=== PATIENT | male | born 1960 | race Hispanic/Latino ===

== ENCOUNTER 2017-02-22 19:50 | Inpatient (IN) | payer BC ==
[2017-02-22] MEDS ORDERED: TDAP Vaccine 0.5 mL Syr IM ONE (20:02)
[2017-02-22] MEDS ORDERED: Oxycodone/Acetaminophen 5/325 mg Tab PO STA (20:02)
--- NOTE | 2017-02-22 20:10 | ED PDOC ---
Upper Extremity Pain/Injury Time Seen by Provider: 02/22/17 19:58 Chief Complaint (Nursing): Upper Extremity Problem/Injury Chief Complaint (Provider): right hand injury History Per: Patient History/Exam Limitations: no limitations Onset/Duration Of Symptoms: Mins (prior to arrival ) Additional Complaint(s): Cj Dang is a 56 year old male, with no previous medical history, who presents to the ED via EMS after sustaining a right hand injury prior to arrival. Pt reports to carrying an A.C. up the stairs when he tripped causing the A.C. to fall on his right hand. Pt denies any head trauma, loss of consciousness or other injury. Pt denies any numbness or tingling in the hand. Pt. is R hand dominant. PMD: Dr. Chavez Past Medical History Reviewed: Historical Data, Nursing Documentation, Vital Signs Vital Signs: Last Vital Signs Temp 97.6 F 02/22/17 19:54 Pulse 92 H 02/22/17 19:54 Resp 18 02/22/17 19:54 BP 166/88 H 02/22/17 19:54 Pulse Ox 99 02/22/17 19:54 - Medical History PMH: No Chronic Diseases - Family History Family History: States: Unknown Family Hx - Allergies Allergies/Adverse Reactions: Allergies Allergy/AdvReac Type Severity Reaction Status Date / Time No Known Allergies Allergy Verified 02/17/15 09:19 Review of Systems ROS Statement: Except As Marked, All Systems Reviewed And Found Negative Musculoskeletal: Positive for: Hand Pain (right ) Neurological: Negative for: Numbness, Other (tingling ) Physical Exam - Reviewed Nursing Documentation Reviewed: Yes Vital Signs Reviewed: Yes - Physical Exam Appears: Positive for: Well, In Acute Distress (mild painful ) Head Exam: Positive for: ATRAUMATIC, NORMAL INSPECTION, NORMOCEPHALIC Skin: Positive for: Normal Color, Warm. Negative for: Rash Eye Exam: Positive for: EOMI, Normal appearance, PERRL ENT: Positive for: Normal ENT Inspection Neck: Positive for: Normal, Painless ROM Cardiovascular/Chest: Positive for: Regular Rate, Rhythm Respiratory: Positive for: CNT, Normal Breath Sounds Pulses-Radial (R): 2+ Gastrointestinal/Abdominal: Positive for: Normal Exam, Soft. Negative for: Tenderness Back: Positive for: Normal Inspection Extremity: Positive for: Tenderness (right dorsum of the hand ), Capillary Refill (< 2 seconds ), Swelling (right dorsum of the hand ), Other (0.5 cm linear laceration between 4th and 5th MCP ) Neurologic/Psych: Positive for: Alert, Oriented - Laboratory Results Result Diagrams: 02/22/17 21:20 02/22/17 21:20 - ECG ECG: Positive for: Interpreted By Me ECG Rhythm: Positive for: Sinus Rhythm. Negative for: ST/T Changes Rate: 94 O2 Sat by Pulse Oximetry: 99 (RA) Pulse Ox Interpretation: Normal - Radiology X-Ray: Interpreted by Me (CXR) X-Ray Interpretation: No Acute Disease - Progress ED Course And Treament: Hand x-ray: acute displaced fx at mid 4th metacarpal and displaced fx at 5th MCP Case d/w Dr. Plasencia (pt.'s private orthopedist and preferred orthopedist) who requests that pt. be admitted and be given Ancef. Pt. will go to OR tomorrow. NPO at midnight. Case d/w Dr. Hassan, pt.'s PMD, and arrangements made for admission. Wound was copiously irrigated and cleansed with 1L of NS. Hand immobilized in orthoglass ulnar gutter splint applied by TIM. Medical Decision Making Medical Decision Making: Initial Impression: hand injury Initial Plan: * percocet * boostrix vaccine * x-ray right hand * reevaluation Scribe Attestation: Documented by Vy Mendez, acting as a scribe for Isael Jorge PA-C. Provider Scribe Attestation: All medical record entries made by the Scribe were at my direction and personally dictated by me. I have reviewed the chart and agree that the record accurately reflects my personal performance of the history, physical exam, medical decision making, and the department course for this patient. I have also personally directed, reviewed, and agree with the discharge instructions and disposition. Disposition - Clinical Impression Clinical Impression: Open right hand fracture - Patient ED Disposition Is Patient to be Admitted: Yes - Disposition Disposition Time: 21:00 Condition: STABLE - Pt Status Changed To: Hospital Disposition Of: Inpatient - Admit Certification Admit to Inpatient:: After my assessment, the patient will require hospitalization for at least two midnights. This is because of the severity of symptoms shown, intensity of services needed, and/or the medical risk in this patient being treated as an outpatient.
[2017-02-22] MEDS ORDERED: ceFAZolin 1 GM in Sodium Chloride 0.9% 100 ML IVPB STA (20:46)
[2017-02-22] MEDS ORDERED: Sodium Chloride 0.9% 1,000 ML IV STA (20:57)
[2017-02-22] MEDS ORDERED: Povidone Iodine Topical 10% Sol ONE (21:39)
[2017-02-22 21:55] LABS: BASO # 0.1 K/uL (0.0-0.2); BASO % 0.7 % (0.0-2.0); EOS # 0.2 K/uL (0.0-0.7); EOS % 1.7 % (0.0-4.0); HEMATOCRIT 42.2 % (35.0-51.0); LYMPH % 32.6 % (20.0-40.0); MEAN CELL VOLUME 90.6 fl (80.0-94.0); MEAN CORPUSCULAR HEMOGLOBIN 31.6 pg (27.0-31.0); MEAN CORPUSCULAR HGB CONC 34.9 g/dL (33.0-37.0); MEAN PLATELET VOLUME 7.6 fl (7.2-11.7); MONO # 0.7 K/uL (0.0-0.8); NEUT # 5.2 K/uL (1.8-7.0); NRBC % 0.1 % (0.0-0.0); RED CELL DISTRIBUTION WIDTH 13.1 % (11.5-14.5); WHITE BLOOD COUNT 9.2 K/uL (4.8-10.8)
[2017-02-22 22:01] LABS: ALB/GLOB RATIO 1.3 (1.0-2.1); ALKALINE PHOSPHATASE 85 U/L (38-126); ALT/SGPT 40 U/L (21-72); AST/SGOT 36 U/L (17-59); BILIRUBIN,TOTAL 0.7 mg/dl (0.2-1.3); BLOOD UREA NITROGEN 16 mg/dl (9-20); CALCIUM 9.4 mg/dL (8.4-10.2); CARBON DIOXIDE 21 mmol/L (22-30); CHLORIDE 104 mmol/L (98-107); GFR AFRICAN-AMERICAN > 60; GLUCOSE,RANDOM 111 mg/dL (75-110); POTASSIUM 3.7 MMOL/L (3.6-5.0); SODIUM 145 mmol/l (132-148); TOTAL PROTEIN 8.5 G/DL (6.3-8.2)
[2017-02-22 22:23] LABS: PARTIAL THROMBOPLASTIN TIME 25.4 SECONDS (23.3-32.5)
[2017-02-23] MEDS: Dextrose 5%/0.45% NS 1,000 ML IV SCH (06:44)
--- NOTE | 2017-02-23 08:46 | CP.PCM.CON ---
History of Present Illness - History of Present Illness History of Present Illness: ID: 56 yo male CC: open fracture 5th MCP joint/pt with displaced angulated fractued 4th, 5th metacarpals HPI: 56 yo male/ presents after fall last PM. Pt carrying air conmditioner, sustained fall on outstretched R hand, sustaining fx R fifth metacarpal, displaced angulated fx 4th metacarpla, and with open fracture 5th MCP. Pt admitted thru ED, stabilized, splinted and open joint irrigated. Pt admitted for IV abios> Pt to OR for irrigation debridemnt and possible ORIF 4th 5th metacarpal fractures. Hand is massively swollen, so ORIF may nbe obviated today secondary to massive sweling. discussed with pt at length pt to Or TODAY Past Patient History - Past Medical History & Family History Past Medical History?: Yes - Past Social History Smoking Status: Never Smoked - MUSCULOSKELETAL/RHEUMATOLOGICAL Hx Musculoskeletal Disorders: Yes Hx Back Pain: Yes Hx Falls: Yes Hx Fractures: Yes - PSYCHIATRIC Hx Substance Use: No - SURGICAL HISTORY Hx Herniorrhaphy: Yes (40+ years ago) - ANESTHESIA Hx Anesthesia: No Hx Anesthesia Reactions: No Hx Malignant Hyperthermia: No Meds Allergies/Adverse Reactions: Allergies Allergy/AdvReac Type Severity Reaction Status Date / Time No Known Allergies Allergy Verified 02/17/15 09:19 - Medications Medications: Current Medications Dextrose/Sodium Chloride (Dextrose 5%/0.45% Ns 1000 Ml) 1,000 mls @ 40 mls/hr IV .Q24H ALEX Stop: 02/24/17 06:31 Last Admin: 02/23/17 06:44 Dose: 40 mls/hr Cefazolin Sodium 1 gm/ Sodium (Chloride) 100 mls @ 100 mls/hr IVPB Q8 ALEX Morphine Sulfate (Morphine) 2 mg IVP Q4 PRN PRN Reason: Pain, moderate (4-7) Last Admin: 02/23/17 06:40 Dose: 2 mg Physical Exam - Additional Findings Additional findings: oBJECTIVE SYSTEMIC- WNL PLEASE REFER TO dR Marge Acosta h + p Systemic stance/gait- defrred encounter accomplished at bedside N/V intact R forearm/hand splited Results - Vital Signs Recent Vital Signs: Last Vital Signs Temp 98.0 F 02/23/17 07:33 Pulse 87 02/23/17 07:33 Resp 20 02/23/17 07:33 BP 130/80 02/23/17 07:33 Pulse Ox 96 02/23/17 07:33 - Labs Result Diagrams: 02/22/17 21:20 02/22/17 21:20 Labs: Laboratory Results - last 24 hr 02/22/17 21:20 WBC 9.2 RBC 4.66 Hgb 14.7 Hct 42.2 MCV 90.6 MCH 31.6 H MCHC 34.9 RDW 13.1 Plt Count 323 MPV 7.6 Neut % (Auto) 57.0 Lymph % (Auto) 32.6 Mchenry % (Auto) 8.0 Eos % (Auto) 1.7 Baso % (Auto) 0.7 Neut # 5.2 Lymph # 3.0 Mchenry # 0.7 Eos # 0.2 Baso # 0.1 PT 10.1 INR 0.97 APTT 25.4 Sodium 145 Potassium 3.7 Chloride 104 Carbon Dioxide 21 L Anion Gap 24 H BUN 16 Creatinine 0.7 L Est GFR ( Amer) > 60 Est GFR (Non-Af Amer) > 60 Random Glucose 111 H Calcium 9.4 Total Bilirubin 0.7 AST 36 ALT 40 Alkaline Phosphatase 85 Total Protein 8.5 H Albumin 4.8 Globulin 3.7 Albumin/Globulin Ratio 1.3 Blood Type B POSITIVE Antibody Screen Negative BBK History Checked No verified bt - Imaging and Cardiology Abdominal x-ray Status: Image reviewed by me Additional comment: Xrays- displace/angulated 4th/5th metacarpal fractures Assessment & Plan - Assessment and Plan (Free Text) Assessment: A- crush injury to hand pt to OR today for irrigation debriemnt if hand is too swollen the ORIFD will be defrred to next week P- TO OR today for either the definitive procedure or for the first of staged procedure. If hand is too swollen, then the open joint will be debrided and closed. ORIF of 4th, 5th metacarpals will be done either today or deferred to next week. P{ossibility of infedction, mechanical failure thromboembolic disease secondary or tertiary surgery discusased NO Promises guarantees
[2017-02-23] MEDS: ceFAZolin 1 GM in Sodium Chloride 0.9% 100 ML IVPB SCH ×2 (08:47→16:28)
--- NOTE | 2017-02-23 09:00 | HP ---
The patient is a 56-year-old male who was admitted via the Emergency Room following an accident with trauma to the right hand and arm. He was brought to the Emergency Room by EMS. He reports carrying an air conditioner upstairs and it dropped on his right hand causing significant trauma. He did not lose consciousness. He was brought to the Emergency Room where he had x-rays which showed an open wo und, right hand with a fracture. He was therefore admitted for workup and therapy to surgicall y repair displaced fracture of the mid fourth metacarpal and displaced fracture of the fifth metacarp al joint. PAST MEDICAL HISTORY: Unremarkable. FAMILY HISTORY: Nonrevealing. SOCIAL HISTORY: He does not drink or smoke. REVIEW OF SYSTEMS: Essentially unremarkable. PHYSICAL EXAMINATION: GENERAL: The patient is alert, oriented, appears to be in moderate distress because of pain. VITAL SIGNS: Blood pressure 130/80, pulse of 87, respiratory rate 20. He is afebrile. O2 sat 96% o n room air. SKIN: Shows fair turgor. HEENT: Pupils equal, react to light and accommodation. LUNGS: Clear. HEART: Regular. No murmurs or gallops. ABDOMEN: Soft, nontender, no organomegaly. EXTREMITIES: Show edema of the right hand with an open laceration. There are fair pulses bilaterall y. CENTRAL NERVOUS SYSTEM: Grossly intact. LABORATORY DATA: Remarkable for WBC of 9.2, hemoglobin 14.7, platelet count of 323,000. Sodium of 1 45, potassium 3.7, BUN 16, creatinine 0.7. Serum glucose 111. PT 10.1, INR 0.97. Chest x-ray and x-ray of right hand done, official reports pending. EKG: Regular sinus rhythm. IMPRESSION: Trauma to right hand with a fracture of fingers and laceration with significant edema. PLAN: The patient is medically cleared for surgical intervention. No medical contraindications to s urgery. Case discussed with Dr. Plasencia. We will continue therapy as ordered. Analgesics for pain ordered. IV antibiotics also ordered. Jose Guadalupe Hassan MD cc: [id number] TT: 02/23/2017 08:59:35 en
--- NOTE | 2017-02-23 10:39 | RAD ---
HISTORY: clearance COMPARISON: No prior. FINDINGS: LUNGS: The lungs are well inflated and clear. PLEURA: No significant pleural effusion identified, no pneumothorax apparent. CARDIOVASCULAR: Normal. OSSEOUS STRUCTURES: No significant abnormalities. VISUALIZED UPPER ABDOMEN: Normal. OTHER FINDINGS: None. IMPRESSION: No active pulmonary disease.
--- NOTE | 2017-02-23 11:34 | RAD ---
PROCEDURE: Right Hand Radiographs. HISTORY: Trauma COMPARISON: 09/24/2013 FINDINGS: BONES: There is an oblique comminuted fracture in the 5th metatarsal neck with dorsal angulation. There is a transverse mildly displaced fracture in the midshaft of the 4th metatarsal. There is significant dorsal angulation. There is diffuse bone demineralization. 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 OTHER FINDINGS: None. IMPRESSION: 1. Oblique comminuted fracture in the 5th metatarsal neck with dorsal angulation. 2. Transverse mildly displaced fracture in the midshaft of the 4th metatarsal with significant dorsal angulation.
[2017-02-23] MEDS ORDERED: Bupivacaine 0.5% Inj(30mL) ONE (16:25)
[2017-02-23] MEDS ORDERED: MethylPREDNISolone Depo 40 mg/ml Inj ONE (16:25)
[2017-02-23] MEDS ORDERED: Bacitracin Ointment 30 GM TUBE ONE (16:25)
[2017-02-23] MEDS ORDERED: Thrombin Topical 5,000 IU Spray Kit ONE (16:25)
[2017-02-23] MEDS ORDERED: Absorbable Gelatin Sponge Size 12-7 ONE (16:25)
[2017-02-23] MEDS ORDERED: Propofol 10 mg/ml Inj (20 ML) ONE (16:37)
[2017-02-23] MEDS ORDERED: Midazolam 2 MG/2 ML VIAL ONE (16:38)
[2017-02-23] MEDS ORDERED: Rocuronium 10 mg/ml (5 ml) ONE ×2 (16:38→18:15)
[2017-02-23] MEDS ORDERED: Iohexol 300 100 ML IJ ONE (17:06)
[2017-02-23] MEDS ORDERED: Dexamethasone 4 mg/1 ml ONE (17:23)
[2017-02-23] MEDS ORDERED: Lactated Ringer's 1,000 ML IV ONE ×2 (17:43→19:00)
[2017-02-23] MEDS ORDERED: Sevoflurane - Inhalation Anesthetic Liq (250 ml) ONE (18:18)
--- NOTE | 2017-02-23 18:25 | CARD ---
APPROVED REPORT EKG Measurement Heart [id number] MD [id number] <Conclusion> Normal sinus rhythm Nonspecific ST and T wave abnormality Prolonged QT Abnormal ECG
[2017-02-23] MEDS ORDERED: Neostigmine Methylsulfate 3mg/3ml Syringe IV ONE (18:49)
[2017-02-23] MEDS ORDERED: Neostigmine Methylsulfate 2 MG/2 ML ML IV ONE (18:49)
--- NOTE | 2017-02-23 19:00 | PCM.SURG1 ---
Surgeon's Initial Post Op Note - Surgeon's Notes Surgeon: Erinn [employer] Curator: HEATHER Bermeo Type of Anesthesia: General Endo Anesthesia Administered By: Dr Holder Pre-Operative Diagnosis: Displaced/comminuted 5th MCP fx/fxmidshaft 4th metacarpal. \open joint 4th MCP joint Operative Findings: as above. comminuted 5th MCP fx(head split Post-Operative Diagnosis: as above Operation Performed: ORIF doisplaced 4th/5th metacarpal fx. irrigation/ debridement 4th MCP joint. applx volar splint. positioning of fluoro/ interpreattion of video Specimen/Specimens Removed: callous Estimated Blood Loss: EBL {In ML}: 15 Blood Products Given: N/A Drains Used: No Drains Post-Op Condition: Good Date of Surgery/Procedure: 02/23/17 Time of Surgery/Procedure: 17:30 (time in, room/anaesthesia induction time 1645)
--- NOTE | 2017-02-23 19:39 | PCM.ANESB1 ---
Interscalene Block - Brachial Plexus Date of Procedure: 02/23/17 Anesthesiologist: tavon Pre-Procedure Diagnosis: postprocedure acute pain Post-Procedure Diagnosis: s/p metacarpal plating/orif Procedure Performed: Interscalene Block of Brachial Plexus Right - Procedure Interscalene Block of Brachial Plexus: This procedure was explained to the patient that it is for post-operative pain management. Consent was obtained after a thorough discussion with the patient regarding the benefits and possible complications of local anesthetic block of the Brachial Plexus at the low Interscalene/ supraclavicular area. The patient was brought to the Operating Room and standard monitors were applied. Time out was held with the circulating nurse to confirm the correct surgery and appropriate block. prior to extubation, after the completion of the procedure, the patient's head was gently rotated away from the right operative shoulder and the anterior scalene groove was carefully palpated. The ultrasound transducer was then applied to the skin in the transverse plane and the brachial plexus was visualized lateral to the carotid artery and in between the anterior and middle scalene muscles, and followed cephaled until optimal supraclavicular visualization. After identification,the anterior lateral portion of the neck was prepped with Betadine solution three times. At this point, a # 22 gauge Stimuplex 2 inches insulated needle was inserted into the interscalene groove and directed in a caudal and midline direction. The needle was inserted lateral to the ultrasound transducer in-plane towards the brachial plexus in a [id number] direction. Needle advancement was performed carefully under direct ultrasound visualization. After repeated negative aspiration,20 cc of 0.5% bupivicaine was injected. Under ultrasound guidance the local anesthetics were observed spreading and surrounding brachial plexus. The needle was removed intact and sterile dressing was applied. The patient had stable vital signs, was extubated and transfered to recovery/icu with stable vital signs and no apparent distress.
[2017-02-24] MEDS: ceFAZolin 1 GM in Sodium Chloride 0.9% 100 ML IVPB SCH ×2 (00:37→10:15)
[2017-02-24] MEDS: Lactated Ringer's 1,000 ML IV SCH ×2 (00:46→06:50)
[2017-02-24] MEDS: Dextrose 5%/0.45% NS 1,000 ML IV SCH (06:30)
--- NOTE | 2017-02-24 09:45 | OP ---
PROCEDURE DATE: 02/23/2017 PREOPERATIVE DIAGNOSES: 1. Displaced fourth and fifth metacarpal fractures. 2. Injury to the fourth finger extensor tendon. 3. Open fracture fourth metacarpophalangeal joint. POSTOPERATIVE DIAGNOSES: 1. Displaced fourth and fifth metacarpal fractures. 2. Injury to the fourth finger extensor tendon. 3. Open fracture fourth metacarpophalangeal joint. PROCEDURES: 1. Open reduction and internal fixation of displaced fourth and fifth metacarpal fractures (metacarp al fractures x 2 with AO internal fixation). 2. Primary repair of extensor tendon. 3. Irrigation and debridement, open fracture/open fourth MCP joint. 4. Autograft allograft bone grafting. 5. Application of volar splint. SURGEON: Sage Plasencia MD PRE SALES NETWORK ENGINEER: Shameka Venegas, Certified Registered Nursing Golf Sales Manager. ANESTHESIA: General endotracheal anesthesia; Dr. Holder. COMPLICATIONS: None. DRAINS: None. OPERATIVE INDICATION: The patient is a 56-year-old gentleman who had sustained a traumatic injury at home when he fell down stairs with an air conditioner in his hand. The patient sustained direct tra michelle from the air conditioner, sustaining a severely displaced angulated fourth metacarpal fracture an d a fifth metacarpal fracture which is comminuted to the head. The patient presented to [facility] Emergency Room, irrigated, splinted and admitted, IV antibiotics. [facility] Pros, cons, risks and benefits of surgical approach were discussed. The possibility of i nfection, mechanical failure, thromboembolic disease, secondary or tertiary surgery is discussed. Th e patient can no longer stand the discomfort and wishes the surgery to be accomplished. The possibil ity of infection, mechanical failure, thromboembolic disease, stiffness, malrotation, secondary or ev en tertiary surgery is discussed. The patient wished the surgery be accomplished. The patient is we ll known to my practice and informed consent is obtained in the presence of the nurse. OPERATIVE PROCEDURE: After having obtained informed consent in the above fashion, after having ident ified side, site and procedure and a critical pause/timeout, after the satisfactory induction of the anesthetic, patient identified as Cj Dang, in the supine position with all bony prominences we ll padded, the right upper extremity is prepped and free draped in usual fashion for upper extremity surgery. The tourniquet had been applied, but is not yet inflated. After the satisfactory induction of the anesthetic, after having identified side, site and procedure and a critical pause/timeout, af ter the satisfactory induction of the anesthetic, the patient identified as Cj Dang, in the ansari pine position with all bony prominences well padded, under the surgeon's direction, AP and lateral im age intensification views are accomplished. Good position of the fluoroscope, interpretation of the video images is accomplished. At this point in time, the right upper extremity is prepped and free d raped in the usual fashion for upper extremity surgery. The tourniquet had been applied, but is not yet inflated. After exsanguinating the limb using a 6-inch Esmarch bandage, the tourniquet which had been applied is inflated to 250 mmHg. This having been accomplished, the operation is performed und er eyeglass magnification. The open fracture is identified. It does appear to communicate in the ar ea of the joint. Using a #15 blade, the skin, subcutaneous tissue and some muscle is excised. Thoro ugh irrigation and debridement is accomplished. The wound is thoroughly irrigated at this point in t quan with the antibiotic-impregnated solution. At this point in time, cultures are obtained. Aerobic , anaerobic, AFB and fungal cultures are obtained. The wound is thoroughly irrigated and at this poi nt in time, attention is turned to the extensor tendon. There is found to be compromise. There is a n extremely sharply angulated bony spicule of the fourth metacarpal and the communis extensor tendon is partially injured. At this point in time, the wound is thoroughly irrigated. Open reduction inte rnal fixation of the fourth metacarpal fracture is accomplished. A K-wire is placed to reduce the fr acture. Plate is applied. Each sequential drill hole is drilled, sounded with the depth gauge and t he appropriate size screw is placed. The reduction is found to be acceptable. It should be noted th at a bur is used to perform an osteoplasty of the bone and a DBX bone graft is accomplished as well a s autograft bone grafting from the fracture site and from the burrings. This having been accomplishe d, attention is turned to the extensor tendon and using the nonabsorbable FiberWire, a primary suture repair is accomplished with a modified Hancock stitch. The wound is thoroughly irrigated. Again, t he extensor tendon compromise is addressed. Attention is now turned to the fifth metacarpal. This f racture is more distal and involves the head. This having been accomplished, great care is taken to protect the extensor tendons. Fracture site is identified using a #15 blade and the head fracture is repaired with 3 interrupted K-wires offering temporary fixation. At this point in time, a T plate i s contoured and applied to the head. Each sequential screw hole is drilled, sounded and the appropri ate size screws are placed and the head fragment is thus affixed satisfactory to the bone. Allograft and autograft bone grafts are accomplished. An ulnar portion of the articular surface is compromise d and this is repaired using a cerclage with a nonabsorbable suture in that area. FiberWire is accom plished. Two interrupted FiberWires are used to repair the head. Autograft bone grafting and allogr aft bone grafting is accomplished. The extensor tendon having been repaired, closure is with interru pted Vicryl for the deep muscular layer and Vicryl and nylon for the skin. Anthony Gray compression dressing and volar splint is accomplished. X-rays reveal acceptable position of the construct. One of the head screws appears long, but that is in the ulnar to radial direction and not involving the j oint. So, the position is found to be acceptable. The patient is transferred from the operating tab le to the stretcher, having tolerated the procedure well. OPERATIVE PROCEDURE: 1. Open reduction and internal fixation of fourth metacarpal fracture. 2. Open reduction internal fixation of fifth metacarpal fracture. 3. Irrigation and debridement, open joint and wound.. 4. Excision skin, subcutaneous tissues and muscle, irrigation and debridement of the wound. 5. Autograft, allograft bone graft. 6. Application of volar splint. BLOOD LOSS: Approximately 15 mL. Sage Plasencia MD cc: [id number] TT: 02/24/2017 09:45:07 tn
--- NOTE | 2017-02-24 09:48 | CP.PCM.PN ---
Subjective - Date & Time of Evaluation Date of Evaluation: 02/24/17 Time of Evaluation: 09:45 - Subjective Subjective: S with post op incional discomfort Objective - Vital Signs/Intake and Output Vital Signs (last 24 hours): Temp Pulse Resp BP Pulse Ox 97.3 F L 79 20 147/93 H 97 02/24/17 07:37 02/24/17 07:37 02/24/17 07:37 02/24/17 07:37 02/24/17 07:37 Intake and Output: 02/24/17 02/24/17 06:59 18:59 Intake Total 275 Balance 275 - Medications Medications: Current Medications Lactated Ringer's (Lactated Ringer's) 1,000 mls @ 75 mls/hr IV .[id number] ALEX Last Admin: 02/24/17 06:50 Dose: Not Given Cefazolin Sodium 1 gm/ Sodium (Chloride) 100 mls @ 100 mls/hr IVPB Q8 ALEX Stop: 02/24/17 09:59 Last Admin: 02/24/17 00:37 Dose: 100 mls/hr Morphine Sulfate (Morphine) 2 mg IVP Q3 PRN PRN Reason: Pain, moderate (4-7) Last Admin: 02/24/17 07:16 Dose: 2 mg - Labs Labs: 02/22/17 21:20 02/22/17 21:20 PT 10.1 SECONDS (9.6-11.2) 02/22/17 21:20 INR 0.97 (0.92-1.08) 02/22/17 21:20 APTT 25.4 SECONDS (23.3-32.5) 02/22/17 21:20 - Additional Findings Additional findings: Obj systemic- as per Dr Hassan Musculoskekltal stance/gait- defrred R upper ext immobilized in volar splint post op Xrays- acceptable position of construct Assessment and Plan - Assessment and Plan (Free Text) Assessment: A- s/p ORIF R 4th/5th MCP fxs P= as per Dr Hassan orthopedicallyIV abios to continue stable
--- NOTE | 2017-02-24 10:48 | CP.PCM.PN ---
Subjective - Date & Time of Evaluation Date of Evaluation: 02/24/17 Time of Evaluation: 10:49 - Subjective Subjective: S/P SURGICAL REPAIR OF FRACTURED R HAND STILL IN PAIN EDEMA OF R ARM/HAND--R HAND IN A SLING Objective - Vital Signs/Intake and Output Vital Signs (last 24 hours): Temp Pulse Resp BP Pulse Ox 97.3 F L 79 20 147/93 H 97 02/24/17 07:37 02/24/17 07:37 02/24/17 07:37 02/24/17 07:37 02/24/17 07:37 Intake and Output: 02/24/17 02/24/17 06:59 18:59 Intake Total 275 Balance 275 - Medications Medications: Current Medications Lactated Ringer's (Lactated Ringer's) 1,000 mls @ 75 mls/hr IV .[id number] ALEX Last Admin: 02/24/17 06:50 Dose: Not Given Morphine Sulfate (Morphine) 2 mg IVP Q3 PRN PRN Reason: Pain, moderate (4-7) Last Admin: 02/24/17 10:09 Dose: 2 mg - Labs Labs: 02/22/17 21:20 02/22/17 21:20 PT 10.1 SECONDS (9.6-11.2) 02/22/17 21:20 INR 0.97 (0.92-1.08) 02/22/17 21:20 APTT 25.4 SECONDS (23.3-32.5) 02/22/17 21:20 - Constitutional Appears: In Acute Distress - Head Exam Head Exam: ATRAUMATIC, NORMAL INSPECTION, NORMOCEPHALIC - Eye Exam Eye Exam: EOMI, Normal appearance, PERRL Pupil Exam: NORMAL ACCOMODATION, PERRL - ENT Exam ENT Exam: Mucous Membranes Moist, Normal Exam - Neck Exam Neck Exam: Full ROM, Normal Inspection. absent: Lymphadenopathy - Respiratory Exam Respiratory Exam: Clear to Ausculation Bilateral, NORMAL BREATHING PATTERN - Cardiovascular Exam Cardiovascular Exam: REGULAR RHYTHM, +S1, +S2. absent: Murmur - GI/Abdominal Exam GI & Abdominal Exam: Soft, Normal Bowel Sounds. absent: Tenderness - Rectal Exam Rectal Exam: NORMAL INSPECTION - Extremities Exam Extremities Exam: Full ROM, Normal Capillary Refill, Normal Inspection. absent : Joint Swelling, Pedal Edema Additional comments: EDEMA WITH INFECTION OF R HAND - Back Exam Back Exam: NORMAL INSPECTION - Neurological Exam Neurological Exam: Alert, Awake, CN II-XII Intact, Normal Gait, Oriented x3 - Psychiatric Exam Psychiatric exam: Normal Affect, Normal Mood - Skin Skin Exam: Dry, Intact, Normal Color, Warm Assessment and Plan - Assessment and Plan (Free Text) Assessment: FRACTURE R HAND--FINGERS EDEMA/CELLULITIS OF R HAND S/P SURGICAL REPAIR OF R HAND Plan: CONTINUE ANALGESICS AND IV ANTIBIOTICS
--- NOTE | 2017-02-24 11:31 | RAD ---
PROCEDURE: Fluoroscopy up to 1 hr. HISTORY: RT. HAND 4TH -5TH METACARPAL FX COMPARISON: None TECHNIQUE: Standard protocol for this study/examination. FINDINGS: Submitted images from the current procedure: 6.0. Total fluoroscopic time (continuous mode) utilized during the procedure: 7.5 seconds. IMPRESSION: Less than 1 hr fluoroscopic time utilized during performance of the procedure.
[2017-02-24 21:02] VITALS: RESP 20
--- NOTE | 2017-02-25 11:19 | CP.PCM.PN ---
Subjective - Date & Time of Evaluation Date of Evaluation: 02/25/17 Time of Evaluation: 11:19 - Subjective Subjective: PAIN AND SWELLING OF R HAND PERSISTS Objective - Vital Signs/Intake and Output Vital Signs (last 24 hours): Temp Pulse Resp BP Pulse Ox 97.8 F 93 H 20 146/88 94 L 02/25/17 07:33 02/25/17 07:33 02/25/17 07:33 02/25/17 07:33 02/25/17 07:33 - Medications Medications: Current Medications Morphine Sulfate (Morphine) 2 mg IVP Q3 PRN PRN Reason: Pain, moderate (4-7) Last Admin: 02/25/17 07:26 Dose: 2 mg Oxycodone/Acetaminophen (Percocet 5/325 Mg Tab) 2 tab PO Q4 PRN PRN Reason: Pain, moderate (4-7) Stop: 02/28/17 11:16 - Labs Labs: 02/22/17 21:20 02/22/17 21:20 PT 10.1 SECONDS (9.6-11.2) 02/22/17 21:20 INR 0.97 (0.92-1.08) 02/22/17 21:20 APTT 25.4 SECONDS (23.3-32.5) 02/22/17 21:20 - Constitutional Appears: In Acute Distress - Head Exam Head Exam: ATRAUMATIC, NORMAL INSPECTION, NORMOCEPHALIC - Eye Exam Eye Exam: EOMI, Normal appearance, PERRL Pupil Exam: NORMAL ACCOMODATION, PERRL - ENT Exam ENT Exam: Mucous Membranes Moist, Normal Exam - Neck Exam Neck Exam: Full ROM, Normal Inspection. absent: Lymphadenopathy - Respiratory Exam Respiratory Exam: Clear to Ausculation Bilateral, NORMAL BREATHING PATTERN - Cardiovascular Exam Cardiovascular Exam: REGULAR RHYTHM, +S1, +S2. absent: Murmur - GI/Abdominal Exam GI & Abdominal Exam: Soft, Normal Bowel Sounds. absent: Tenderness - Rectal Exam Rectal Exam: NORMAL INSPECTION - Extremities Exam Extremities Exam: Full ROM, Normal Capillary Refill. absent: Joint Swelling, Pedal Edema Additional comments: PAIN AND SWELLING OF R HAND - Back Exam Back Exam: NORMAL INSPECTION - Neurological Exam Neurological Exam: Alert, Awake, CN II-XII Intact, Normal Gait, Oriented x3 - Psychiatric Exam Psychiatric exam: Normal Affect, Normal Mood - Skin Skin Exam: Dry, Intact, Normal Color, Warm Assessment and Plan - Assessment and Plan (Free Text) Assessment: TRAUMA R HAND FRACTURE OF FINGERS EDEMA AND CELLULITIS OF R HAND Plan: ANALGESICA AND ANTIBIOTICS ORTHO FOLLOW UP
[2017-02-25] MEDS: Oxycodone/Acetaminophen 5/325 mg Tab PO PRN ×3 (14:28→22:41)
[2017-02-25] MEDS: ceFAZolin 1 GM in Sodium Chloride 0.9% 100 ML IVPB SCH (20:45)
[2017-02-26] MEDS: Oxycodone/Acetaminophen 5/325 mg Tab PO PRN ×3 (02:40→09:58)
[2017-02-26 07:34] VITALS: BP 127/81; PULSE 72; TEMP 97.8; O2SAT 96
--- NOTE | 2017-02-26 08:24 | CP.PCM.DIS ---
Provider - Provider Date of Admission: 02/22/17 21:07 Attending physician: Jose Guadalupe Hassan MD Time Spent in preparation of Discharge (in minutes): 30 Diagnosis - Discharge Diagnosis (1) Open right hand fracture Status: Acute (2) Cellulitis of right hand excluding fingers and thumb Status: Acute Hospital Course - Lab Results Lab Results: Micro Results 02/22/17 21:20 Blood Blood Culture - Preliminary NO GROWTH AFTER 48 HOURS 02/22/17 21:25 Blood Blood Culture - Preliminary NO GROWTH AFTER 48 HOURS Most Recent Lab Values WBC 9.2 K/uL (4.8-10.8) 02/22/17 21:20 RBC 4.66 Mil/uL (4.40-5.90) 02/22/17 21:20 Hgb 14.7 g/dL (12.0-18.0) 02/22/17 21:20 Hct 42.2 % (35.0-51.0) 02/22/17 21:20 MCV 90.6 fl (80.0-94.0) 02/22/17 21:20 MCH 31.6 pg (27.0-31.0) H 02/22/17 21:20 MCHC 34.9 g/dL (33.0-37.0) 02/22/17 21:20 RDW 13.1 % (11.5-14.5) 02/22/17 21:20 Plt Count 323 K/uL (130-400) 02/22/17 21:20 MPV 7.6 fl (7.2-11.7) 02/22/17 21:20 Neut % (Auto) 57.0 % (50.0-75.0) 02/22/17 21:20 Lymph % (Auto) 32.6 % (20.0-40.0) 02/22/17 21:20 Leon % (Auto) 8.0 % (0.0-10.0) 02/22/17 21:20 Eos % (Auto) 1.7 % (0.0-4.0) 02/22/17 21:20 Baso % (Auto) 0.7 % (0.0-2.0) 02/22/17 21:20 Neut # 5.2 K/uL (1.8-7.0) 02/22/17 21:20 Lymph # 3.0 K/uL (1.0-4.3) 02/22/17 21:20 Leon # 0.7 K/uL (0.0-0.8) 02/22/17 21:20 Eos # 0.2 K/uL (0.0-0.7) 02/22/17 21:20 Baso # 0.1 K/uL (0.0-0.2) 02/22/17 21:20 PT 10.1 SECONDS (9.6-11.2) 02/22/17 21:20 INR 0.97 (0.92-1.08) 02/22/17 21:20 APTT 25.4 SECONDS (23.3-32.5) 02/22/17 21:20 Sodium 145 mmol/l (132-148) 02/22/17 21:20 Potassium 3.7 MMOL/L (3.6-5.0) 02/22/17 21:20 Chloride 104 mmol/L (98-107) 02/22/17 21:20 Carbon Dioxide 21 mmol/L (22-30) L 02/22/17 21:20 Anion Gap 24 (10-20) H 02/22/17 21:20 BUN 16 mg/dl (9-20) 02/22/17 21:20 Creatinine 0.7 mg/dL (0.8-1.5) L 02/22/17 21:20 Est GFR ( Amer) > 60 02/22/17 21:20 Est GFR (Non-Af Amer) > 60 02/22/17 21:20 Random Glucose 111 mg/dL (75-110) H 02/22/17 21:20 Calcium 9.4 mg/dL (8.4-10.2) 02/22/17 21:20 Total Bilirubin 0.7 mg/dl (0.2-1.3) 02/22/17 21:20 AST 36 U/L (17-59) 02/22/17 21:20 ALT 40 U/L (21-72) 02/22/17 21:20 Alkaline Phosphatase 85 U/L (38-126) 02/22/17 21:20 Total Protein 8.5 G/DL (6.3-8.2) H 02/22/17 21:20 Albumin 4.8 g/dL (3.5-5.0) 02/22/17 21:20 Globulin 3.7 gm/dL (2.2-3.9) 02/22/17 21:20 Albumin/Globulin Ratio 1.3 (1.0-2.1) 02/22/17 21:20 Blood Type B POSITIVE 02/22/17 21:20 Antibody Screen Negative 02/22/17 21:20 BBK History Checked No verified bt 02/22/17 21:20 - Hospital Course Hospital Course: EDEMA AND TENDERNESS OF R HAND Discharge Exam - Head Exam Head Exam: ATRAUMATIC, NORMAL INSPECTION, NORMOCEPHALIC - Eye Exam Eye Exam: EOMI, Normal appearance, PERRL Pupil Exam: NORMAL ACCOMODATION, PERRL - GI/Abdominal Exam GI & Abdominal Exam: Normal Bowel Sounds - Rectal Exam Rectal Exam: NORMAL INSPECTION - Extremities Exam Additional comments: EDEMA AND TENDERNESS OF R HAND GOOD RANGE OF MOTION OVER FINGERS - Neurological Exam Neurological exam: Alert, CN II-XII Intact, Normal Gait, Oriented x3, Reflexes Normal - Psychiatric Exam Psychiatric exam: Normal Affect, Normal Mood - Skin Skin Exam: Dry, Intact, Normal Color, Warm Discharge Plan - Follow Up Plan Condition: STABLE Disposition: HOME/ ROUTINE Patient education suggested?: Yes Additional Instructions: DISCHARGE TODAY ON NAPROSYN AND KEFLEX FOLLOWUP WITH DR ANTHONY
[2017-02-26] MEDS: ceFAZolin 1 GM in Sodium Chloride 0.9% 100 ML IVPB SCH (09:17)
--- NOTE | 2017-02-27 15:03 | PQF GENQUE ---
Dr. Hassan cellulitis of right hand was documented in 02/24 progress note. Was pt's cellulitis present or not present on admission? This form is a permanent part of the medical record Clarification of your documentation is requested to better reflect the severity of illness and intensity of treatment of your patient. Indicators present [] Specify: [] [] Specify: [] [] Specify: [] [] Specify: [] Location in the medical record that reflects the above clinical findings: [] progress note Treatment Provided: [] PHYSICIAN'S RESPONSE Based on your medical judgment of the clinical indicators outlined above please clarify the following: [] Practitioner response [] If unable to determine, please check the box, sign and date. Present On Admission (POA) Indicator: [] Present at the time of admission [] Not present at the time of admission [] Clinically Undetermined In responding to this query, please exercise your independent professional judgment. The fact that a question is asked does not imply that any particular answer is desired or expected. Thank you for your clarification on this documentation. If you have any questions please call:[ ] * Thank you, [ ]Tamara Cotton drug clerk MINI
== END 2017-02-26 15:19 | disposition home or self-care (01) | DRG 513 ==
LOC: H.ER 19:50 → H.ERHOLD 21:07 → H.MEDSURG1 02-23 00:18
PROVIDERS: ADMIT Internal Medicine Pulmonary Disease; ATTEND Internal Medicine Pulmonary Disease
PROC: 3E0234Z Introduction of Serum, Toxoid and Vaccine into Muscle, Percutaneous Approach (ICD-10-PCS; principal; 2017-02-22)
PROC: 0KBC0ZZ Excision of Right Hand Muscle, Open Approach (ICD-10-PCS; 2017-02-23)
PROC: 0LQ70ZZ Repair Right Hand Tendon, Open Approach (ICD-10-PCS; 2017-02-23)
PROC: 0PSP04Z Reposition Right Metacarpal with Internal Fixation Device, Open Approach (ICD-10-PCS; 2017-02-23)
PROC: 0PU Upper Bones, Supplement (ICD-10-PCS; 2017-02-23)
PROC: 3E0T3BZ Introduction of Anesthetic Agent into Peripheral Nerves and Plexi, Percutaneous Approach (ICD-10-PCS; 2017-02-23)
PROC: 0PSP04Z Reposition Right Metacarpal with Internal Fixation Device, Open Approach (ICD-10-PCS; 2017-02-23 17:00)
DX: S62.304B Unspecified fracture of fourth metacarpal bone, right hand, initial encounter for open fracture (principal); S66.324A Laceration of extensor muscle, fascia and tendon of right ring finger at wrist and hand level, initial encounter; L03.113 Cellulitis of right upper limb; S62.306A Unspecified fracture of fifth metacarpal bone, right hand, initial encounter for closed fracture; S61.411A Laceration without foreign body of right hand, initial encounter; Z23 Encounter for immunization; W20.8XXA Other cause of strike by thrown, projected or falling object, initial encounter

== ENCOUNTER 2017-11-19 06:50 | Inpatient (IN) | payer BC ==
[2017-11-19] MEDS ORDERED: Sodium Chloride 0.9% 1,000 ML IV STA (07:45)
--- NOTE | 2017-11-19 07:54 | ED PDOC ---
HPI: Chest Pain Time Seen by Provider: 11/19/17 07:37 Chief Complaint (Nursing): Chest Pain Chief Complaint (Provider): Chest Pain History Per: Patient History/Exam Limitations: no limitations Onset/Duration Of Symptoms: Days (x 2) Current Symptoms Are (Timing): Still Present Additional Complaint(s): 57 ear old male with a history of COPD was brought to the ED via [facility] with left sided chest pain, onset 2 days ago. Pain radiates to left shoulder and is associated with cough, nausea, vomiting and epigastric pain. Denies fever and SOB. PMD: Dr. Jose Guadalupe Hassan MD Past Medical History Reviewed: Historical Data, Nursing Documentation, Vital Signs Vital Signs: Last Vital Signs Temp 98.2 F 11/19/17 07:05 Pulse 124 H 11/19/17 07:05 Resp 18 11/19/17 07:05 BP 157/85 H 11/19/17 07:05 Pulse Ox 95 11/19/17 10:20 - Medical History PMH: COPD, Fractures - Surgical History Surgical History: Hernia Repair - Family History Family History: States: Unknown Family Hx - Home Medications Home Medications: Ambulatory Orders Medication Instructions Recorded Cephalexin [Keflex] 500 mg PO TID #15 capsule 02/26/17 Naproxen [Naprosyn Tab] 375 mg PO BID #30 tab 02/26/17 oxyCODONE/Acetaminophen [Percocet 1 tab PO Q6 #15 tab 02/26/17 5/325 mg Tab] - Allergies Allergies/Adverse Reactions: Allergies Allergy/AdvReac Type Severity Reaction Status Date / Time No Known Allergies Allergy Verified 02/17/15 09:19 Review of Systems ROS Statement: Except As Marked, All Systems Reviewed And Found Negative Constitutional: Negative for: Fever Cardiovascular: Positive for: Chest Pain (left sided) Respiratory: Negative for: Shortness of Breath Gastrointestinal: Positive for: Nausea, Vomiting, Abdominal Pain (epigastric) Physical Exam - Reviewed Nursing Documentation Reviewed: Yes Vital Signs Reviewed: Yes - Physical Exam Appears: Positive for: Non-toxic Head Exam: Positive for: ATRAUMATIC, NORMOCEPHALIC Skin: Positive for: Normal Color, Warm, Dry Eye Exam: Positive for: EOMI, Normal appearance, PERRL Cardiovascular/Chest: Positive for: Regular Rate, Rhythm Respiratory: Positive for: Decreased Breath Sounds (bilaterally). Negative for : Wheezing Gastrointestinal/Abdominal: Positive for: Tenderness (epigastric) Extremity: Positive for: Normal ROM. Negative for: Calf Tenderness, Swelling Neurologic/Psych: Positive for: Alert, Oriented (x 3) - Laboratory Results Result Diagrams: 11/19/17 08:20 11/19/17 08:20 - ECG O2 Sat by Pulse Oximetry: 95 (RA) Pulse Ox Interpretation: Normal Medical Decision Making Medical Decision Making: Time: 07:45 Initial Plan: --EKG --CMP --Troponin --CBC --Urine dip --Chest x-ray --Normal Saline --Nitroglycerin .4 mg SL --Pepcid 20 mg IVP --Zofran Inj 4 mg IVP Time: 08:57 Chest X-ray FINDINGS: LUNGS: No active pulmonary disease. Improved inspiratory volume is identified. PLEURA: No significant pleural effusion identified. No pneumothorax apparent. CARDIOVASCULAR: Normal. OSSEOUS STRUCTURES: No significant abnormalities. VISUALIZED UPPER ABDOMEN: Normal. OTHER FINDINGS: None. IMPRESSION: No interval acute cardiopulmonary disease appreciated. Improved inspiratory volume noted bilaterally. Scribe Attestation: Documented by Mima Mc, acting as a scribe for Ashish Valentin MD Provider Scribe Attestation: All medical record entries made by the Scribe were at my direction and personally dictated by me. I have reviewed the chart and agree that the record accurately reflects my personal performance of the history, physical exam, medical decision making, and the department course for this patient. I have also personally directed, reviewed, and agree with the discharge instructions and disposition. Disposition - Clinical Impression Clinical Impression: Chest pain - Patient ED Disposition Is Patient to be Admitted: Yes - Disposition Disposition Time: 10:20 Condition: FAIR Forms: [employer] (Guyanese) - Pt Status Changed To: Hospital Disposition Of: Observation - POA Present On Arrival: None
[2017-11-19 08:32] LABS: BASO % 0.3 % (0.0-2.0); EOS # 0.1 K/uL (0.0-0.7); EOS % 0.4 % (0.0-4.0); HEMOGLOBIN 16.4 g/dL (12.0-18.0); LYMPH # 0.6 K/uL (1.0-4.3); LYMPH % 4.3 % (20.0-40.0); MEAN CELL VOLUME 90.1 fl (80.0-94.0); MEAN CORPUSCULAR HEMOGLOBIN 30.3 pg (27.0-31.0); MEAN CORPUSCULAR HGB CONC 33.6 g/dL (33.0-37.0); MEAN PLATELET VOLUME 8.4 fl (7.2-11.7); MONO % 7.6 % (0.0-10.0); NEUT # 11.7 K/uL (1.8-7.0); NEUT % 87.4 % (50.0-75.0); PLATELET COUNT 312 K/uL (130-400); RBC 5.41 Mil/uL (4.40-5.90); RED CELL DISTRIBUTION WIDTH 13.1 % (11.5-14.5); WHITE BLOOD COUNT 13.4 K/uL (4.8-10.8)
[2017-11-19 08:38] LABS: ALBUMIN 4.9 g/dL (3.5-5.0); ALT/SGPT 57 U/L (21-72); AST/SGOT 27 U/L (17-59); BLOOD UREA NITROGEN 17 mg/dl (9-20); CALCIUM 9.4 mg/dL (8.4-10.2); GFR AFRICAN-AMERICAN > 60; GFR NON-AFRICAN AMERICAN > 60
[2017-11-19 08:43] LABS: ALB/GLOB RATIO 1.3 (1.0-2.1)
--- NOTE | 2017-11-19 08:59 | RAD ---
HISTORY: chest pain COMPARISON: Portable chest 02/22/2017. TECHNIQUE: Chest PA and lateral FINDINGS: LUNGS: No active pulmonary disease. Improved inspiratory volume is identified. PLEURA: No significant pleural effusion identified. No pneumothorax apparent. CARDIOVASCULAR: Normal. OSSEOUS STRUCTURES: No significant abnormalities. VISUALIZED UPPER ABDOMEN: Normal. OTHER FINDINGS: None. IMPRESSION: No interval acute cardiopulmonary disease appreciated. Improved inspiratory volume noted bilaterally.
[2017-11-19 10:00] LABS: LYMPHOCYTE 3 % (20-50); MONOCYTE 7 % (0-10); NEUTROPHIL 90 % (42-75); PLATELET ESTIMATE NORMAL (NORMAL); TOTAL CELLS COUNTED 100
--- NOTE | 2017-11-19 17:30 | CP.PCM.CON ---
History of Present Illness - History of Present Illness History of Present Illness: I was asked to see patient by Dr Hassan. Patient is a 57 year old male with PMH HTN, hypercholesterolemia who presents with chest pain. He describes a pressure like sensation which occurs with exertion. It is left sided without radiation. There was associated dyspnea. Symptoms began one day prior to the admission. The patient states symptoms are persistent and therefore he presented to [facility]. Review of Systems - Constitutional Constitutional: absent: As Per HPI, Anorexia, Chills, Daytime Sleepiness, Excessive Sweating, Fatigue, Fever, Frequent Falls, Headache, Increased Appetite , Lethargy, Malaise, Night Sweats, Snoring, Sleep Apnea, Weight Gain, Weight Loss, Weakness, Other - EENT Eyes: absent: As Per HPI, Blind Spots, Blurred Vision, Change in Vision, Decreased Night Vision, Diplopia, Discharge, Dry Eye, Exophthalmos, Floaters, Irritation, Itchy Eyes, Loss of Peripheral Vision, Pain, Photophobia, Requires Corrective Lenses, Sees Flashes, Spots in Vision, Tunnel Vision, Other Visual Disturbances, Loss of Vision, Other Ears: absent: As Per HPI, Decreased Hearing, Ear Discharge, Ear Pain, Tinnitus, Abnormal Hearing, Disequilibrium, Dizziness, Other Nose/Mouth/Throat: absent: As Per HPI, Epistaxis, Nasal Congestion, Nasal Discharge, Nasal Obstruction, Nasal Trauma, Nose Pain, Post Nasal Drip, Sinus Pain, Sinus Pressure, Bleeding Gums, Change in Voice, Dental Pain, Dry Mouth, Dysphagia, Halitosis, Hoarsness, Lip Swelling, Mouth Lesions, Mouth Pain, Odynophagia, Sore Throat, Throat Swelling, Tongue Swelling, Facial Pain, Neck Pain, Neck Mass, Other - Cardiovascular Cardiovascular: Chest Pain, Dyspnea - Respiratory Respiratory: Dyspnea - Gastrointestinal Gastrointestinal: absent: As Per HPI, Abdominal Pain, Belching, Bloating, Change in Bowel Habits, Change in Stool Character, Coffee Ground Emesis, Constipation, Cramping, Diarrhea, Dyspepsia, Dysphagia, Early Satiety, Excessive Flatus, Fecal Incontinence, Heartburn, Hematemesis, Hematochezia, Loose Stools, Melena, Nausea, Odynophagia, Temesmus, Vomiting, Other - Genitourinary Genitourinary: absent: As Per HPI, Change in Urinary Stream, Difficulty Urinating, Dysuria, Flank Pain, Hematuria, Pyuria, Nocturia, Urinary Incontinence, Urinary Frequency, Urinary Hesitance, Urinary Urgency, Voiding Freq/Small Amts, Freq UTI, Hx Renal/Bladder Calculi, Hx /Renal Surgery, Bladder Distension, Other - Musculoskeletal Musculoskeletal: absent: As Per HPI, Abnormal Gait, Arthralgias, Atrophy, Back Pain, Deformity, Joint Swelling, Limited Range of Motion, Loss of Height, Muscle Cramps, Muscle Weakness, Myalgias, Neck Pain, Numbness, Radiating Pain into Limb, Stiffness, Tingling, Other - Integumentary Integumentary: absent: As Per HPI, Acne, Alopecia, Bleeding Lesions, Change in Hair, Change in Nails, Change in Pigmentation, Changing Lesions, Dry Skin, Erythema, Furuncle, Hirsutism, Lesions, New Lesions, Non-Healing Lesions, Photosensitivity, Pruritus, Rash, Skin Pain, Skin Ulcer, Sores, Striae, Swelling , Unusual Bruising, Wounds, Jaundice, Other - Neurological Neurological: absent: As Per HPI, Abnormal Gait, Abnormal Hearing, Abnormal Movements, Abnormal Speech, Behavioral Changes, Burning Sensations, Confusion, Convulsions, Disequilibrium, Dizziness, Numbness, Focal Weakness, Frequent Falls , Headaches, Lack of Coordination, Loss of Vision, Memory Loss, Paresthesias, Radicular Pain, Restless Legs, Sensory Deficit, Syncope, Tingling, Tremor, Vertigo, Weakness, Other Visual Disturbances, Other - Psychiatric Psychiatric: absent: As Per HPI, Abnormal Sleep Pattern, Anhedonia, Anxiety, Auditory Hallucinations, Behavioral Changes, Change in Appetite, Change in Libido, Confusion, Depression, Difficulty Concentrating, Hallucinations, Homicidal Ideation, Hopelessness, Irritability, Memory Loss, Mood Swings, Panic Attacks, Paranoia, Suicidal Ideation, Visual Hallucinations, Tactile Hallucinations, Other - Endocrine Endocrine: absent: As Per HPI, Change in Body Appearance, Change in Libido, Cold Intolorance, Deepening of Voice, Excessive Sweating, Fatigue, Flushing, Heat Intolorance, Increase in Ring/Shoe/Hat Size, Palpitations, Polydipsia, Polyphagia, Polyuria, Other - Hematologic/Lymphatic Hematologic: absent: As Per HPI, Easy Bleeding, Easy Bruising, Lymphadenopathy, Other Past Patient History - Past Medical History & Family History Past Medical History?: Yes - Past Social History Smoking Status: Never Smoked - PULMONARY Hx Chronic Obstructive Pulmonary Disease (COPD): Yes - MUSCULOSKELETAL/RHEUMATOLOGICAL Hx Musculoskeletal Disorders: Yes (back pain) - PSYCHIATRIC Hx Substance Use: No - SURGICAL HISTORY Hx Herniorrhaphy: Yes (40+ years ago) - ANESTHESIA Hx Anesthesia: No Hx Anesthesia Reactions: No Hx Malignant Hyperthermia: No Meds Allergies/Adverse Reactions: Allergies Allergy/AdvReac Type Severity Reaction Status Date / Time No Known Allergies Allergy Verified 02/17/15 09:19 - Medications Medications: Current Medications Acetaminophen (Tylenol 325mg Tab) 650 mg PO Q4 PRN PRN Reason: Pain, moderate (4-7) Aspirin (Ecotrin) 81 mg PO DAILY ALEX Enoxaparin Sodium (Lovenox) 40 mg SC DAILY ALEX PRN Reason: Protocol Sodium Chloride (Sodium Chloride 0.9%) 1,000 mls @ 100 mls/hr IV .Q10H STA Stop: 11/19/17 17:44 Last Admin: 11/19/17 08:42 Dose: 100 mls/hr Ondansetron HCl (Zofran Inj) 4 mg IVP Q6 PRN PRN Reason: Nausea/Vomiting Last Admin: 11/19/17 16:49 Dose: 4 mg Pantoprazole Sodium (Protonix Inj) 40 mg IVP DAILY [facility] Physical Exam - Constitutional Appears: Non-toxic - Head Exam Head Exam: NORMAL INSPECTION - Eye Exam Eye Exam: Normal appearance - ENT Exam ENT Exam: Mucous Membranes Moist - Neck Exam Neck exam: Positive for: Full Rom - Respiratory Exam Respiratory Exam: NORMAL BREATHING PATTERN - Cardiovascular Exam Cardiovascular Exam: REGULAR RHYTHM - GI/Abdominal Exam GI & Abdominal Exam: Normal Bowel Sounds - Rectal Exam Rectal Exam: Deferred - Extremities Exam Extremities exam: Positive for: normal inspection - Back Exam Back exam: NORMAL INSPECTION - Neurological Exam Neurological exam: Alert, Oriented x3 - Psychiatric Exam Psychiatric exam: Normal Affect - Skin Skin Exam: Normal Color Results - Vital Signs Recent Vital Signs: Last Vital Signs Temp 97.8 F 11/19/17 16:16 Pulse 103 H 11/19/17 16:16 Resp 16 11/19/17 16:16 BP 144/89 11/19/17 16:16 Pulse Ox 96 11/19/17 16:16 - Labs Result Diagrams: 11/19/17 08:20 11/19/17 08:20 Labs: Laboratory Results - last 24 hr 11/19/17 11/19/17 11/19/17 08:20 08:20 16:04 WBC 13.4 H RBC 5.41 Hgb 16.4 Hct 48.7 MCV 90.1 MCH 30.3 MCHC 33.6 RDW 13.1 Plt Count 312 MPV 8.4 Neut % (Auto) 87.4 H Lymph % (Auto) 4.3 L [place] % (Auto) 7.6 Eos % (Auto) 0.4 Baso % (Auto) 0.3 Neut # 11.7 H Lymph # 0.6 L [place] # 1.0 H Eos # 0.1 Baso # 0.0 Neutrophils % (Manual) 90 H Lymphocytes % (Manual) 3 L Monocytes % (Manual) 7 Platelet Estimate Normal RBC Morphology Normal Sodium 142 Potassium 3.7 Chloride 103 Carbon Dioxide 24 Anion Gap 19 BUN 17 Creatinine 0.8 Est GFR ( Amer) > 60 Est GFR (Non-Af Amer) > 60 Random Glucose 144 H Calcium 9.4 Total Bilirubin 1.3 AST 27 ALT 57 Alkaline Phosphatase 78 Troponin I < 0.0120 < 0.0120 Total Protein 8.6 H Albumin 4.9 Globulin 3.7 Albumin/Globulin Ratio 1.3 - EKG Data EKG Interpreted by: Myself EKG shows normal: Sinus rhythm Assessment & Plan (1) Chest pain Assessment and Plan: patient's symptoms are conceerning ofr unstable angina. recommend seial cardia enzymes. Patient will benefit from nuclear stress testing. recommend echocardiogram. will follow. Status: Acute
[2017-11-19 18:26] LABS: INR 1.1 (0.9-1.2); PARTIAL THROMBOPLASTIN TIME 26.9 Seconds (25.6-37.1); PROTHROMBIN TIME 12.1 Seconds (9.8-13.1)
[2017-11-19] MEDS ORDERED: Sodium Chloride 0.9% 50 ML IV ONE (19:30)
[2017-11-19] MEDS ORDERED: Iodixanol 320 MG/ML 100 ML BOTTLE IV ONE (19:30)
--- NOTE | 2017-11-20 02:32 | HP ---
HISTORY OF PRESENT ILLNESS: Mr. Dang is a 57-year-old male, who was admitted via the emergency room after he was brought in by EMS complaining of left-sided chest pain for 2 days prior to presentation. Pain radiates to the left shoulder and to the back. He had vomited and had also some epigastric discomfort and shortness of breath. He was worked up in the emergency room and admitted to rule out acute coronary syndrome. While up on the telemetry floor, he vomited several times and it was all food particles. PAST MEDICAL HISTORY: Remarkable for chronic bronchitis, fracture of the right hand several years ago. FAMILY HISTORY: Remarkable for both parents having had coronary artery disease. SOCIAL HISTORY: He does not smoke, but is exposed to secondhand smoke from both children and . He lives at home with and children. REVIEW OF SYSTEMS: Essentially unremarkable. PHYSICAL EXAMINATION GENERAL: The patient is alert and oriented, appears to be uncomfortable because of left-sided chest pain. VITAL SIGNS: Blood pressure 157/85, pulse of 124, respiratory rate 18. He is afebrile. O2 sat 95% on room air. SKIN: Shows fair turgor. HEENT: Pupils are equal and reactive to light and accommodation. Mouth shows fair hygiene. NECK: JVP flat. LUNGS: Clear. HEART: Regular. No murmurs or gallops appreciated. CHEST: There is left-sided chest wall tenderness. ABDOMEN: Soft, nontender, no organomegaly. EXTREMITIES: Shows no edema or cyanosis. CENTRAL NERVOUS SYSTEM: Grossly intact. LABORATORY DATA: Chest x-ray shows no acute cardiopulmonary pathology. WBC 13.4, hemoglobin 16.4, platelet count 312,000. Sodium 142, potassium 3.7, BUN 17, creatinine 0.8. Serum glucose 144. Troponin less than 0.012. EKG, official report pending. IMPRESSION: Chest pain, one has to rule out acute coronary syndrome. One also has to rule out pulmonary disease. PLAN: Monitor the patient in telemetry. Obtain cardiac evaluation. We will obtain CT scan of the chest to rule out pulmonary emboli. We will continue therapy with aspirin, analgesics for pain, Zofran for nausea and vomiting and Lovenox. Jose Guadalupe Hassan MD [facility] # [id number]
[2017-11-20 05:31] LABS: MEAN CORPUSCULAR HEMOGLOBIN 30.2 pg (27.0-31.0); MEAN CORPUSCULAR HGB CONC 33.2 g/dL (33.0-37.0); RBC 4.63 Mil/uL (4.40-5.90); RED CELL DISTRIBUTION WIDTH 12.9 % (11.5-14.5)
--- NOTE | 2017-11-20 08:41 | CARD ---
APPROVED REPORT EKG Measurement Heart [id number] NM 118P [id number] <Conclusion> Sinus tachycardia Possible Lateral infarct, age undetermined Abnormal ECG
--- NOTE | 2017-11-20 09:17 | CT ---
PROCEDURE: CT Chest with contrast (Pulmonary Angiogram) HISTORY: pulmonary emboli COMPARISON: None available. TECHNIQUE: Axial computed tomography images were obtained of the chest in the pulmonary arterial phase of enhancement. Coronal and sagittal reformatted images were created and reviewed. Intravenous contrast dose: 95 mL Visipaque 320 Radiation dose: Total exam DLP = 452.9 mGy-cm. This CT exam was performed using one or more of the following dose reduction techniques: Automated exposure control, adjustment of the mA and/or kV according to patient size, and/or use of iterative reconstruction technique. FINDINGS: PULMONARY ARTERIES: Unremarkable. No pulmonary embolism. AORTA: No acute findings. No thoracic aortic aneurysm. LUNGS: Unremarkable. No mass or pulmonary consolidation. Right middle lobe 4 millimeter nodule (series 5, image 55). PLEURAL SPACES: Unremarkable. No effusion or pneuomothorax. HEART: Unremarkable. No cardiomegaly. No significant pericardial effusion. LYMPH NODES: No lymphadenopathy. BONES, CHEST WALL: Unremarkable. No fracture or destructive lesion OTHER FINDINGS: Unremarkable. IMPRESSION: Unremarkable CT pulmonary angiogram. No pulmonary embolus. Right middle lobe 4 millimeter nodule. Twelve month CT follow-up can be obtained in a high risk patient.
--- NOTE | 2017-11-20 09:21 | CP.PCM.PN ---
Subjective - Date & Time of Evaluation Date of Evaluation: 11/20/17 Time of Evaluation: 09:21 - Subjective Subjective: CHEST PAIN IMPROVED NO NAUSEA/VOMITING CARDIAC ENZYMES NEGATIVE FOR STRESS TEST TODAY D/C IF STRESS TEST IS NON -REVEALING Objective - Vital Signs/Intake and Output Vital Signs (last 24 hours): Temp Pulse Resp BP Pulse Ox 97.3 F L 100 H 18 133/77 94 L 11/20/17 08:00 11/20/17 08:00 11/20/17 08:00 11/20/17 08:00 11/20/17 08:00 - Medications Medications: Current Medications Acetaminophen (Tylenol 325mg Tab) 650 mg PO Q4 PRN PRN Reason: Pain, moderate (4-7) Aspirin (Ecotrin) 81 mg PO DAILY [facility] Enoxaparin Sodium (Lovenox) 40 mg SC DAILY [facility] PRN Reason: Protocol Ondansetron HCl (Zofran Inj) 4 mg IVP Q6 PRN PRN Reason: Nausea/Vomiting Last Admin: 11/19/17 16:49 Dose: 4 mg Pantoprazole Sodium (Protonix Inj) 40 mg IVP DAILY [facility] - Labs Labs: 11/20/17 04:25 11/19/17 08:20 PT 12.1 Seconds (9.8-13.1) 11/19/17 17:32 INR 1.1 (0.9-1.2) 11/19/17 17:32 APTT 26.9 Seconds (25.6-37.1) 11/19/17 17:32
[2017-11-20] MEDS: Enoxaparin 40 mg Syringe SC SCH (14:00)
--- NOTE | 2017-11-20 20:10 | CP.PCM.PN ---
Subjective - Date & Time of Evaluation Date of Evaluation: 11/20/17 Time of Evaluation: 19:50 - Subjective Subjective: patient has intermittent chest pain Objective - Vital Signs/Intake and Output Vital Signs (last 24 hours): Temp Pulse Resp BP Pulse Ox 98.1 F 80 16 117/75 97 11/20/17 19:46 11/20/17 19:46 11/20/17 19:46 11/20/17 19:46 11/20/17 19:46 Intake and Output: 11/20/17 11/21/17 18:59 06:59 Intake Total 1200 Output Total 2 Balance 1198 - Medications Medications: Current Medications Acetaminophen (Tylenol 325mg Tab) 650 mg PO Q4 PRN PRN Reason: Pain, moderate (4-7) Aspirin (Ecotrin) 81 mg PO DAILY [facility] Last Admin: 11/20/17 14:32 Dose: 81 mg Enoxaparin Sodium (Lovenox) 40 mg SC DAILY [facility] PRN Reason: Protocol Last Admin: 11/20/17 14:00 Dose: 40 mg Ondansetron HCl (Zofran Inj) 4 mg IVP Q6 PRN PRN Reason: Nausea/Vomiting Last Admin: 11/20/17 11:19 Dose: 4 mg Pantoprazole Sodium (Protonix Inj) 40 mg IVP DAILY [facility] Last Admin: 11/20/17 11:21 Dose: 40 mg - Labs Labs: 11/20/17 04:25 11/19/17 08:20 PT 12.1 Seconds (9.8-13.1) 11/19/17 17:32 INR 1.1 (0.9-1.2) 11/19/17 17:32 APTT 26.9 Seconds (25.6-37.1) 11/19/17 17:32 - Constitutional Appears: Non-toxic - Head Exam Head Exam: NORMAL INSPECTION - Eye Exam Eye Exam: Normal appearance - ENT Exam ENT Exam: Mucous Membranes Moist - Neck Exam Neck Exam: Normal Inspection - Respiratory Exam Respiratory Exam: NORMAL BREATHING PATTERN - Cardiovascular Exam Cardiovascular Exam: REGULAR RHYTHM - GI/Abdominal Exam GI & Abdominal Exam: Normal Bowel Sounds - Rectal Exam Rectal Exam: Deferred - Extremities Exam Extremities Exam: absent: Pedal Edema - Back Exam Back Exam: NORMAL INSPECTION - Neurological Exam Neurological Exam: Alert - Psychiatric Exam Psychiatric exam: Normal Affect - Skin Skin Exam: Normal Color Assessment and Plan (1) Chest pain Assessment & Plan: I reviewed the stress test . There appears to be hypoperfusion of the inferio wall. await officiela stress test read. add ASA, nitro. Status: Acute
[2017-11-21] MEDS: Enoxaparin 40 mg Syringe SC SCH (09:24)
--- NOTE | 2017-11-21 09:52 | CP.PCM.PN ---
Subjective - Date & Time of Evaluation Date of Evaluation: 11/21/17 Time of Evaluation: 09:52 - Subjective Subjective: STILL HAS ABDOMINAL AND CHEST PAIN BUT LESS DIARRHEA RESOLVED Objective - Vital Signs/Intake and Output Vital Signs (last 24 hours): Temp Pulse Resp BP Pulse Ox 97.4 F L 72 18 136/85 97 11/21/17 07:44 11/21/17 07:44 11/21/17 07:44 11/21/17 07:44 11/21/17 07:44 - Medications Medications: Current Medications Acetaminophen (Tylenol 325mg Tab) 650 mg PO Q4 PRN PRN Reason: Pain, moderate (4-7) Last Admin: 11/20/17 21:22 Dose: 650 mg Aspirin (Ecotrin) 81 mg PO DAILY [facility] Last Admin: 11/21/17 09:24 Dose: 81 mg Enoxaparin Sodium (Lovenox) 40 mg SC DAILY [facility] PRN Reason: Protocol Last Admin: 11/21/17 09:24 Dose: 40 mg Isosorbide Mononitrate (Imdur Er) 30 mg PO DAILY [facility] Last Admin: 11/21/17 09:24 Dose: 30 mg Ondansetron HCl (Zofran Inj) 4 mg IVP Q6 PRN PRN Reason: Nausea/Vomiting Last Admin: 11/20/17 11:19 Dose: 4 mg Pantoprazole Sodium (Protonix Inj) 40 mg IVP DAILY [facility] Last Admin: 11/21/17 09:24 Dose: 40 mg - Labs Labs: 11/20/17 04:25 11/19/17 08:20 PT 12.1 Seconds (9.8-13.1) 11/19/17 17:32 INR 1.1 (0.9-1.2) 11/19/17 17:32 APTT 26.9 Seconds (25.6-37.1) 11/19/17 17:32 - Constitutional Appears: No Acute Distress - Head Exam Head Exam: ATRAUMATIC, NORMAL INSPECTION, NORMOCEPHALIC - Eye Exam Eye Exam: EOMI, Normal appearance, PERRL Pupil Exam: NORMAL ACCOMODATION, PERRL - ENT Exam ENT Exam: Mucous Membranes Moist, Normal Exam - Neck Exam Neck Exam: Full ROM, Normal Inspection. absent: Lymphadenopathy - Respiratory Exam Respiratory Exam: Clear to Ausculation Bilateral, NORMAL BREATHING PATTERN - Cardiovascular Exam Cardiovascular Exam: REGULAR RHYTHM, +S1, +S2. absent: Murmur - GI/Abdominal Exam GI & Abdominal Exam: Soft, Normal Bowel Sounds. absent: Tenderness - Rectal Exam Rectal Exam: NORMAL INSPECTION - Extremities Exam Extremities Exam: Full ROM, Normal Capillary Refill, Normal Inspection. absent : Joint Swelling, Pedal Edema - Back Exam Back Exam: NORMAL INSPECTION - Neurological Exam Neurological Exam: Alert, Awake, CN II-XII Intact, Normal Gait, Oriented x3 - Psychiatric Exam Psychiatric exam: Normal Affect, Normal Mood - Skin Skin Exam: Dry, Intact, Normal Color, Warm Assessment and Plan - Assessment and Plan (Free Text) Assessment: CHEST PAIN-R/O ACS ABDOMINAL PAIN-R/O GALLBLADDER DZ/COLITIS Plan: CONTINUE CURRENT RX ADVANCE DIET AWAIT CARDIOLOGY DECISION RE-FURTHER INTERVENTION
--- NOTE | 2017-11-21 11:04 | US ---
HISTORY: Abdominal pain COMPARISON: None. TECHNIQUE: Sonographic evaluation of the abdomen. FINDINGS: LIVER: Measures 15.9 cm. There is diffuse increased echogenicity of the liver parenchyma. No mass. No intrahepatic bile duct dilatation. GALLBLADDER: There are no gallstones, wall thickening or pericholecystic fluid. The sonographic Morales's sign is negative. COMMON BILE DUCT: Measures 3.7 mm. No stones. No dilatation. PANCREAS: Unremarkable as visualized. No mass. No ductal dilatation. RIGHT KIDNEY: Measures 11.4cm. Normal echogenicity. No calculus, mass, or hydronephrosis. There is a 1.0 x 0.9 x 1.1 cm exophytic simple cyst in the interpolar region. LEFT KIDNEY: Measures 11.8cm. Normal echogenicity. No calculus, mass, or hydronephrosis. SPLEEN: Normal in size and contour. No mass. AORTA: No aneurysmal dilatation. IVC: Unremarkable. OTHER FINDINGS: None. IMPRESSION: Diffuse increased echogenicity in the liver may reflect hepatic steatosis however parenchymal infectious/ inflammatory etiologies cannot be entirely excluded. Clinical and laboratory correlation is advised. No cholelithiasis or biliary dilatation.
--- NOTE | 2017-11-21 11:35 | CARD ---
APPROVED REPORT EXAM: Two-dimensional and M-mode echocardiogram with Doppler and color Doppler. Other Information Quality : FairRhythm : INDICATION Chest Pain 2D DIMENSIONS IVSd1.70 (0.7-1.1cm)LVDd4.62 (3.9-5.9cm) PWd1.21 (0.7-1.1cm)IVSs1.95 (0.8-1.2cm) LVDs4.28 (2.5-4.0cm)FS (%) 7.5 % PWs1.11 (0.8-1.2cm)LVEF (%)20.0 (>50%) M-Mode DIMENSIONS Left Atrium (MM)4.37 (2.5-4.0cm)IVSd1.78 (0.7-1.1cm) Aortic Root3.13 (2.2-3.7cm)LVDd6.04 (4.0-5.6cm) Aortic Cusp Exc.1.78 (1.5-2.0cm)PWd0.78 (0.7-1.1cm) IVSs2.60 cmFS (%) 35 % LVDs3.95 (2.0-3.8cm)PWs1.49 cm LVEF (%)34 (>50%) Mitral Valve MV E Lisjwoog65.7cm/sMV E Peak Gr.44mmHgMV DECEL [id number] MV A Woysyfmq96.5cm/sMV VOC96esS/A ratio0.6 MVA (PHT)3.45cm2 TDI Lateral E' Peak V8.72cm/sE/Lateral E'4.9E/Medial E'0.0 LEFT VENTRICLE The left ventricle is normal in size on the 2D study. There is normal left ventricular wall thickness on the 2D study. The left ventricular function is - moderately impaired. The left ventricular wall motion appears to vary somewhat from one view to another and the endocardium could not be seen well in all views. In general, there is - moderate hypokinesia. Transmitral Doppler flow pattern is Grade I-abnormal relaxation pattern. No left ventricle thrombus noted on this study. There is no ventricular septal defect visualized. There is no left ventricular aneurysm. There is no mass noted in the left ventricle. RIGHT VENTRICLE The right ventricle is normal size. There is normal right ventricular wall thickness. The right ventricular systolic function is normal. ATRIA The left atrium size is normal. There is no thrombus suspected in the left atrium. The right atrium size is normal. The interatrial septum is intact with no evidence for an atrial septal defect. AORTIC VALVE The aortic valve is normal in structure. No aortic regurgitation is present. There is no aortic valvular stenosis. MITRAL VALVE The mitral valve is normal in structure. There is no evidence of mitral valve prolapse. There is no mitral valve stenosis. Mitral regurgitation is mild. TRICUSPID VALVE The tricuspid valve is normal in structure. There is mild tricuspid regurgitation. There is no tricuspid valve prolapse or vegetation. There is no tricuspid valve stenosis. PULMONIC VALVE The pulmonic valve is not well visualized. There is no pulmonic valvular regurgitation. GREAT VESSELS The aortic root is normal in size. The IVC was not well visualized. PERICARDIAL EFFUSION The pericardium appears normal. There is no pleural effusion. <Conclusion> The study is only of fair quality. The left ventricle is normal in size and wall thickness on the 2D study. The left ventricular function is - moderately impaired. The left atrium, right ventricle and right atrium are normal in size on the 2D study. The mitral, aortic and tricuspid valves are normal. There is mild mitral regurgitation and mild tricuspid regurgitation.
--- NOTE | 2017-11-21 11:57 | CARD ---
APPROVED REPORT Protocol: SAUL Test Type: Stress Nuclear Medications: Aspirin 81mg Lovenox 40mg Zofran 4mg Protonix 40mg Tramadol 50mg Neurontin 600mg Flexeril 10mg Medical History: COPD, chronic bronchitis, Herniorrhaphy, Right hand cellulitis, Elbow contusion, right open hand fx, Family history of heart disease, Target HR: 162 bpm Resting ECG: normal Resting Heart Rate: 97 bpm Resting Blood Pressure: 120/80mmHg submaximum (85%): 138 bpm TEST SUMMARY [id number]. [id number]. [id number]. [id number]/82.0. EXERCISESTAGE [id number]/84.0. EXERCISESTAGE 200:[id number]/84.0. [id number]/78.0. POST EXERCISE Reason for Termination: Target heart rate achieved Target HR: No Max HR: 144 bpm 90% of Maximum Predicted HR: 162 bpm Exercise duration: 03:55 min:sec, 2 Stage Exercise capacity: 5.7METs Max Blood Pressure: 178/82mmHg Blood Pressure response to exercise: normal resting BP - appropriate response Heart Rate response to exercise: appropriate Chest Pain: No, none Angina index: 0 Arrhythmia: No, none ST Change: No, none Deviation: 0 mm Stress EKG Interpretation 57 y/o male with chest pain Resting EKG: normal; BP: 120/80; HR: 97 BPM He exercised with Saul Protocol for 3:55mins attaining a HR: 144 BPM which is 90% of MPHR; his BP [place] to 178/82 with a workload of 5.7METs There was no chest pain or ST changes At peak exertion he was injected with 30 mCi Myoviw and stress imaging was taken 45 mins later EXAM: Myocardial Perfusion REST/STRESS Image QualityGood Imaging Protocol The imaging protocol used to acquire images was Rest Tc-99m/stress Tc-99m 1 day Rest Spect myocardial perfusion imaging was performed in supine position 30 minutes following the injection of 10 mCi of Tc-99 Myoview. Time of rest injection: 8:10 Time of rest imagin:45 At peak stress, the patient was injected intravenously with 30mCi of Tc-99 tetrofosmin after an infusion time of minutes and seconds. Time of stress injection: 10:50 Time of stress imagin:00 Gated Stress Spect was performed 70 minutes after intravenous Tc-99 Myoview injection. The images were gated to evaluate regional wall motion and calculate ventricular ejection fraction. LV Perfusion On Stress imaging there is decreased perfusion in the inferior wall with near total reperfusion on resting imaging Wall Motion Mild global hypokinesia with EF: 40 - 45% CONCLUSION 1. Abnormal Stress Myoview with Inferior wall ischemia
--- NOTE | 2017-11-21 18:38 | CP.PCM.PN ---
Subjective - Date & Time of Evaluation Date of Evaluation: 11/21/17 Time of Evaluation: 18:15 - Subjective Subjective: patient has less chest pain today Objective - Vital Signs/Intake and Output Vital Signs (last 24 hours): Temp Pulse Resp BP Pulse Ox 97.5 F L 77 20 128/76 96 11/21/17 15:44 11/21/17 15:44 11/21/17 15:44 11/21/17 15:44 11/21/17 15:44 - Medications Medications: Current Medications Acetaminophen (Tylenol 325mg Tab) 650 mg PO Q4 PRN PRN Reason: Pain, moderate (4-7) Last Admin: 11/20/17 21:22 Dose: 650 mg Aspirin (Ecotrin) 81 mg PO DAILY [facility] Last Admin: 11/21/17 09:24 Dose: 81 mg Enoxaparin Sodium (Lovenox) 40 mg SC DAILY [facility] PRN Reason: Protocol Last Admin: 11/21/17 09:24 Dose: 40 mg Sodium Chloride (Sodium Chloride 0.9%) 1,000 mls @ 50 mls/hr IV .Q20H [facility] Stop: 11/22/17 00:01 Isosorbide Mononitrate (Imdur Er) 30 mg PO DAILY [facility] Last Admin: 11/21/17 09:24 Dose: 30 mg Ondansetron HCl (Zofran Inj) 4 mg IVP Q6 PRN PRN Reason: Nausea/Vomiting Last Admin: 11/20/17 11:19 Dose: 4 mg Pantoprazole Sodium (Protonix Inj) 40 mg IVP DAILY [facility] Last Admin: 11/21/17 09:24 Dose: 40 mg - Labs Labs: 11/20/17 04:25 11/19/17 08:20 PT 12.1 Seconds (9.8-13.1) 11/19/17 17:32 INR 1.1 (0.9-1.2) 11/19/17 17:32 APTT 26.9 Seconds (25.6-37.1) 11/19/17 17:32 - Constitutional Appears: Non-toxic - Head Exam Head Exam: NORMAL INSPECTION - Eye Exam Eye Exam: Normal appearance - ENT Exam ENT Exam: Mucous Membranes Moist - Neck Exam Neck Exam: Full ROM - Respiratory Exam Respiratory Exam: NORMAL BREATHING PATTERN - Cardiovascular Exam Cardiovascular Exam: REGULAR RHYTHM - GI/Abdominal Exam GI & Abdominal Exam: Normal Bowel Sounds - Rectal Exam Rectal Exam: Deferred - Extremities Exam Extremities Exam: absent: Pedal Edema - Back Exam Back Exam: NORMAL INSPECTION - Neurological Exam Neurological Exam: Alert - Psychiatric Exam Psychiatric exam: Normal Affect - Skin Skin Exam: Normal Color Assessment and Plan (1) Chest pain Assessment & Plan: the stress test reveals inferior reversible ischemia (official report). Patient will require coronary angiography given symptoms cardiac catheterization scheduled Status: Acute
[2017-11-22] MEDS ORDERED: Sodium Chloride 0.9% 1,000 ML IV SCH
[2017-11-22] MEDS: Enoxaparin 40 mg Syringe SC SCH (09:13)
--- NOTE | 2017-11-22 09:25 | CP.PCM.PN ---
Subjective - Date & Time of Evaluation Date of Evaluation: 11/22/17 Time of Evaluation: 09:26 - Subjective Subjective: FEELS BETTER LESS CHEST/ABDOMINAL PAIN NO NAUSEA/VOMITING RESULTS OF MYOVIEW AND ABD SONOGRAM NOTED Objective - Vital Signs/Intake and Output Vital Signs (last 24 hours): Temp Pulse Resp BP Pulse Ox 97.8 F 85 20 138/78 96 11/22/17 08:47 11/22/17 08:47 11/22/17 08:47 11/22/17 08:47 11/22/17 08:47 - Medications Medications: Current Medications Acetaminophen (Tylenol 325mg Tab) 650 mg PO Q4 PRN PRN Reason: Pain, moderate (4-7) Last Admin: 11/20/17 21:22 Dose: 650 mg Aspirin (Ecotrin) 81 mg PO DAILY [facility] Last Admin: 11/22/17 09:13 Dose: Not Given Enoxaparin Sodium (Lovenox) 40 mg SC DAILY [facility] PRN Reason: Protocol Last Admin: 11/22/17 09:13 Dose: Not Given Isosorbide Mononitrate (Imdur Er) 30 mg PO DAILY [facility] Last Admin: 11/22/17 09:13 Dose: Not Given Ondansetron HCl (Zofran Inj) 4 mg IVP Q6 PRN PRN Reason: Nausea/Vomiting Last Admin: 11/20/17 11:19 Dose: 4 mg Pantoprazole Sodium (Protonix Inj) 40 mg IVP DAILY [facility] Last Admin: 11/22/17 09:14 Dose: 40 mg - Labs Labs: 11/20/17 04:25 11/19/17 08:20 PT 12.1 Seconds (9.8-13.1) 11/19/17 17:32 INR 1.1 (0.9-1.2) 11/19/17 17:32 APTT 26.9 Seconds (25.6-37.1) 11/19/17 17:32 - Constitutional Appears: No Acute Distress - Head Exam Head Exam: ATRAUMATIC, NORMAL INSPECTION, NORMOCEPHALIC - Eye Exam Eye Exam: EOMI, Normal appearance, PERRL Pupil Exam: NORMAL ACCOMODATION, PERRL - ENT Exam ENT Exam: Mucous Membranes Moist, Normal Exam - Neck Exam Neck Exam: Full ROM, Normal Inspection. absent: Lymphadenopathy - Respiratory Exam Respiratory Exam: Clear to Ausculation Bilateral, NORMAL BREATHING PATTERN - Cardiovascular Exam Cardiovascular Exam: REGULAR RHYTHM, +S1, +S2. absent: Murmur - GI/Abdominal Exam GI & Abdominal Exam: Soft, Normal Bowel Sounds. absent: Tenderness - Rectal Exam Rectal Exam: NORMAL INSPECTION - Extremities Exam Extremities Exam: Full ROM, Normal Capillary Refill, Normal Inspection. absent : Joint Swelling, Pedal Edema - Back Exam Back Exam: NORMAL INSPECTION - Neurological Exam Neurological Exam: Alert, Awake, CN II-XII Intact, Normal Gait, Oriented x3 - Psychiatric Exam Psychiatric exam: Normal Affect, Normal Mood - Skin Skin Exam: Dry, Intact, Normal Color, Warm Assessment and Plan - Assessment and Plan (Free Text) Assessment: CHEST PAIN ABNORMAL MYOVIEW SCAN ABDOMINAL PAIN Plan: SCHEDULED FOR CARDIAC CATH TODAY
[2017-11-23] MEDS: Enoxaparin 40 mg Syringe SC SCH (09:35)
--- NOTE | 2017-11-23 13:09 | CP.PCM.PN ---
Subjective - Date & Time of Evaluation Date of Evaluation: 11/23/17 Time of Evaluation: 13:09 - Subjective Subjective: FEELS WEAK C/O NAUSEA WITH HEADACHES AND GENERALIZED MALAISE DOES NOT WANT TO BE DISCHARGED TODAY Objective - Vital Signs/Intake and Output Vital Signs (last 24 hours): Temp Pulse Resp BP Pulse Ox 97.5 F L 78 18 112/71 95 11/23/17 12:00 11/23/17 12:00 11/23/17 12:00 11/23/17 12:00 11/23/17 12:00 - Medications Medications: Current Medications Acetaminophen (Tylenol 325mg Tab) 650 mg PO Q4 PRN PRN Reason: Pain, moderate (4-7) Last Admin: 11/23/17 09:39 Dose: 650 mg Aspirin (Ecotrin) 81 mg PO DAILY [facility] Last Admin: 11/23/17 09:35 Dose: 81 mg Enoxaparin Sodium (Lovenox) 40 mg SC DAILY [facility] PRN Reason: Protocol Dextrose/Sodium Chloride (Dextrose 5%/0.45% Ns 1000 Ml) 1,000 mls @ 80 mls/hr IV .[id number] [facility] Stop: 11/24/17 13:06 Isosorbide Mononitrate (Imdur Er) 30 mg PO DAILY [facility] Last Admin: 11/23/17 09:35 Dose: 30 mg Ondansetron HCl (Zofran Inj) 4 mg IVP Q6 PRN PRN Reason: Nausea/Vomiting Last Admin: 11/20/17 11:19 Dose: 4 mg Pantoprazole Sodium (Protonix Inj) 40 mg IVP DAILY [facility] Last Admin: 11/23/17 09:36 Dose: 40 mg - Labs Labs: 11/20/17 04:25 11/19/17 08:20 PT 12.1 Seconds (9.8-13.1) 11/19/17 17:32 INR 1.1 (0.9-1.2) 11/19/17 17:32 APTT 26.9 Seconds (25.6-37.1) 11/19/17 17:32 - Constitutional Appears: In Acute Distress - Head Exam Head Exam: ATRAUMATIC, NORMAL INSPECTION, NORMOCEPHALIC - Eye Exam Eye Exam: EOMI, Normal appearance, PERRL Pupil Exam: NORMAL ACCOMODATION, PERRL - ENT Exam ENT Exam: Mucous Membranes Moist, Normal Exam - Neck Exam Neck Exam: Full ROM, Normal Inspection. absent: Lymphadenopathy - Respiratory Exam Respiratory Exam: Clear to Ausculation Bilateral, NORMAL BREATHING PATTERN - Cardiovascular Exam Cardiovascular Exam: REGULAR RHYTHM, +S1, +S2. absent: Murmur - GI/Abdominal Exam GI & Abdominal Exam: Soft, Normal Bowel Sounds. absent: Tenderness - Rectal Exam Rectal Exam: NORMAL INSPECTION - Extremities Exam Extremities Exam: Full ROM, Normal Capillary Refill, Normal Inspection. absent : Joint Swelling, Pedal Edema - Back Exam Back Exam: NORMAL INSPECTION - Neurological Exam Neurological Exam: Alert, Awake, CN II-XII Intact, Normal Gait, Oriented x3 - Psychiatric Exam Psychiatric exam: Normal Affect, Normal Mood - Skin Skin Exam: Dry, Intact, Normal Color, Warm Assessment and Plan - Assessment and Plan (Free Text) Assessment: CHEST PAIN GASTRITIS GENERAL DEBILITY WITH DECONDITIONING Plan: [employer] FOR TRANSFER TO TCU IV HYDRATION
[2017-11-23] MEDS: Dextrose 5%/0.45% NS 1,000 ML IV SCH (13:47)
[2017-11-23 14:13] LABS: HEMOGLOBIN 14.8 g/dL (12.0-18.0); MEAN CELL VOLUME 90.8 fl (80.0-94.0); MEAN CORPUSCULAR HEMOGLOBIN 30.2 pg (27.0-31.0); MEAN CORPUSCULAR HGB CONC 33.3 g/dL (33.0-37.0); RBC 4.9 Mil/uL (4.40-5.90); RED CELL DISTRIBUTION WIDTH 12.8 % (11.5-14.5); WHITE BLOOD COUNT 8.1 K/uL (4.8-10.8)
[2017-11-23] MEDS: Apap-Butalbital-Caffeine 325-50-40mg Tab PO SCH ×3 (14:35→22:29)
[2017-11-23 14:38] LABS: BLOOD UREA NITROGEN 14 mg/dl (9-20); CALCIUM 9.1 mg/dL (8.4-10.2); GFR AFRICAN-AMERICAN > 60; GFR NON-AFRICAN AMERICAN > 60
[2017-11-24] MEDS: Apap-Butalbital-Caffeine 325-50-40mg Tab PO SCH ×4 (01:30→14:02)
[2017-11-24] MEDS: Dextrose 5%/0.45% NS 1,000 ML IV SCH (02:00)
[2017-11-24] MEDS ORDERED: Enoxaparin 40 mg Syringe SC SCH (09:00)
[2017-11-24] MEDS ORDERED: Naphazoline/Pheniramine Opht SOLN OU PRN (09:22)
--- NOTE | 2017-11-24 09:27 | CP.PCM.PN ---
Subjective - Date & Time of Evaluation Date of Evaluation: 11/24/17 Time of Evaluation: 09:29 - Subjective Subjective: STILL FEELS ILL BUT BETTER THAN YESTERDAY HEADACHES AND DIZZINESS LESS C/O BURNING EYES Objective - Vital Signs/Intake and Output Vital Signs (last 24 hours): Temp Pulse Resp BP Pulse Ox 97.6 F 81 20 114/75 97 11/24/17 07:50 11/24/17 07:50 11/24/17 07:50 11/24/17 07:50 11/24/17 07:50 Intake and Output: 11/24/17 11/24/17 06:59 18:59 Intake Total 1260 Output Total 800 Balance 460 - Medications Medications: Current Medications Acetaminophen (Tylenol 325mg Tab) 650 mg PO Q4 PRN PRN Reason: Pain, moderate (4-7) Last Admin: 11/23/17 09:39 Dose: 650 mg Acetaminophen/Butalbital/Caffeine (Fioricet) 1 tab PO Q4 ON LICENSE OF [facility] Last Admin: 11/24/17 08:18 Dose: 1 tab Aspirin (Ecotrin) 81 mg PO DAILY ON LICENSE OF [facility] Last Admin: 11/24/17 08:19 Dose: 81 mg Enoxaparin Sodium (Lovenox) 40 mg SC DAILY ON LICENSE OF [facility] PRN Reason: Protocol Last Admin: 11/24/17 08:20 Dose: 40 mg Dextrose/Sodium Chloride (Dextrose 5%/0.45% Ns 1000 Ml) 1,000 mls @ 80 mls/hr IV .[id number] ON LICENSE OF [facility] Stop: 11/24/17 13:06 Last Admin: 11/24/17 02:00 Dose: 80 mls/hr Isosorbide Mononitrate (Imdur Er) 30 mg PO DAILY ON LICENSE OF [facility] Last Admin: 11/24/17 08:19 Dose: 30 mg Naphazoline HCl/Pheniramine Maleate (Naphcon-A Opht) 1 drop OU QID PRN PRN Reason: Dry eyes Ondansetron HCl (Zofran Inj) 4 mg IVP Q6 PRN PRN Reason: Nausea/Vomiting Last Admin: 11/20/17 11:19 Dose: 4 mg Pantoprazole Sodium (Protonix Inj) 40 mg IVP DAILY ON LICENSE OF [facility] Last Admin: 11/24/17 08:19 Dose: 40 mg - Labs Labs: 11/23/17 14:00 11/23/17 14:00 PT 12.1 Seconds (9.8-13.1) 11/19/17 17:32 INR 1.1 (0.9-1.2) 11/19/17 17:32 APTT 26.9 Seconds (25.6-37.1) 11/19/17 17:32 - Constitutional Appears: No Acute Distress - Head Exam Head Exam: ATRAUMATIC, NORMAL INSPECTION, NORMOCEPHALIC - Eye Exam Eye Exam: EOMI, Normal appearance, PERRL Pupil Exam: NORMAL ACCOMODATION, PERRL - ENT Exam ENT Exam: Mucous Membranes Moist, Normal Exam - Neck Exam Neck Exam: Full ROM, Normal Inspection. absent: Lymphadenopathy - Respiratory Exam Respiratory Exam: Clear to Ausculation Bilateral, NORMAL BREATHING PATTERN - Cardiovascular Exam Cardiovascular Exam: REGULAR RHYTHM, +S1, +S2. absent: Murmur - GI/Abdominal Exam GI & Abdominal Exam: Soft, Normal Bowel Sounds. absent: Tenderness - Rectal Exam Rectal Exam: NORMAL INSPECTION - Extremities Exam Extremities Exam: Full ROM, Normal Capillary Refill, Normal Inspection. absent : Joint Swelling, Pedal Edema - Back Exam Back Exam: NORMAL INSPECTION - Neurological Exam Neurological Exam: Alert, Awake, CN II-XII Intact, Normal Gait, Oriented x3 - Psychiatric Exam Psychiatric exam: Normal Affect, Normal Mood - Skin Skin Exam: Dry, Intact, Normal Color, Warm Assessment and Plan - Assessment and Plan (Free Text) Assessment: CHEST PAIN-RESOLVED UNREMARKABLE CARDIAC CATH EYE IRRITATION DIARRHEA AND ABDOMINAL PAIN RESOLVED HEADACHES AND DIZZINESS Plan: CT SCAN OF BRAIN TODAY EYE DROPS D/C HOME TODAY AND CONTINUE OUT PT WORKUP IF CT SCAN IS NON-REVEALING
--- NOTE | 2017-11-24 11:41 | CT ---
PROCEDURE: CT HEAD WITHOUT CONTRAST. HISTORY: headaches and dizziness COMPARISON: None available. TECHNIQUE: Axial computed tomography images were obtained through the head/brain without intravenous contrast. Radiation dose: Total exam DLP = 767 mGy-cm. This CT exam was performed using one or more of the following dose reduction techniques: Automated exposure control, adjustment of the mA and/or kV according to patient size, and/or use of iterative reconstruction technique. FINDINGS: HEMORRHAGE: No intracranial hemorrhage. BRAIN: No mass effect or edema. No atrophy or chronic microvascular ischemic changes. VENTRICLES: Unremarkable. No hydrocephalus. Patent cavum septum pellucidum. CALVARIUM: Unremarkable. PARANASAL SINUSES: Unremarkable as visualized. No significant inflammatory changes. MASTOID AIR CELLS: Unremarkable as visualized. No inflammatory changes. OTHER FINDINGS: None. IMPRESSION: No acute intracranial pathology.
[2017-11-24 15:50] VITALS: PULSE 88; RESP 18; TEMP 97.6
[2017-11-24 16:16] VITALS: BP 130/81; O2SAT 98
--- NOTE | 2017-12-01 11:16 | CP.PCM.DIS ---
Provider - Provider Date of Admission: 11/20/17 14:57 Attending physician: Jose Guadalupe Hassan MD Time Spent in preparation of Discharge (in minutes): 30 Diagnosis - Discharge Diagnosis (1) Headache Status: Acute (2) Diarrhea Status: Acute (3) Chest pain Status: Acute Hospital Course - Lab Results Lab Results: Micro Results 11/21/17 14:21 Stool Stool Culture - Final NO SALMONELLA, SHIGELLA OR CAMPYLOBACTER ISOLATED. Most Recent Lab Values WBC 8.1 K/uL (4.8-10.8) 11/23/17 14:00 RBC 4.90 Mil/uL (4.40-5.90) 11/23/17 14:00 Hgb 14.8 g/dL (12.0-18.0) 11/23/17 14:00 Hct 44.5 % (35.0-51.0) 11/23/17 14:00 MCV 90.8 fl (80.0-94.0) 11/23/17 14:00 MCH 30.2 pg (27.0-31.0) 11/23/17 14:00 MCHC 33.3 g/dL (33.0-37.0) 11/23/17 14:00 RDW 12.8 % (11.5-14.5) 11/23/17 14:00 Plt Count 312 K/uL (130-400) 11/23/17 14:00 MPV 8.4 fl (7.2-11.7) 11/19/17 08:20 Neut % (Auto) 87.4 % (50.0-75.0) H 11/19/17 08:20 Lymph % (Auto) 4.3 % (20.0-40.0) L 11/19/17 08:20 [place] % (Auto) 7.6 % (0.0-10.0) 11/19/17 08:20 Eos % (Auto) 0.4 % (0.0-4.0) 11/19/17 08:20 Baso % (Auto) 0.3 % (0.0-2.0) 11/19/17 08:20 Neut # 11.7 K/uL (1.8-7.0) H 11/19/17 08:20 Lymph # 0.6 K/uL (1.0-4.3) L 11/19/17 08:20 [place] # 1.0 K/uL (0.0-0.8) H 11/19/17 08:20 Eos # 0.1 K/uL (0.0-0.7) 11/19/17 08:20 Baso # 0.0 K/uL (0.0-0.2) 11/19/17 08:20 Neutrophils % (Manual) 90 % (42-75) H 11/19/17 08:20 Lymphocytes % (Manual) 3 % (20-50) L 11/19/17 08:20 Monocytes % (Manual) 7 % (0-10) 11/19/17 08:20 Platelet Estimate Normal (NORMAL) 11/19/17 08:20 RBC Morphology Normal (NORMAL) 11/19/17 08:20 PT 12.1 Seconds (9.8-13.1) 11/19/17 17:32 INR 1.1 (0.9-1.2) 11/19/17 17:32 APTT 26.9 Seconds (25.6-37.1) 11/19/17 17:32 D-Dimer, Quantitative 523 ng/mlDDU (0-230) H 11/19/17 17:32 Sodium 137 mmol/l (132-148) 11/23/17 14:00 Potassium 3.7 MMOL/L (3.6-5.0) 11/23/17 14:00 Chloride 102 mmol/L (98-107) 11/23/17 14:00 Carbon Dioxide 22 mmol/L (22-30) 11/23/17 14:00 Anion Gap 17 (10-20) 11/23/17 14:00 BUN 14 mg/dl (9-20) 11/23/17 14:00 Creatinine 0.8 mg/dl (0.8-1.5) 11/23/17 14:00 Est GFR ( Amer) > 60 11/23/17 14:00 Est GFR (Non-Af Amer) > 60 11/23/17 14:00 Random Glucose 158 mg/dL (75-110) H 11/23/17 14:00 Calcium 9.1 mg/dL (8.4-10.2) 11/23/17 14:00 Total Bilirubin 1.3 mg/dl (0.2-1.3) 11/19/17 08:20 AST 27 U/L (17-59) 11/19/17 08:20 ALT 57 U/L (21-72) 11/19/17 08:20 Alkaline Phosphatase 78 U/L (38-126) 11/19/17 08:20 Troponin I < 0.0120 ng/mL (0.00-0.120) 11/19/17 22:00 Total Protein 8.6 G/DL (6.3-8.2) H 11/19/17 08:20 Albumin 4.9 g/dL (3.5-5.0) 11/19/17 08:20 Globulin 3.7 gm/dL (2.2-3.9) 11/19/17 08:20 Albumin/Globulin Ratio 1.3 (1.0-2.1) 11/19/17 08:20 - Hospital Course Hospital Course: clinically improved all workup non-revealing Discharge Exam - Head Exam Head Exam: ATRAUMATIC, NORMAL INSPECTION, NORMOCEPHALIC - Eye Exam Eye Exam: EOMI, Normal appearance, PERRL Pupil Exam: NORMAL ACCOMODATION, PERRL - GI/Abdominal Exam GI & Abdominal Exam: Normal Bowel Sounds - Rectal Exam Rectal Exam: NORMAL INSPECTION - Neurological Exam Neurological exam: Alert, CN II-XII Intact, Normal Gait, Oriented x3, Reflexes Normal - Psychiatric Exam Psychiatric exam: Normal Affect, Normal Mood - Skin Skin Exam: Dry, Intact, Normal Color, Warm Discharge Plan - Discharge Medications Prescriptions: Aspirin [Aspirin Chewable] 81 mg PO DAILY 30 Days #30 ctb - Follow Up Plan Condition: FAIR Disposition: HOME/ ROUTINE Patient education suggested?: Yes Instructions: Chest Pain (DC) Additional Instructions: Activity as tolerated. Pls refer to cardiac catheterization discharge instruction handout .Heart healthy low fat, low cholesterol diet.Follow -up with Dr Hassan Sunday. Referrals: Jose Guadalupe Hassan MD [Family Provider] - Shonna Carcamo MD [Staff Provider] -
== END 2017-11-24 16:20 | disposition home or self-care (01) | DRG 287 ==
LOC: H.ER 06:50 → H.ERHOLD 10:19 → H.TEL 14:16 → OBSVTOIN 11-20 14:57
PROVIDERS: ADMIT Internal Medicine Pulmonary Disease; ATTEND Internal Medicine Pulmonary Disease
PROC: 4A023N7 Measurement of Cardiac Sampling and Pressure, Left Heart, Percutaneous Approach (ICD-10-PCS; principal; 2017-11-22)
PROC: B211YZZ Fluoroscopy of Multiple Coronary Arteries using Other Contrast (ICD-10-PCS; 2017-11-22)
PROC: B215YZZ Fluoroscopy of Left Heart using Other Contrast (ICD-10-PCS; 2017-11-22)
DX: I25.110 Atherosclerotic heart disease of native coronary artery with unstable angina pectoris (principal); E78.00 Pure hypercholesterolemia, unspecified; I10 Essential (primary) hypertension; J44.9 Chronic obstructive pulmonary disease, unspecified; K29.70 Gastritis, unspecified, without bleeding; R19.7 Diarrhea, unspecified; R51 Headache; Z77.22 Contact with and (suspected) exposure to environmental tobacco smoke (acute) (chronic); Z82.49 Family history of ischemic heart disease and other diseases of the circulatory system

== ENCOUNTER 2018-03-22 08:42 | Day surgery (SDC) | payer BC ==
[2018-03-22 09:40] VITALS: RESP 18
[2018-03-22 09:54] VITALS: BMI 29.5
[2018-03-22] MEDS ORDERED: methylPREDNISolone Depo 80 mg/ml Inj ONE (10:47)
[2018-03-22] MEDS ORDERED: Midazolam 2 MG/2 ML VIAL ONE (10:47)
[2018-03-22] MEDS ORDERED: Lactated Ringer's 1,000 ML IV ONE (11:00)
[2018-03-22] MEDS ORDERED: Lidocaine 1% Inj (20ml) IJ ONE (11:00)
[2018-03-22] MEDS ORDERED: Bupivacaine 0.5% Inj(30mL) IJ ONE (11:23)
[2018-03-22] MEDS ORDERED: Lactated Ringer's 1,000 ML IV SCH (11:30)
[2018-03-22 12:50] VITALS: BP 138/84; PULSE 100; TEMP 98.3; O2SAT 95
--- NOTE | 2018-03-22 14:09 | RAD ---
PROCEDURE: Intraoperative Fluoroscopy. HISTORY: PAIN MANAGEMENT FINDINGS: Fluoroscopic assistance was provided. 31.6 seconds fluoroscopy time utilized during this exam. Please refer to the operative report from OSVALDO Hunter.
--- NOTE | 2018-03-22 22:20 | OP ---
PROCEDURE DATE: 03/22/2018 PREOPERATIVE DIAGNOSIS: Lumbar facet syndrome. POSTOPERATIVE DIAGNOSIS: Lumbar facet syndrome. PROCEDURE: Bilateral L3, L4, and L5 medial branch nerve block. SURGEON: Taya Calderón MD TYPE OF ANESTHESIA: Monitored anesthesia care. ANESTHESIA ADMINISTERED BY: Abner Neumann MD COMPLICATIONS: None. SPECIMEN: None. DESCRIPTION OF PROCEDURE: After we had a discussion of the procedure with the patient including its risks, benefits, alternative, outcome data, possibility of no effect or increased pain, the patient consented to the procedure. He denies any recent infections, bleeding tendencies or being on anticoagulants, and the decision was then made to proceed to the OR. The patient was placed on the fluoroscopy table in a prone position with 2 pillows underneath his abdomen. The back was prepped and draped in usual sterile fashion and sterile technique was adhered during the entire procedure. The L3, L4, and L5 medial branch nerves are located at the intersection of the superior articular process and transverse process of the left L4-L5 pedicle along with the sacral ala. The above three target areas were visualized on the right side by turning the fluoroscopy towards the right at approximately 15 degrees. The skin overlying the three above targeted areas was then infiltrated with 1% lidocaine using 25-gauge needle. Subsequently, a 22-gauge 3.5-inch spinal needle was then incrementally advanced under fluoroscopic guidance until tip of the needle made bony contact with all three target areas. After satisfactory positioning of all three needles, approximately 0.5 mL of Isovue contrast was injected to rule out intravenous uptake. At this point, approximately 3 mL of 0.5% Marcaine and Depo-Medrol mixture was injected. The needle was then removed and the same exact procedure was performed on the contralateral left side using the same medications and techniques. At the end of the case, the patient's back was cleaned and dried and bandages were applied. The patient was then transferred to recovery area in good condition without any signs of ORTHOPEDIC RADIOLOGIC TECHNOLOGIST toxicity or any neurological deficits. He will follow up in our office in approximately 2 to 4 weeks. Taya Calderón MD
== END 2018-03-22 12:52 | disposition home or self-care (01) ==
LOC: H.OPSURG 08:42
PROVIDERS: ATTEND Anesthesiology
DX: M51.26 Other intervertebral disc displacement, lumbar region (principal)
CPT/HCPCS: 64520; J1040; J2250; J3010; J7120

== ENCOUNTER 2018-06-03 06:01 | Inpatient (IN) | payer BC ==
[2018-05-30 16:30] VITALS: BMI 27.5
[2018-06-03] MEDS ORDERED: ceFAZolin IV 2 gm in Dextrose 2 GM/50 ML BAG IVPB ONE (07:18)
[2018-06-03] MEDS ORDERED: Bupivacaine HCl 0.25% PF (30 ml) Inj ONE (07:18)
[2018-06-03] MEDS ORDERED: Thrombin Topical 5,000 Int Units Spray Kit ONE ×2 (07:18→09:19)
[2018-06-03] MEDS ORDERED: GELATIN SPONGE,ABSORB/PORCINE 1 EACH SPONGE TP ONE (07:18)
--- NOTE | 2018-06-03 07:50 | CP.PCM.CON ---
History of Present Illness - History of Present Illness History of Present Illness: Orthopedic H&P Patient is a 58 y/o male with PMH of HTN, CAD, COPD, hypercholesterolemia who presents for elective right total knee arthroplasty. He has had right knee pain which has been progressive for many years which has limited his daily activities for the last few months. He now has difficulties working as a [employer], walking, climbing stairs and bending due to the pain. He has tried and failed with conservative management with oral medications and physical therapy. He also has a history of bilateral knee arthroscopies. Currently the pain is mild, dull and aching in quality and intermittent. The pain worsens with activity and alleviates with rest. He denies radiation of pain, numbness and tingling. He also denies CP/SOB/N/V/D/fever/dysuria/melena. Review of Systems - Review of Systems All systems: reviewed and no additional remarkable complaints except Review of Systems: as per HPI Past Patient History - Past Medical History & Family History Past Medical History?: Yes Past Family History: Reviewed and not pertinent - Past Social History Smoking Status: Never Smoked Alcohol: None Drugs: Denies - CARDIAC Hx Cardiac Disorders: Yes Hx Hypercholesterolemia: Yes Hx Hypertension: Yes - PULMONARY Hx Respiratory Disorders: Yes Hx Chronic Obstructive Pulmonary Disease (COPD): Yes - NEUROLOGICAL Hx Neurological Disorder: No - HEENT Hx HEENT Problems: No - RENAL Hx Chronic Kidney Disease: No - ENDOCRINE/METABOLIC Hx Endocrine Disorders: No - HEMATOLOGICAL/ONCOLOGICAL Hx Blood Disorders: No Hx AIDS: No Hx Blood Transfusions: No Hx Human Immunodeficiency Virus (HIV): No - INTEGUMENTARY Hx Dermatological Problems: No - MUSCULOSKELETAL/RHEUMATOLOGICAL Hx Musculoskeletal Disorders: Yes (back pain) Hx Arthritis: Yes (back) Hx Back Pain: Yes Hx Falls: No Hx Fractures: Yes - GASTROINTESTINAL Hx Gastrointestinal Disorders: Yes Hx Gastritis: Yes (HEARTBURN) Hx Ulcer: Yes - GENITOURINARY/GYNECOLOGICAL Hx Genitourinary Disorders: No - PSYCHIATRIC Hx Psychophysiologic Disorder: No Hx Emotional Abuse: No Hx Physical Abuse: No Hx Substance Use: No - SURGICAL HISTORY Hx Surgeries: Yes Hx Angioplasty: Yes (nov 22) Hx Arthroscopy: Yes (BILATERAL KNEES arthroscopies) Hx Cardiac Catheterization: Yes Hx Herniorrhaphy: Yes (40+ years ago right inguinal) Hx Orthopedic Surgery: Yes (right hand fifth metacarpal ORIF) - ANESTHESIA Hx Anesthesia: Yes Hx Anesthesia Reactions: No Hx Malignant Hyperthermia: No Has any member of the family had a problem w/ anesthesia?: No Meds Allergies/Adverse Reactions: Allergies Allergy/AdvReac Type Severity Reaction Status Date / Time No Known Allergies Allergy Verified 06/03/18 06:27 - Medications Medications: as per Med rec Physical Exam - Constitutional Appears: Well, No Acute Distress - Head Exam Head Exam: ATRAUMATIC, NORMOCEPHALIC - Eye Exam Eye Exam: EOMI, Normal appearance, PERRL - ENT Exam ENT Exam: Mucous Membranes Moist, Normal Exam - Respiratory Exam Respiratory Exam: Clear to Auscultation Bilateral, NORMAL BREATHING PATTERN - Cardiovascular Exam Cardiovascular Exam: REGULAR RHYTHM - GI/Abdominal Exam GI & Abdominal Exam: Normal Bowel Sounds, Soft - Extremities Exam Additional comments: Right knee: mild swelling, medial tenderness, no lesions sensation intact SP/DP/TN motor intact EHL/FHL/TA/G/Q/HS pedal pulse intact comps soft NT Left knee:no swelling, no tenderness sensation intact SP/DP/TN motor intact EHL/FHL/TA/G/Q/HS pedal pulse intact comps soft NT - Neurological Exam Neurological exam: Alert, Oriented x3 - Psychiatric Exam Psychiatric exam: Normal Affect, Normal Mood - Skin Skin Exam: Normal Color, Warm Results - Labs Labs: Laboratory Results - last 24 hr 06/03/18 07:09 BBK History Checked Patient has bt Assessment & Plan (1) Osteoarthritis of right knee Assessment and Plan: -OR today for elective right TKA -Admit to Dr. Hassan -Medical clearance obtained -Pros/Cons/risks/benefits of procedure were explained to patient in detail. He expresses understanding and agrees to proceed with above procedure -above d/w Dr. Plasencia in agreement Status: Acute
[2018-06-03] MEDS ORDERED: Lactated Ringer's 1,000 ML IV ONE ×2 (08:00→11:06)
[2018-06-03] MEDS ORDERED: Midazolam 2 MG/2 ML VIAL ONE (08:29)
[2018-06-03] MEDS ORDERED: Propofol 10 mg/ml Inj (20 ML) ONE (08:29)
[2018-06-03] MEDS ORDERED: Succinylcholine 200 mg/10 ml Inj IV ONE (08:29)
[2018-06-03] MEDS ORDERED: Phenylephrine 10 mg/ml Inj ONE (08:30)
[2018-06-03] MEDS ORDERED: Lidocaine 4% (Laryng-O-Jet) Kit MM ONE (08:30)
[2018-06-03] MEDS ORDERED: Neostigmine 1:1000 (1 mg/ml) Inj ONE (08:30)
[2018-06-03] MEDS ORDERED: Lidocaine 1% 5ml Abboject IV ONE (08:30)
[2018-06-03] MEDS ORDERED: Rocuronium 10 mg/ml (5 ml) ONE ×2 (08:30→09:59)
[2018-06-03] MEDS ORDERED: Ropivacaine 0.5% 30ML IV ONE (08:59)
[2018-06-03] MEDS ORDERED: Bacitracin Ointment 30 GM TUBE ONE (09:18)
[2018-06-03] MEDS ORDERED: Absorbable Gelatin Sponge Size 12-7 ONE (09:19)
[2018-06-03] MEDS ORDERED: Tranexamic Acid 1,000 MG in Sodium Chloride 0.9% 100 ML IVPB ONE ×2 (09:22→09:30)
[2018-06-03] MEDS ORDERED: oxyCODONE 10 mg Immediate Release Tab PO PRN (09:34)
[2018-06-03 10:47] LABS: FLUID TYPE SYNOVIAL FLUID
[2018-06-03 12:08] LABS: SF GROSS APPEARANCE BLOODY (CLEAR); SYNOVIAL FLUID COMMENT TURBID; SYNOVIAL FLUID MONO/MACROPHAGE 5 % (0-0)
--- NOTE | 2018-06-03 12:44 | PCM.ANESB3 ---
Femoral Nerve Block - Femoral Nerve Block Date of Procedure: 06/03/18 Anesthesiologist: Dr. Langley Pre-Procedure Diagnosis: Right TKR Post-Procedure Diagnosis: Right TKR Procedure Performed: Femoral Nerve Block Right - Procedure Femoral Nerve Block: The procedure was explained to the patient that it is for the post-operative pain management. Consent was obtained after a thorough discussion with the patient regarding the benefits and possible complications of local anesthetic block of the femoral nerve at the inguinal crease area. The patient was brought to the operating room and standard monitors were applied. Time-out was held with the circulating nurse to confirm the correct surgery and the appropriate block. After applying oxygen by mask and administering general anesthesia, patient was placed in supine position with fully extended lower extremities and the right groin exposed. The femoral artery was then carefully palpated. The ultrasound transducer was then applied to this area in the transverse plane and the femoral nerve was visualized lateral to the femoral artery and underneath the fascia iliaca. After thorough identification, the inguinal crease area was prepped with Chloraprep solution. At this point, a #21 gauge Stimuplex 4-inch needle was inserted immediately lateral to the femoral artery pulse at the inguinal crease and advanced perpendicularly. The needle was inserted to the ultrasound transducer in-plane towards the femoral nerve in a [id number] direction. Needle advancement was performed carefully under direct ultrasound visualization. Nerve stimulator was used and twitch of the quadriceps muscle was obtained at current of 0.3MA. After negative aspiration, 2cc of 0.5% Ropivacaine was injected and this was followed with 18cc of 0.5% Ropivacaine. Under ultrasound guidance the local anesthetics were observed spreading below fascia iliaca and around the femoral nerve. The needle was removed intact and sterile dressing was applied. The patient had stable vital signs, was conscious and in no apparent distress. The patient tolerated the femoral nerve block well with stable vital signs and was prepared for subsequent surgery.
[2018-06-03] MEDS ORDERED: Lactated Ringer's 1,000 ML IV SCH (12:45)
--- NOTE | 2018-06-03 12:46 | PCM.ANESB2 ---
Popliteal Nerve Block - Popliteal Nerve Block Date of Procedure: 06/03/18 Anesthesiologist: Dr. Langley Pre-Procedure Diagnosis: Right TKR Post-Procedure Diagnosis: Right TKR Procedure Performed: Popliteal Nerve Block Right - Procedure Popliteal Nerve Block: This procedure was explained to the patient that it is for post-operative pain management. Consent was obtained after a thorough discussion with the patient regarding the benefits and possible complications of local anesthetic block of the sciatic nerve at the popliteal level. The patient was brought to the operating room and standard monitors are applied. Time-out was held with the circulating nurse to confirm the correct surgery and the appropriate block. After applying oxygen by mask and administering general anesthesia, patient's operative leg was gently raised and supported and the groove in between the biceps femoris and vastus lateralis muscles was carefully palpated. The skin approximately 8cm above the popliteal crease was then marked. The ultrasound transducer was then applied to the posterior thigh approximately 8cm above the popliteal crease in the transverse plane and the sciatic nerve before its division was visualized lateral to the popliteal artery and in between the bicep femoris and semimembranosus/semitendinosus muscles. After identification, the lateral portion of the thigh was prepped with Chloraprep solution. At this point, a # 21 gauge Stimuplex insulated 4 inch needle was inserted into pre-marked area and advanced in a perpendicular direction. The needle was inserted above the ultrasound transducer in-plane towards the sciatic nerve in a [id number] direction. Needle advancement was performed carefully under direct ultrasound visualization. Nerve stimulator was used and dorsiflexion of the right foot was elicited at a current of 0.3 MA. After repeated negative aspiration, 2cc of 0.5% Ropivacaine was injected and this was flowed with 18cc of 0.5% Ropivacaine. Under ultrasound guidance the local anesthetics were observed surrounding sciatic nerve . The needle was removed intact and sterile dressing was applied. The patient tolerated the popliteal nerve block well with stable vital signs and was subsequently prepared for the surgery.
--- NOTE | 2018-06-03 12:46 | PCM.SURG1 ---
Surgeon's Initial Post Op Note - Surgeon's Notes Surgeon: Erinn Coremaker Supervisor: HEATHER Felix Type of Anesthesia: General Endo, Block Regional Anesthesia Administered By: DR del valle Pre-Operative Diagnosis: Tricmpartmental O/A Right Knee. anterior qand posterior synovitis. \posterior capsular contracture. lateral patella retinacular contracutre. prepatella bursitis- severe Operative Findings: as above Post-Operative Diagnosis: as above Operation Performed: R TKR. posterior capsular relrease. prepatella bursectomy. lateral patella retinaculasr release. anterior and psoterior synovectomy. applx wound vac. computer navigation Specimen/Specimens Removed: sy nvoium/cartilage bone Estimated Blood Loss: EBL {In ML}: 45 Blood Products Given: N/A Drains Used: Wound Vac Post-Op Condition: Fair Date of Surgery/Procedure: 06/03/18 Time of Surgery/Procedure: 10:35 (time in room/anaesthesia indcutioin time 9:25)
[2018-06-03] MEDS: HYDROmorphone 0.5 mg/0.5 ml ISec IVP PRN ×3 (13:00→13:30)
[2018-06-03] MEDS ORDERED: HYDROmorphone 1 mg/ml ISec ONE (13:01)
--- NOTE | 2018-06-03 13:28 | RAD ---
Date of service: 06/03/2018 PROCEDURE: Right Knee Radiographs. HISTORY: s/p R TKA COMPARISON: None. FINDINGS: BONES: Expected findings related to recent right TKA : JOINT EFFUSION: None. OTHER FINDINGS: None. IMPRESSION: Satisfactory postoperative status.
[2018-06-03] MEDS: Sodium Chloride 0.9% 1,000 ML IV SCH (16:34)
[2018-06-03] MEDS: oxyCODONE 10 mg Immediate Release Tab PO PRN (16:50)
[2018-06-03] MEDS: ceFAZolin IV 2 gm in Dextrose 2 GM/50 ML BAG IVPB SCH (17:51)
[2018-06-03] MEDS ORDERED: HYDROmorphone 0.5 mg/0.5 ml ISec IVP STA (22:15)
[2018-06-04] MEDS: ceFAZolin IV 2 gm in Dextrose 2 GM/50 ML BAG IVPB SCH (01:28)
[2018-06-04] MEDS: Sodium Chloride 0.9% 1,000 ML IV SCH (01:28)
[2018-06-04 07:03] LABS: BLOOD UREA NITROGEN 12 mg/dl (9-20); CALCIUM 8.5 mg/dL (8.4-10.2); GFR AFRICAN-AMERICAN > 60; GFR NON-AFRICAN AMERICAN > 60
[2018-06-04 07:06] LABS: HEMOGLOBIN 13.5 g/dL (12.0-18.0); MEAN CORPUSCULAR HEMOGLOBIN 30.9 pg (27.0-31.0); MEAN CORPUSCULAR HGB CONC 33.9 g/dL (33.0-37.0); RBC 4.36 Mil/uL (4.40-5.90); WHITE BLOOD COUNT 12.6 K/uL (4.8-10.8)
[2018-06-04] MEDS ORDERED: HYDROmorphone 1 mg/ml ISec IVP PRN (07:15)
[2018-06-04] MEDS: oxyCODONE 10 mg Immediate Release Tab PO PRN ×3 (07:55→18:02)
--- NOTE | 2018-06-04 08:30 | CP.PCM.HP ---
History of Present Illness - History of Present Illness History of Present Illness: 58 YR OLD MALE ADMITTED FOR ELECTIVE R TOTAL KNEE REPLACEMENT SURGERY FOR ARTHRITIS.HISTORY OF P[ERSISTENT KNEE PAIN WITH DIFFICULTY AMBULATING HX OF HYPERLIPIDEMIA Present on Admission - Present on Admission Any Indicators Present on Admission: Yes Past Patient History - Past Medical History & Family History Past Medical History?: Yes Past Family History: Reviewed and not pertinent - Past Social History Smoking Status: Never Smoked Alcohol: None Drugs: Denies - CARDIAC Hx Cardiac Disorders: Yes Hx Hypercholesterolemia: Yes Hx Hypertension: Yes - PULMONARY Hx Respiratory Disorders: Yes Hx Chronic Obstructive Pulmonary Disease (COPD): Yes - NEUROLOGICAL Hx Neurological Disorder: No - HEENT Hx HEENT Problems: No - RENAL Hx Chronic Kidney Disease: No - ENDOCRINE/METABOLIC Hx Endocrine Disorders: No - HEMATOLOGICAL/ONCOLOGICAL Hx Blood Disorders: No Hx AIDS: No Hx Blood Transfusions: No Hx Human Immunodeficiency Virus (HIV): No - INTEGUMENTARY Hx Dermatological Problems: No - MUSCULOSKELETAL/RHEUMATOLOGICAL Hx Musculoskeletal Disorders: Yes (back pain) Hx Arthritis: Yes (back) Hx Back Pain: Yes Hx Falls: No Hx Fractures: Yes - GASTROINTESTINAL Hx Gastrointestinal Disorders: Yes Hx Gastritis: Yes (HEARTBURN) Hx Ulcer: Yes - GENITOURINARY/GYNECOLOGICAL Hx Genitourinary Disorders: No - PSYCHIATRIC Hx Psychophysiologic Disorder: No Hx Emotional Abuse: No Hx Physical Abuse: No Hx Substance Use: No - SURGICAL HISTORY Hx Surgeries: Yes Hx Angioplasty: Yes (nov 22) Hx Arthroscopy: Yes (BILATERAL KNEES arthroscopies) Hx Cardiac Catheterization: Yes Hx Herniorrhaphy: Yes (40+ years ago right inguinal) Hx Orthopedic Surgery: Yes (right hand fifth metacarpal ORIF) - ANESTHESIA Hx Anesthesia: Yes Hx Anesthesia Reactions: No Hx Malignant Hyperthermia: No Has any member of the family had a problem w/ anesthesia?: No Meds Allergies/Adverse Reactions: Allergies Allergy/AdvReac Type Severity Reaction Status Date / Time No Known Allergies Allergy Verified 06/03/18 06:27 Physical Exam - Constitutional Appears: Well - Head Exam Head Exam: ATRAUMATIC, NORMAL INSPECTION, NORMOCEPHALIC - Eye Exam Eye Exam: EOMI, Normal appearance, PERRL Pupil Exam: NORMAL ACCOMODATION, PERRL - ENT Exam ENT Exam: Mucous Membranes Moist, Normal Exam - Neck Exam Neck exam: Positive for: Normal Inspection - Respiratory Exam Respiratory Exam: Clear to Auscultation Bilateral, NORMAL BREATHING PATTERN - Cardiovascular Exam Cardiovascular Exam: REGULAR RHYTHM - GI/Abdominal Exam GI & Abdominal Exam: Normal Bowel Sounds, Soft. absent: Tenderness - Rectal Exam Rectal Exam: NORMAL INSPECTION - Extremities Exam Extremities exam: Positive for: normal inspection, tenderness Additional comments: R KNEE PAIN - Back Exam Back exam: NORMAL INSPECTION - Neurological Exam Neurological exam: Alert, CN II-XII Intact, Normal Gait, Oriented x3, Reflexes Normal - Psychiatric Exam Psychiatric exam: Normal Affect, Normal Mood - Skin Skin Exam: Dry, Intact, Normal Color, Warm Results - Vital Signs Recent Vital Signs: Last Vital Signs Temp 97.4 F L 06/04/18 03:29 Pulse 98 H 06/04/18 03:29 Resp 16 06/04/18 03:29 BP 133/79 06/04/18 03:29 Pulse Ox 94 L 06/04/18 03:29 - Labs Result Diagrams: 06/04/18 05:15 06/04/18 05:15 Labs: Laboratory Results - last 24 hr 06/03/18 06/03/18 06/04/18 07:09 10:35 05:15 WBC 12.6 H D RBC 4.36 L Hgb 13.5 Hct 39.7 MCV 91.0 MCH 30.9 MCHC 33.9 RDW 13.0 Plt Count 284 Sodium Potassium Chloride Carbon Dioxide Anion Gap BUN Creatinine Est GFR ( Amer) Est GFR (Non-Af Amer) Random Glucose Calcium Fluid Type Synovial fluid Synovial WBC 144.0 Synovial RBC 051352.0 H Synovial Neutrophils 62.0 H Synovial Lymphocytes 33.0 H Synov Monos/Macrophage 5 H Synovial Fluid Comment Turbid Blood Type B POSITIVE Antibody Screen Negative 06/04/18 05:15 WBC RBC Hgb Hct MCV MCH MCHC RDW Plt Count Sodium 137 Potassium 3.7 Chloride 98 Carbon Dioxide 27 Anion Gap 16 BUN 12 Creatinine 0.8 Est GFR ( Amer) > 60 Est GFR (Non-Af Amer) > 60 Random Glucose 110 Calcium 8.5 Fluid Type Synovial WBC Synovial RBC Synovial Neutrophils Synovial Lymphocytes Synov Monos/Macrophage Synovial Fluid Comment Blood Type Antibody Screen Assessment & Plan - Assessment and Plan (Free Text) Assessment: S/P K TKR HYPERLIPIDEMIA ARTHRITIS Plan: CONTINUE RX ORDERED PHYSICAL RX - Date & Time Date: 06/04/18 Time: 08:31
[2018-06-04 08:55] VITALS: RESP 20
[2018-06-04] MEDS ORDERED: Enoxaparin 40 mg Syringe SC SCH (11:30)
--- NOTE | 2018-06-04 12:16 | CP.PCM.PN ---
Subjective - Date & Time of Evaluation Date of Evaluation: 06/04/18 Time of Evaluation: 10:30 - Subjective Subjective: Patient seen and examined at bedside. Pain is moderate immediately following PT session. Pt noticed nerve block wearing off around 3 AM last night. Tolerated PT well ambulating down hallway and stair climbing. No other complaints. Objective - Vital Signs/Intake and Output Vital Signs (last 24 hours): Temp Pulse Resp BP Pulse Ox 98.2 F 83 20 133/83 96 06/04/18 08:54 06/04/18 08:54 06/04/18 08:54 06/04/18 08:54 06/04/18 08:54 - Medications Medications: Current Medications Acetaminophen (Tylenol 325mg Tab) 650 mg PO Q6 [facility] [place] Last Admin: 06/04/18 09:30 Dose: 650 mg Aspirin (Aspirin Chewable) 81 mg PO DAILY [facility] [place] Last Admin: 06/04/18 08:39 Dose: 81 mg Atorvastatin Calcium (Lipitor) 10 mg PO DAILY [facility] [place] Last Admin: 06/04/18 08:40 Dose: 10 mg Docusate Sodium (Colace) 100 mg PO BID [facility] [place] Last Admin: 06/04/18 08:39 Dose: 100 mg Enoxaparin Sodium (Lovenox) 40 mg SC Q24H [facility] [place] PRN Reason: Protocol Ferrous Sulfate (Feosol) 325 mg PO BID [facility] [place] Last Admin: 06/04/18 08:40 Dose: 325 mg Folic Acid (Folic Acid) 1 mg PO DAILY [facility] [place] Last Admin: 06/04/18 08:40 Dose: 1 mg Gabapentin (Neurontin) 600 mg PO TID [facility] [place] Last Admin: 06/04/18 08:40 Dose: 600 mg Hydromorphone HCl (Dilaudid) 2 mg IVP Q4 PRN PRN Reason: Pain, severe (8-10) Last Admin: 06/04/18 10:06 Dose: 2 mg Sodium Chloride (Sodium Chloride 0.9%) 1,000 mls @ 100 mls/hr IV .Q10H [facility] [place] Stop: 06/04/18 15:29 Last Admin: 06/04/18 01:28 Dose: 100 mls/hr Lactated Ringer's (Lactated Ringer's) 1,000 mls @ 100 mls/hr IV .Q10H [facility] [place] Losartan Potassium (Cozaar) 25 mg PO DAILY [facility] [place] Last Admin: 06/04/18 08:40 Dose: 25 mg Oxycodone HCl (Oxycodone Immediate Release Tab) 10 mg PO Q4H PRN PRN Reason: Pain, moderate (4-7) Last Admin: 06/04/18 07:55 Dose: 10 mg - Labs Labs: 06/04/18 05:15 06/04/18 05:15 - Extremities Exam Additional comments: Right knee: Dressings CDI, BAO intact sensation intact SP/DP/TN motor intact EHL/FHL/TA/G/Q/HS pedal pulse intact comps soft NT Assessment and Plan (1) Osteoarthritis of right knee Assessment & Plan: POD#1 s/p right TKA doing well -pain control -PT/OT WBAT -complete postop abx -DVT ppx -orthopedically stable -discharge planning for discharge tomorrow -above d/w Dr. Plasencia in agreement Status: Acute
--- NOTE | 2018-06-04 14:07 | OP ---
PROCEDURE DATE: 06/03/2018 PREOPERATIVE DIAGNOSIS: Tricompartmental osteoarthritis of the right knee. POSTOPERATIVE DIAGNOSES: 1. Tricompartmental osteoarthritis of the right knee. 2. Tricompartmental synovitis. PROCEDURES: 1. Right total knee replacement arthroplasty. 2. Prepatellar bursectomy. 3. Posterior capsular release. 4. Anterior and posterior synovectomy of the knee joint compartments. 5. Lateral patellar retinacular release. 6. Computer navigation with the Knee[employer] accelerometer technology. SURGEON: Sage Plasencia MD. JUDO INSTRUCTOR: Shameka Venegas, certified registered nursing airplane first officer. SECOND INVESTIGATOR INTERNAL AFFAIRS: Charly Dietz PA-C. ANESTHESIA: Spinal and general anesthetic. ANESTHESIOLOGIST: Carlo Langley MD. BLOOD LOSS: 85 mL. COMPLICATIONS: No complications. Application of wound VAC drain, BAO. OPERATIVE INDICATION: Cj Dang is a 58-year-old gentleman status post knee arthroscopy, who is now status post severe pain and restricted range of motion of the right knee. The patient has failed conservative management consisting of anti-inflammatory medication, intra-articular injection, activity modification therapy. Pros, cons, risks and benefits of surgery approach were discussed, the possibility of mechanical failure, infection, thromboembolic disease, possibility of secondary or tertiary surgery was discussed. The patient can no longer withstands the discomfort and wished the surgery to be accomplished. OPERATIVE PROCEDURE: After having obtained informed consent, after thoroughly discussing the alternative procedures, benign neglect arthroscopy, the possibility of mechanical failure, infection, thromboembolic disease, secondary or tertiary surgery was discussed. DESCRIPTION OF PROCEDURE: After having obtained informed consent, after thoroughly discussing the pros, cons, risks and benefits of surgical approach, the possibility of mechanical failure, infection, thromboembolic disease, secondary or tertiary surgery, after having obtained informed consent in the above fashion, after having identified the side, site and procedure and a critical pause/time-out after the satisfactory induction of the anesthetic, the patient identified as Cj Dang in the supine position with all bony prominence well padded. The left lower extremity was prepped and free draped in usual fashion for lower extremity surgery. The tourniquet had been applied but has not yet inflated. After exsanguinating the limb using a 6-inch Esmarch bandage, tourniquet which had been applied was inflated to 350 mmHg. This having been accomplished, a 6-inch straight midline approach was made to the knee. The skin incision was carried down through the skin and subcutaneous tissue. Medial arthrotomy was accomplished. The patella was everted. The knee was flexed. Dissection was carried around posteromedially to the direct head of the semimembranosus tendon. The portion of the patellar ligament was elevated. The tibia was dislocated anteriorly. Anterior and posterior cruciate ligaments were excised, medial and lateral meniscectomies were accomplished. The tibia was dislocated anteriorly. Computer navigation commences, the strut was placed anteriorly on the anterior aspect of the tibia. The accelerometer and the sensor are placed on the apparatus and the cut was set after registration of the offset, the medial and lateral malleoli, the cut was set to 0 degrees varus-valgus and 3.5 degrees posterior slope. The depth of the cut was 10 mm. The initial osteotomy was accomplished on the tibial side and it was completed. A portion of the iliotibial band was released. The apparatus was removed. Computer navigation having been accomplished. Attention was turned to the femur. The navigation pin was placed superior to the intercondylar notch and the distal cutting guide was placed. The distal cutting guide was set. The accelerometer was placed as was the sensor. The hip center was found and the cut was set to 0 degrees varus-valgus and 1 degree of flexion. Distal femoral cut was cut at 9 mm. This was accomplished with computer navigation in the above fashion. Sizing was accomplished to a 5+ femoral component. The distal block was applied. Anterior and posterior osteotomies were accomplished. It should be noted that on the approach, skin incision was carried down through the skin and subcutaneous tissue to the level of the prepatellar bursa. The prepatellar bursectomy was accomplished and this having been accomplished, the patella was everted. Patella having been everted, the tibial cut having been accomplished. The lamina 3d technologist was placed after the femoral cuts and the posterior capsule was found to be contracted. The posterior capsule was carefully released and the lateral patellar retinacular release was accomplished as well. Anterior and posterior synovectomy was accomplished as well to find the anterior aspect of the femur. This having been accomplished, the femoral trial was placed, impacted and the lug holes were drilled. The tibia was prepared. Guidance to rotation of the tibia on the lateral aspect of tibial condyle, mid malleolar axis, and medial third of the tibial tuberosity. The proximal tibia having been prepared, 10-mm insert flexion and extension gap was found to be balanced. The patella was found to be balanced. Patella girth was 30 mm. Freehand patella cut was accomplished. Patella was reamed for the appropriate size #3 patella. Again, the patella balance was excellent. Flexion and extension gap was excellent, so the femoral trochlea was now placed and the trochlear guide was placed and the trochlea was reamed. This having been accomplished, trialing was again accomplished with the #5 and a half-cemented femoral component, #4 tibial tray, 10 mm polyethylene, 3 patella, and balance was excellent. At this point in time, the femur, tibia and patella were prepared. The #5+ femoral component was impacted, 4 tibial tray, 10 mm polyethylene was impacted and screwed in place. The patella was cemented. The knee was reduced, found be stable in all planes. No evidence of instability. The medial pivot sphere implant was accomplished. The wound was thoroughly irrigated. Closures in layers, #2 FiberWire, followed by #1 Vicryl, 0 Vicryl, 2-0 Vicryl, crystal for skin. The tourniquet was deflated. Hemostasis controlled, the BAO wound VAC was employed. Anthony Gray compression dressing and knee immobilizer was applied. The operation could not have been completed without the assistance of Shameka Venegas and airplane first officer Charly Dietz. OPERATIVE PROCEDURES: 1. Right total knee replacement. 2. Arthrotomy and prepatellar bursectomy. 3. Posterior capsular release. 4. Lateral patellar retinacular release. 5. Anterior and posterior synovectomy. 6. Application of wound vacuum assisted closure. 7. Computer navigation. Sage Plasencia MD
[2018-06-04 16:12] VITALS: BP 148/88; PULSE 111; TEMP 98.1; O2SAT 97
[2018-06-04] MEDS ORDERED: oxyCODONE 10 mg ER Tab (oxyCONTIN) PO SCH (21:00)
--- NOTE | 2018-06-05 08:48 | CP.PCM.DIS ---
Provider - Provider Date of Admission: 06/03/18 09:23 Attending physician: Jose Guadalupe Hassan MD Primary care physician: Jose Guadalupe Hassan MD Time Spent in preparation of Discharge (in minutes): 30 Diagnosis - Discharge Diagnosis (1) Hypertension Status: Acute (2) Hyperlipidemia Status: Acute (3) Status post right knee replacement Status: Acute (4) Osteoarthritis of right knee Status: Acute Hospital Course - Lab Results Lab Results: Micro Results 06/03/18 10:35 Other: Please Indicate Mycobacterial Culture - Preliminary 06/03/18 10:35 Body Fluid - Knee-Right Gram Stain - Final 06/03/18 10:35 Body Fluid - Knee-Right Body Fluid Culture - Preliminary NO GROWTH AFTER 24 HOURS 06/03/18 11:00 Knee - Right Gram Stain - Final 06/03/18 11:00 Knee - Right Wound Culture - Preliminary NO GROWTH AFTER 24 HOURS 06/03/18 11:00 Knee - Right Gram Stain - Final 06/03/18 11:00 Knee - Right Wound Culture - Preliminary NO GROWTH AFTER 24 HOURS 06/03/18 11:00 Knee - Right Gram Stain - Final 06/03/18 11:00 Knee - Right Wound Culture - Preliminary NO GROWTH AFTER 24 HOURS 06/03/18 11:00 Knee - Right Gram Stain - Final 06/03/18 11:00 Knee - Right Wound Culture - Preliminary NO GROWTH AFTER 24 HOURS 06/03/18 11:00 Knee - Right Gram Stain - Final 06/03/18 11:00 Knee - Right Wound Culture - Preliminary NO GROWTH AFTER 24 HOURS 06/03/18 11:00 Knee - Right Gram Stain - Final 06/03/18 11:00 Knee - Right Wound Culture - Preliminary NO GROWTH AFTER 24 HOURS 06/03/18 11:00 Knee - Right Gram Stain - Final 06/03/18 11:00 Knee - Right Wound Culture - Preliminary NO GROWTH AFTER 24 HOURS 06/03/18 11:00 Knee - Right Gram Stain - Final 06/03/18 11:00 Knee - Right Wound Culture - Preliminary NO GROWTH AFTER 24 HOURS Most Recent Lab Values WBC 12.6 K/uL (4.8-10.8) H D 06/04/18 05:15 RBC 4.36 Mil/uL (4.40-5.90) L 06/04/18 05:15 Hgb 13.5 g/dL (12.0-18.0) 06/04/18 05:15 Hct 39.7 % (35.0-51.0) 06/04/18 05:15 MCV 91.0 fl (80.0-94.0) 06/04/18 05:15 MCH 30.9 pg (27.0-31.0) 06/04/18 05:15 MCHC 33.9 g/dL (33.0-37.0) 06/04/18 05:15 RDW 13.0 % (11.5-14.5) 06/04/18 05:15 Plt Count 284 K/uL (130-400) 06/04/18 05:15 Sodium 137 mmol/l (132-148) 06/04/18 05:15 Potassium 3.7 MMOL/L (3.6-5.0) 06/04/18 05:15 Chloride 98 mmol/L (98-107) 06/04/18 05:15 Carbon Dioxide 27 mmol/L (22-30) 06/04/18 05:15 Anion Gap 16 (10-20) 06/04/18 05:15 BUN 12 mg/dl (9-20) 06/04/18 05:15 Creatinine 0.8 mg/dl (0.8-1.5) 06/04/18 05:15 Est GFR ( Amer) > 60 06/04/18 05:15 Est GFR (Non-Af Amer) > 60 06/04/18 05:15 Random Glucose 110 mg/dL (75-110) 06/04/18 05:15 Calcium 8.5 mg/dL (8.4-10.2) 06/04/18 05:15 25-OH Vitamin D Total < 12.8 NG/ML (30.0-100.0) L 06/04/18 05:15 Fluid Type Synovial fluid 06/03/18 10:35 Synovial WBC 144.0 /mm3 (0.0-150.0) 06/03/18 10:35 Synovial RBC 448532.0 /mm3 (0.0-0.0) H 06/03/18 10:35 Synovial Neutrophils 62.0 % (0-0) H 06/03/18 10:35 Synovial Lymphocytes 33.0 % (0-0) H 06/03/18 10:35 Synov Monos/Macrophage 5 % (0-0) H 06/03/18 10:35 Synovial Fluid Comment Turbid 06/03/18 10:35 Blood Type B POSITIVE 06/03/18 07:09 Antibody Screen Negative 06/03/18 07:09 BBK History Checked Patient has bt 06/03/18 07:09 Discharge Exam - Head Exam Head Exam: ATRAUMATIC, NORMAL INSPECTION, NORMOCEPHALIC - Eye Exam Eye Exam: EOMI, Normal appearance, PERRL Pupil Exam: NORMAL ACCOMODATION, PERRL - GI/Abdominal Exam GI & Abdominal Exam: Normal Bowel Sounds - Rectal Exam Rectal Exam: NORMAL INSPECTION - Extremities Exam Extremities exam: tenderness Additional comments: R KNEE SURGICAL SITE - Neurological Exam Neurological exam: Alert, CN II-XII Intact, Normal Gait, Oriented x3, Reflexes Normal - Psychiatric Exam Psychiatric exam: Normal Affect, Normal Mood - Skin Skin Exam: Dry, Intact, Normal Color, Warm Discharge Plan - Follow Up Plan Condition: GOOD Disposition: REHAB FACILITY/REHAB UNIT Patient education suggested?: Yes Instructions: Osteoarthritis (DC), Total Knee Replacement (DC) Additional Instructions: TRANSFER TO TRANSITIONAL CARE Referrals: Jose Guadalupe Hassan MD [Primary Care Provider] -
== END 2018-06-04 18:30 | DRG 470 ==
LOC: H.OPSURG 06:01 → H.MEDSURG1 09:23
PROVIDERS: ADMIT Internal Medicine Pulmonary Disease; ATTEND Internal Medicine Pulmonary Disease
PROC: 0MBN0ZZ Excision of Right Knee Bursa and Ligament, Open Approach (ICD-10-PCS; 2018-06-03)
PROC: 8E0YXBZ Computer Assisted Procedure of Lower Extremity (ICD-10-PCS; 2018-06-03)
PROC: 3E0T3BZ Introduction of Anesthetic Agent into Peripheral Nerves and Plexi, Percutaneous Approach (ICD-10-PCS; 2018-06-03)
PROC: 3E0T3BZ Introduction of Anesthetic Agent into Peripheral Nerves and Plexi, Percutaneous Approach (ICD-10-PCS; 2018-06-03)
PROC: 0SRC0J9 Replacement of Right Knee Joint with Synthetic Substitute, Cemented, Open Approach (ICD-10-PCS; principal; 2018-06-03 11:45)
PROC: 0SBC0ZZ Excision of Right Knee Joint, Open Approach (ICD-10-PCS; 2018-06-03 11:45)
PROC: 0SNC0ZZ Release Right Knee Joint, Open Approach (ICD-10-PCS; 2018-06-03 11:45)
DX: M17.11 Unilateral primary osteoarthritis, right knee (principal); I25.10 Atherosclerotic heart disease of native coronary artery without angina pectoris; E78.5 Hyperlipidemia, unspecified; J44.9 Chronic obstructive pulmonary disease, unspecified; E78.00 Pure hypercholesterolemia, unspecified; I10 Essential (primary) hypertension; M65.9 Synovitis and tenosynovitis, unspecified; M24.561 Contracture, right knee; M70.41 Prepatellar bursitis, right knee

== ENCOUNTER 2018-06-04 15:51 | Inpatient (IN) | payer BC ==
[2018-05-30 16:30] VITALS: BMI 27.5
[2018-06-04 19:39] VITALS: RESP 20
[2018-06-04] MEDS ORDERED: Enoxaparin 40 mg Syringe SC SCH (19:45)
[2018-06-04] MEDS: oxyCODONE 10 mg Immediate Release Tab PO PRN (19:59)
[2018-06-04] MEDS: oxyCODONE 10 mg ER Tab (oxyCONTIN) PO SCH (21:29)
[2018-06-05] MEDS: oxyCODONE 10 mg Immediate Release Tab PO PRN ×5 (01:26→18:24)
--- NOTE | 2018-06-05 07:25 | CP.PCM.PN ---
Subjective - Date & Time of Evaluation Date of Evaluation: 06/05/18 Time of Evaluation: 07:25 - Subjective Subjective: Patient seen and examined at bedside comfortable. Pain better controlled compared to yesterday, now on oral narcotics. No new complaints. Objective - Vital Signs/Intake and Output Vital Signs (last 24 hours): Temp Pulse Resp BP Pulse Ox 99.5 F 102 H 20 159/85 H 96 06/04/18 19:38 06/04/18 19:51 06/04/18 19:51 06/04/18 19:38 06/04/18 19:51 - Medications Medications: Current Medications Acetaminophen (Tylenol 325mg Tab) 650 mg PO Q4 PRN PRN Reason: Fever of 100.6 F and Above Aspirin (Aspirin Chewable) 81 mg PO DAILY [facility] Atorvastatin Calcium (Lipitor) 10 mg PO HS [facility] Last Admin: 06/04/18 21:30 Dose: 10 mg Docusate Sodium (Colace) 100 mg PO BID [facility] Enoxaparin Sodium (Lovenox) 40 mg SC DAILY [facility] PRN Reason: Protocol Ferrous Sulfate (Feosol) 325 mg PO BID [facility] Folic Acid (Folic Acid) 1 mg PO DAILY [facility] Gabapentin (Neurontin) 600 mg PO TID [facility] Losartan Potassium (Cozaar) 25 mg PO DAILY [facility] Ondansetron HCl (Zofran Inj) 4 mg IVP Q4 PRN PRN Reason: Nausea/Vomiting Oxycodone HCl (Oxycodone Immediate Release Tab) 10 mg PO Q4H PRN PRN Reason: Pain, moderate (4-7) Last Admin: 06/05/18 05:07 Dose: 10 mg Oxycodone HCl (Oxycontin Extended Release Tab) 10 mg PO Q12 [facility] Last Admin: 06/04/18 21:29 Dose: 10 mg - Extremities Exam Additional comments: R knee: Dressings CDI, BAO CDI, no drainage mild swelling/tenderness 2nd to surgery sensation intact SP/DP/TN motor intact EHL/FHL/TA/G pedal pulses intact comps soft NT Assessment and Plan (1) Status post right knee replacement Assessment & Plan: POD# 2 s/p R TKA doing well -pain controlled -PT/OT WBAT -CPM/Knee imm as per order -DVT ppx -orthopedically stable -above d/w Dr. Plasencia in agreement Status: Acute
[2018-06-05] MEDS: oxyCODONE 10 mg ER Tab (oxyCONTIN) PO SCH ×2 (08:27→21:30)
[2018-06-05] MEDS: Enoxaparin 40 mg Syringe SC SCH (08:30)
--- NOTE | 2018-06-05 08:37 | CP.PCM.HP ---
History of Present Illness - History of Present Illness History of Present Illness: 58 YR OLD MALE WHO IS S/ R TOTAL KNEE REPLACEMENT SURGERY BECAUSE OF SEVERE ARTHRITIS WITH PAIN AND DIFFICULTY AMBULATING.HE IS ADMITTED TO TRANSITIONAL CARE FOR REHABILITATION. PAST HISTORY OF HYPERTENSION AND HYPERLIPIDEMIA Present on Admission - Present on Admission Any Indicators Present on Admission: Yes Past Patient History - Past Medical History & Family History Past Medical History?: Yes - Past Social History Smoking Status: Never Smoked - CARDIAC Hx Hypercholesterolemia: Yes Hx Hypertension: Yes - PULMONARY Hx Respiratory Disorders: Yes Hx Chronic Obstructive Pulmonary Disease (COPD): Yes - NEUROLOGICAL Hx Neurological Disorder: No - HEENT Hx HEENT Problems: No - RENAL Hx Chronic Kidney Disease: No - ENDOCRINE/METABOLIC Hx Endocrine Disorders: No - HEMATOLOGICAL/ONCOLOGICAL Hx Blood Disorders: No Hx AIDS: No Hx Blood Transfusions: No Hx Human Immunodeficiency Virus (HIV): No - INTEGUMENTARY Hx Dermatological Problems: No - MUSCULOSKELETAL/RHEUMATOLOGICAL Hx Arthritis: Yes Hx Falls: No - GASTROINTESTINAL Hx Gastrointestinal Disorders: Yes Hx Gastritis: Yes (HEARTBURN) Hx Ulcer: Yes - GENITOURINARY/GYNECOLOGICAL Hx Genitourinary Disorders: No - PSYCHIATRIC Hx Substance Use: No - SURGICAL HISTORY Hx Surgeries: Yes Hx Angioplasty: Yes (nov 22) Hx Arthroscopy: Yes (BILATERAL KNEES arthroscopies) Hx Cardiac Catheterization: Yes Hx Herniorrhaphy: Yes (40+ years ago right inguinal) Hx Orthopedic Surgery: Yes (right hand fifth metacarpal ORIF) - ANESTHESIA Hx Anesthesia: Yes Hx Anesthesia Reactions: No Hx Malignant Hyperthermia: No Meds Allergies/Adverse Reactions: Allergies Allergy/AdvReac Type Severity Reaction Status Date / Time No Known Allergies Allergy Verified 06/04/18 17:11 Physical Exam - Constitutional Appears: In Acute Distress - Head Exam Head Exam: ATRAUMATIC, NORMAL INSPECTION, NORMOCEPHALIC - Eye Exam Eye Exam: EOMI, Normal appearance, PERRL Pupil Exam: NORMAL ACCOMODATION, PERRL - ENT Exam ENT Exam: Mucous Membranes Moist, Normal Exam - Neck Exam Neck exam: Positive for: Normal Inspection - Respiratory Exam Respiratory Exam: Clear to Auscultation Bilateral, NORMAL BREATHING PATTERN - Cardiovascular Exam Cardiovascular Exam: REGULAR RHYTHM - GI/Abdominal Exam GI & Abdominal Exam: Normal Bowel Sounds, Soft. absent: Tenderness - Rectal Exam Rectal Exam: NORMAL INSPECTION - Extremities Exam Extremities exam: Positive for: normal inspection, tenderness Additional comments: R KNEE TENDERNESS DRY SURGICAL DRESSING AND DRAIN IN PLACE - Back Exam Back exam: NORMAL INSPECTION - Neurological Exam Neurological exam: Alert, CN II-XII Intact, Normal Gait, Oriented x3, Reflexes Normal - Psychiatric Exam Psychiatric exam: Normal Affect, Normal Mood - Skin Skin Exam: Dry, Intact, Normal Color, Warm Results - Vital Signs Recent Vital Signs: Last Vital Signs Temp 98.1 F 06/05/18 08:17 Pulse 106 H 06/05/18 08:17 Resp 20 06/05/18 08:17 BP 129/79 06/05/18 08:17 Pulse Ox 96 06/05/18 08:17 Assessment & Plan - Assessment and Plan (Free Text) Assessment: S/P R TKR HYPERTENSION ARTHRITIS HYPERLIPIDEMIA Plan: CONTINUE RX ORDERED
[2018-06-05] MEDS ORDERED: Lactulose 10 gm/15 ml Syrup PO ONE (09:00)
--- NOTE | 2018-06-05 11:26 | RAD ---
Date of service: 06/05/2018 HISTORY: tcu protocol COMPARISON: 11/19/2017. FINDINGS: LUNGS: The lungs are well inflated and clear. PLEURA: No significant pleural effusion identified, no pneumothorax apparent. CARDIOVASCULAR: Normal. OSSEOUS STRUCTURES: No significant abnormalities. VISUALIZED UPPER ABDOMEN: Normal. OTHER FINDINGS: None. IMPRESSION: No active pulmonary disease.
[2018-06-06] MEDS: oxyCODONE 10 mg Immediate Release Tab PO PRN ×5 (00:06→18:57)
[2018-06-06 06:23] LABS: BASO % 0.1 % (0.0-2.0); EOS % 0.2 % (0.0-4.0); HEMOGLOBIN 11.4 g/dL (12.0-18.0); LYMPH # 1.3 K/uL (1.0-4.3); LYMPH % 10.2 % (20.0-40.0); MEAN CELL VOLUME 90.7 fl (80.0-94.0); MEAN CORPUSCULAR HEMOGLOBIN 31.4 pg (27.0-31.0); MEAN CORPUSCULAR HGB CONC 34.6 g/dL (33.0-37.0); MEAN PLATELET VOLUME 7.8 fl (7.2-11.7); MONO # 1.8 K/uL (0.0-0.8); MONO % 14.2 % (0.0-10.0); NEUT # 9.4 K/uL (1.8-7.0); NEUT % 75.3 % (50.0-75.0); RBC 3.64 Mil/uL (4.40-5.90); RED CELL DISTRIBUTION WIDTH 12.4 % (11.5-14.5); WHITE BLOOD COUNT 12.4 K/uL (4.8-10.8)
[2018-06-06 06:32] LABS: BLOOD UREA NITROGEN 10 mg/dl (9-20); CALCIUM 8.8 mg/dL (8.4-10.2); GFR AFRICAN-AMERICAN > 60; GFR NON-AFRICAN AMERICAN > 60
[2018-06-06] MEDS: Enoxaparin 40 mg Syringe SC SCH (08:09)
--- NOTE | 2018-06-06 08:23 | CP.PCM.PN ---
Subjective - Date & Time of Evaluation Date of Evaluation: 06/06/18 Time of Evaluation: 07:30 - Subjective Subjective: Patient seen and examined at bedside comfortable. Pt states he is sore this AM due to high activity performed yesterday in PT. No other complaints. Objective - Vital Signs/Intake and Output Vital Signs (last 24 hours): Temp Pulse Resp BP Pulse Ox 99.5 F 109 H 20 160/78 H 97 06/05/18 19:36 06/06/18 08:07 06/05/18 19:36 06/06/18 08:07 06/05/18 19:36 - Medications Medications: Current Medications Acetaminophen (Tylenol 325mg Tab) 650 mg PO Q4 PRN PRN Reason: Fever of 100.6 F and Above Aspirin (Aspirin Chewable) 81 mg PO DAILY [facility] Last Admin: 06/06/18 08:06 Dose: 81 mg Atorvastatin Calcium (Lipitor) 10 mg PO HS [facility] Last Admin: 06/05/18 21:30 Dose: 10 mg Celecoxib (Celebrex) 100 mg PO Q12 [facility] Docusate Sodium (Colace) 100 mg PO BID [facility] Last Admin: 06/06/18 08:06 Dose: 100 mg Enoxaparin Sodium (Lovenox) 40 mg SC DAILY [facility] PRN Reason: Protocol Last Admin: 06/06/18 08:09 Dose: 40 mg Ferrous Sulfate (Feosol) 325 mg PO BID [facility] Last Admin: 06/06/18 08:09 Dose: 325 mg Folic Acid (Folic Acid) 1 mg PO DAILY [facility] Last Admin: 06/06/18 08:09 Dose: 1 mg Gabapentin (Neurontin) 600 mg PO TID [facility] Last Admin: 06/06/18 08:09 Dose: 600 mg Losartan Potassium (Cozaar) 25 mg PO DAILY [facility] Last Admin: 06/06/18 08:07 Dose: 25 mg Ondansetron HCl (Zofran Inj) 4 mg IVP Q4 PRN PRN Reason: Nausea/Vomiting Oxycodone HCl (Oxycodone Immediate Release Tab) 10 mg PO Q4H PRN PRN Reason: Pain, moderate (4-7) Last Admin: 06/06/18 08:10 Dose: 10 mg Oxycodone HCl (Oxycontin Extended Release Tab) 10 mg PO Q12 [facility] Last Admin: 07/25/18 21:30 Dose: 10 mg - Labs Labs: 06/06/18 05:45 06/06/18 05:45 - Extremities Exam Additional comments: R knee: Dressings CDI, BAO CDI, BAO removed revealing wound intact with crystal no drainage mod swelling/tenderness sensation intact SP/DP/TN motor intact EHL/FHL/TA/G pedal pulses intact comps soft NT Assessment and Plan (1) Status post right knee replacement Assessment & Plan: POD# 3 s/p R TKA -BAO dressing changed this AM -PT/OT WBAT -CPM/Knee imm as per order -DVT ppx -orthopedically stable -above d/w Dr. Plasencia in agreement Status: Acute
[2018-06-06] MEDS: oxyCODONE 10 mg ER Tab (oxyCONTIN) PO SCH (09:30)
--- NOTE | 2018-06-06 09:49 | CP.PCM.PN ---
Subjective - Date & Time of Evaluation Date of Evaluation: 06/06/18 Time of Evaluation: 09:51 - Subjective Subjective: ambulating with a walker still in pain Objective - Vital Signs/Intake and Output Vital Signs (last 24 hours): Temp Pulse Resp BP Pulse Ox 96.6 F L 111 H 20 160/78 H 94 L 06/06/18 08:38 06/06/18 08:38 06/06/18 08:38 06/06/18 08:38 06/06/18 08:38 - Medications Medications: Current Medications Acetaminophen (Tylenol 325mg Tab) 650 mg PO Q4 PRN PRN Reason: Fever of 100.6 F and Above Aspirin (Aspirin Chewable) 81 mg PO DAILY [facility] Last Admin: 06/06/18 08:06 Dose: 81 mg Atorvastatin Calcium (Lipitor) 10 mg PO HS [facility] Last Admin: 06/05/18 21:30 Dose: 10 mg Celecoxib (Celebrex) 100 mg PO Q12 [facility] Docusate Sodium (Colace) 100 mg PO BID [facility] Last Admin: 06/06/18 08:06 Dose: 100 mg Enoxaparin Sodium (Lovenox) 40 mg SC DAILY [facility] PRN Reason: Protocol Last Admin: 06/06/18 08:09 Dose: 40 mg Ferrous Sulfate (Feosol) 325 mg PO BID [facility] Last Admin: 06/06/18 08:09 Dose: 325 mg Folic Acid (Folic Acid) 1 mg PO DAILY [facility] Last Admin: 06/06/18 08:09 Dose: 1 mg Gabapentin (Neurontin) 600 mg PO TID [facility] Last Admin: 06/06/18 08:09 Dose: 600 mg Losartan Potassium (Cozaar) 25 mg PO DAILY [facility] Last Admin: 06/06/18 08:07 Dose: 25 mg Ondansetron HCl (Zofran Inj) 4 mg IVP Q4 PRN PRN Reason: Nausea/Vomiting Oxycodone HCl (Oxycodone Immediate Release Tab) 10 mg PO Q4H PRN PRN Reason: Pain, moderate (4-7) Last Admin: 06/06/18 08:10 Dose: 10 mg Oxycodone HCl (Oxycontin Extended Release Tab) 10 mg PO Q12 [facility] Last Admin: 06/06/18 09:30 Dose: 10 mg - Labs Labs: 06/06/18 05:45 06/06/18 05:45 - Constitutional Appears: In Acute Distress - Head Exam Head Exam: ATRAUMATIC, NORMAL INSPECTION, NORMOCEPHALIC - Eye Exam Eye Exam: EOMI, Normal appearance, PERRL Pupil Exam: NORMAL ACCOMODATION, PERRL - ENT Exam ENT Exam: Mucous Membranes Moist, Normal Exam - Neck Exam Neck Exam: Full ROM, Normal Inspection. absent: Lymphadenopathy - Respiratory Exam Respiratory Exam: Clear to Ausculation Bilateral, NORMAL BREATHING PATTERN - Cardiovascular Exam Cardiovascular Exam: Tachycardia, REGULAR RHYTHM, +S1, +S2. absent: Murmur - GI/Abdominal Exam GI & Abdominal Exam: Soft, Normal Bowel Sounds. absent: Tenderness - Rectal Exam Rectal Exam: NORMAL INSPECTION - Extremities Exam Extremities Exam: Full ROM, Normal Capillary Refill, Normal Inspection, Tenderness. absent: Joint Swelling, Pedal Edema - Back Exam Back Exam: NORMAL INSPECTION - Neurological Exam Neurological Exam: Alert, Awake, CN II-XII Intact, Normal Gait, Oriented x3 - Psychiatric Exam Psychiatric exam: Normal Affect, Normal Mood - Skin Skin Exam: Dry, Intact, Normal Color, Warm Assessment and Plan - Assessment and Plan (Free Text) Assessment: s/p r tkr tachycardia--probably due to pain Plan: continue rx as ordered
--- NOTE | 2018-06-06 12:24 | CARD ---
APPROVED REPORT Date of service: 06/06/2018 EKG Measurement Heart [id number] <Conclusion> Sinus tachycardia Nonspecific ST and T wave abnormality Abnormal ECG
--- NOTE | 2018-06-06 18:00 | CP.PCM.CON ---
History of Present Illness - History of Present Illness History of Present Illness: Dr Callahan PMR consultation on Cj Dang, born 1960 who has been admitted to [facility] for ABRAM following a right TKR. Failed conservative care. Post op now with a lot of pain. He could not sleep and therapy "kicked my butt" . He is usually on Tramadol for pain. Review of Systems - Constitutional Constitutional: absent: Anorexia, Chills - EENT Eyes: absent: Change in Vision Ears: absent: Ear Discharge, Ear Pain Nose/Mouth/Throat: absent: Nasal Congestion - Cardiovascular Cardiovascular: absent: Chest Pain - Respiratory Respiratory: absent: Dyspnea, Hemoptysis - Gastrointestinal Gastrointestinal: absent: Constipation - Integumentary Integumentary: absent: Bleeding Lesions Past Patient History - Past Medical History & Family History Past Medical History?: Yes - Past Social History Smoking Status: Never Smoked Alcohol: None Drugs: Denies Home Situation {Lives}: With Family - CARDIAC Hx Hypercholesterolemia: Yes Hx Hypertension: Yes - PULMONARY Hx Respiratory Disorders: Yes Hx Chronic Obstructive Pulmonary Disease (COPD): Yes - NEUROLOGICAL Hx Neurological Disorder: No - HEENT Hx HEENT Problems: No - RENAL Hx Chronic Kidney Disease: No - ENDOCRINE/METABOLIC Hx Endocrine Disorders: No - HEMATOLOGICAL/ONCOLOGICAL Hx Blood Disorders: No Hx AIDS: No Hx Blood Transfusions: No Hx Human Immunodeficiency Virus (HIV): No - INTEGUMENTARY Hx Dermatological Problems: No - MUSCULOSKELETAL/RHEUMATOLOGICAL Hx Arthritis: Yes Hx Falls: No - GASTROINTESTINAL Hx Gastrointestinal Disorders: Yes Hx Gastritis: Yes (HEARTBURN) Hx Ulcer: Yes - GENITOURINARY/GYNECOLOGICAL Hx Genitourinary Disorders: No - PSYCHIATRIC Hx Substance Use: No - SURGICAL HISTORY Hx Surgeries: Yes Hx Angioplasty: Yes (nov 22) Hx Arthroscopy: Yes (BILATERAL KNEES arthroscopies) Hx Cardiac Catheterization: Yes Hx Herniorrhaphy: Yes (40+ years ago right inguinal) Hx Orthopedic Surgery: Yes (right hand fifth metacarpal ORIF) - ANESTHESIA Hx Anesthesia: Yes Hx Anesthesia Reactions: No Hx Malignant Hyperthermia: No Meds Allergies/Adverse Reactions: Allergies Allergy/AdvReac Type Severity Reaction Status Date / Time No Known Allergies Allergy Verified 06/04/18 17:11 - Medications Medications: Current Medications Acetaminophen (Tylenol 325mg Tab) 650 mg PO Q4 PRN PRN Reason: Fever of 100.6 F and Above Aspirin (Aspirin Chewable) 81 mg PO DAILY [facility] Last Admin: 06/06/18 08:06 Dose: 81 mg Atorvastatin Calcium (Lipitor) 10 mg PO HS [facility] Last Admin: 06/05/18 21:30 Dose: 10 mg Celecoxib (Celebrex) 100 mg PO Q12 [facility] Last Admin: 06/06/18 10:47 Dose: 100 mg Docusate Sodium (Colace) 100 mg PO BID [facility] Last Admin: 06/06/18 16:49 Dose: 100 mg Enoxaparin Sodium (Lovenox) 40 mg SC DAILY [facility] PRN Reason: Protocol Last Admin: 06/06/18 08:09 Dose: 40 mg Ferrous Sulfate (Feosol) 325 mg PO BID [facility] Last Admin: 06/06/18 16:50 Dose: 325 mg Folic Acid (Folic Acid) 1 mg PO DAILY [facility] Last Admin: 06/06/18 08:09 Dose: 1 mg Gabapentin (Neurontin) 600 mg PO TID [facility] Last Admin: 06/06/18 16:49 Dose: 600 mg Losartan Potassium (Cozaar) 25 mg PO DAILY [facility] Last Admin: 06/06/18 08:07 Dose: 25 mg Ondansetron HCl (Zofran Inj) 4 mg IVP Q4 PRN PRN Reason: Nausea/Vomiting Oxycodone HCl (Oxycodone Immediate Release Tab) 10 mg PO Q4H PRN PRN Reason: Pain, moderate (4-7) Last Admin: 06/06/18 13:06 Dose: 10 mg Oxycodone HCl (Oxycontin Extended Release Tab) 20 mg PO Q8 [facility] Physical Exam - Constitutional Appears: Non-toxic, Other (uncomfortable secondary to pain) - Head Exam Head Exam: ATRAUMATIC, NORMAL INSPECTION, NORMOCEPHALIC - Eye Exam Eye Exam: EOMI - ENT Exam ENT Exam: Mucous Membranes Moist - Respiratory Exam Respiratory Exam: NORMAL BREATHING PATTERN - Cardiovascular Exam Cardiovascular Exam: REGULAR RHYTHM - GI/Abdominal Exam GI & Abdominal Exam: Distended, Normal Bowel Sounds. absent: Firm, Rebound - Extremities Exam Extremities exam: Negative for: calf tenderness, full ROM (right knee with ice wrap and SONYA wrap) - Neurological Exam Neurological exam: Alert, CN II-XII Intact, Oriented x3 - Psychiatric Exam Psychiatric exam: Normal Affect, Normal Mood Results - Vital Signs Recent Vital Signs: Last Vital Signs Temp 97.9 F 06/06/18 16:49 Pulse 118 H 06/06/18 16:49 Resp 20 06/06/18 16:49 BP 101/70 06/06/18 16:49 Pulse Ox 93 L 06/06/18 16:49 - Labs Result Diagrams: 06/06/18 05:45 06/06/18 05:45 Labs: Laboratory Results - last 24 hr 06/06/18 06/06/18 05:45 05:45 WBC 12.4 H RBC 3.64 L Hgb 11.4 L D Hct 33.0 L MCV 90.7 MCH 31.4 H MCHC 34.6 RDW 12.4 Plt Count 270 MPV 7.8 Neut % (Auto) 75.3 H Lymph % (Auto) 10.2 L [place] % (Auto) 14.2 H Eos % (Auto) 0.2 Baso % (Auto) 0.1 Neut # (Auto) 9.4 H Lymph # (Auto) 1.3 [place] # (Auto) 1.8 H Eos # (Auto) 0.0 Baso # (Auto) 0.0 Sodium 134 Potassium 3.7 Chloride 96 L Carbon Dioxide 28 Anion Gap 14 BUN 10 Creatinine 0.8 Est GFR ( Amer) > 60 Est GFR (Non-Af Amer) > 60 Random Glucose 129 H Calcium 8.8 Assessment & Plan - Assessment and Plan (Free Text) Assessment: 58 year old male s/p right TKR in a lot of pain no constipation will continue current dose of breakthrough med but increase the oxycontin to 20mg q8 he is aware that on Sunday I will start to taper off the medication
[2018-06-06] MEDS: oxyCODONE 20 mg ER Tab (oxyCONTIN) PO SCH (21:04)
[2018-06-07] MEDS: oxyCODONE 10 mg Immediate Release Tab PO PRN ×3 (01:26→17:02)
[2018-06-07] MEDS: oxyCODONE 20 mg ER Tab (oxyCONTIN) PO SCH ×3 (05:01→21:17)
--- NOTE | 2018-06-07 13:02 | CP.PCM.PN ---
Subjective - Date & Time of Evaluation Date of Evaluation: 06/07/18 Time of Evaluation: 13:01 - Subjective Subjective: CLINICALLY IMPROVING R KNEE PAIN IMPROVING Objective - Vital Signs/Intake and Output Vital Signs (last 24 hours): Temp Pulse Resp BP Pulse Ox 97.0 F L 115 H 20 109/75 94 L 06/07/18 07:48 06/07/18 09:03 06/07/18 07:48 06/07/18 09:03 06/07/18 07:48 - Medications Medications: Current Medications Acetaminophen (Tylenol 325mg Tab) 650 mg PO Q4 PRN PRN Reason: Fever of 100.6 F and Above Aspirin (Aspirin Chewable) 81 mg PO DAILY [facility] Last Admin: 06/07/18 09:03 Dose: 81 mg Atorvastatin Calcium (Lipitor) 10 mg PO HS [facility] Last Admin: 06/06/18 21:04 Dose: 10 mg Celecoxib (Celebrex) 100 mg PO Q12 [facility] Last Admin: 06/07/18 09:03 Dose: 100 mg Docusate Sodium (Colace) 100 mg PO BID [facility] Last Admin: 06/07/18 09:02 Dose: 100 mg Enoxaparin Sodium (Lovenox) 40 mg SC DAILY [facility] PRN Reason: Protocol Last Admin: 06/06/18 08:09 Dose: 40 mg Ferrous Sulfate (Feosol) 325 mg PO BID [facility] Last Admin: 06/07/18 09:04 Dose: 325 mg Folic Acid (Folic Acid) 1 mg PO DAILY [facility] Last Admin: 06/07/18 09:04 Dose: 1 mg Gabapentin (Neurontin) 600 mg PO TID [facility] Last Admin: 06/07/18 09:02 Dose: 600 mg Losartan Potassium (Cozaar) 25 mg PO DAILY [facility] Last Admin: 06/07/18 09:03 Dose: 25 mg Ondansetron HCl (Zofran Inj) 4 mg IVP Q4 PRN PRN Reason: Nausea/Vomiting Oxycodone HCl (Oxycodone Immediate Release Tab) 10 mg PO Q4H PRN PRN Reason: Pain, moderate (4-7) Last Admin: 06/07/18 09:04 Dose: 10 mg Oxycodone HCl (Oxycontin Extended Release Tab) 20 mg PO Q8@0500,1300,2100 [facility] Last Admin: 06/07/18 05:01 Dose: 20 mg - Labs Labs: 06/06/18 05:45 06/06/18 05:45 - Constitutional Appears: Well - Head Exam Head Exam: ATRAUMATIC, NORMAL INSPECTION, NORMOCEPHALIC - Eye Exam Eye Exam: EOMI, Normal appearance, PERRL Pupil Exam: NORMAL ACCOMODATION, PERRL - ENT Exam ENT Exam: Mucous Membranes Moist, Normal Exam - Neck Exam Neck Exam: Full ROM, Normal Inspection. absent: Lymphadenopathy - Respiratory Exam Respiratory Exam: Clear to Ausculation Bilateral, NORMAL BREATHING PATTERN - Cardiovascular Exam Cardiovascular Exam: REGULAR RHYTHM, +S1, +S2. absent: Murmur - GI/Abdominal Exam GI & Abdominal Exam: Soft, Normal Bowel Sounds. absent: Tenderness - Rectal Exam Rectal Exam: NORMAL INSPECTION - Extremities Exam Extremities Exam: Full ROM, Normal Capillary Refill, Normal Inspection, Tenderness. absent: Joint Swelling, Pedal Edema Additional comments: R KNEE TENDERNESS - Back Exam Back Exam: NORMAL INSPECTION - Neurological Exam Neurological Exam: Alert, Awake, CN II-XII Intact, Normal Gait, Oriented x3 - Psychiatric Exam Psychiatric exam: Normal Affect, Normal Mood - Skin Skin Exam: Dry, Intact, Normal Color, Warm Assessment and Plan - Assessment and Plan (Free Text) Assessment: S/P R KNEE SURGERY ARTHRITIS HTN Plan: CONTINUE PRESENT RX
[2018-06-07] MEDS: Enoxaparin 40 mg Syringe SC SCH (13:08)
[2018-06-08] MEDS: oxyCODONE 10 mg Immediate Release Tab PO PRN ×3 (03:45→17:04)
[2018-06-08] MEDS: oxyCODONE 20 mg ER Tab (oxyCONTIN) PO SCH ×3 (05:21→21:01)
[2018-06-08] MEDS: Enoxaparin 40 mg Syringe SC SCH (08:38)
--- NOTE | 2018-06-08 10:50 | CP.PCM.PN ---
Subjective - Date & Time of Evaluation Date of Evaluation: 06/08/18 Time of Evaluation: 10:50 - Subjective Subjective: r knee pain less able to bend knee edema less Objective - Vital Signs/Intake and Output Vital Signs (last 24 hours): Temp Pulse Resp BP Pulse Ox 99.0 F 114 H 20 129/69 93 L 06/08/18 07:54 06/08/18 08:47 06/08/18 07:54 06/08/18 08:47 06/08/18 07:54 - Medications Medications: Current Medications Acetaminophen (Tylenol 325mg Tab) 650 mg PO Q4 PRN PRN Reason: Fever of 100.6 F and Above Aspirin (Aspirin Chewable) 81 mg PO DAILY [facility] Last Admin: 06/08/18 08:39 Dose: 81 mg Atorvastatin Calcium (Lipitor) 10 mg PO HS [facility] Last Admin: 06/07/18 21:17 Dose: 10 mg Celecoxib (Celebrex) 100 mg PO Q12 [facility] Last Admin: 06/08/18 08:38 Dose: 100 mg Docusate Sodium (Colace) 100 mg PO BID [facility] Last Admin: 06/08/18 08:40 Dose: 100 mg Enoxaparin Sodium (Lovenox) 40 mg SC DAILY [facility] PRN Reason: Protocol Last Admin: 06/08/18 08:38 Dose: 40 mg Ferrous Sulfate (Feosol) 325 mg PO BID [facility] Last Admin: 06/08/18 08:40 Dose: 325 mg Folic Acid (Folic Acid) 1 mg PO DAILY [facility] Last Admin: 06/08/18 08:40 Dose: 1 mg Gabapentin (Neurontin) 600 mg PO TID [facility] Last Admin: 06/08/18 08:41 Dose: 600 mg Losartan Potassium (Cozaar) 25 mg PO DAILY [facility] Last Admin: 06/08/18 08:47 Dose: 25 mg Ondansetron HCl (Zofran Inj) 4 mg IVP Q4 PRN PRN Reason: Nausea/Vomiting Oxycodone HCl (Oxycodone Immediate Release Tab) 10 mg PO Q4H PRN PRN Reason: Pain, moderate (4-7) Last Admin: 06/08/18 08:39 Dose: 10 mg Oxycodone HCl (Oxycontin Extended Release Tab) 20 mg PO Q8@0500,1300,2100 [facility] Last Admin: 06/08/18 05:21 Dose: 20 mg - Labs Labs: 06/06/18 05:45 06/06/18 05:45 - Constitutional Appears: No Acute Distress - Head Exam Head Exam: ATRAUMATIC, NORMAL INSPECTION, NORMOCEPHALIC - Eye Exam Eye Exam: EOMI, Normal appearance, PERRL Pupil Exam: NORMAL ACCOMODATION, PERRL - ENT Exam ENT Exam: Mucous Membranes Moist, Normal Exam - Neck Exam Neck Exam: Full ROM, Normal Inspection. absent: Lymphadenopathy - Respiratory Exam Respiratory Exam: Clear to Ausculation Bilateral, NORMAL BREATHING PATTERN - Cardiovascular Exam Cardiovascular Exam: REGULAR RHYTHM, +S1, +S2. absent: Murmur - GI/Abdominal Exam GI & Abdominal Exam: Soft, Normal Bowel Sounds. absent: Tenderness - Rectal Exam Rectal Exam: NORMAL INSPECTION - Extremities Exam Extremities Exam: Full ROM, Normal Capillary Refill, Normal Inspection. absent : Joint Swelling, Pedal Edema Additional comments: less r knee edema/tenderness - Back Exam Back Exam: NORMAL INSPECTION - Neurological Exam Neurological Exam: Alert, Awake, CN II-XII Intact, Normal Gait, Oriented x3 - Psychiatric Exam Psychiatric exam: Normal Affect, Normal Mood - Skin Skin Exam: Dry, Intact, Normal Color, Warm Assessment and Plan - Assessment and Plan (Free Text) Assessment: s/p r tkr htn Plan: continue present rx
--- NOTE | 2018-06-08 11:25 | CP.PCM.PN ---
Subjective - Date & Time of Evaluation Date of Evaluation: 06/08/18 Time of Evaluation: 10:30 - Subjective Subjective: S- pt with MINIMAL post op discomfort/relaex and comfortable at time of encounter Objective - Vital Signs/Intake and Output Vital Signs (last 24 hours): Temp Pulse Resp BP Pulse Ox 99.0 F 114 H 20 129/69 93 L 06/08/18 07:54 06/08/18 08:47 06/08/18 07:54 06/08/18 08:47 06/08/18 07:54 - Medications Medications: Current Medications Acetaminophen (Tylenol 325mg Tab) 650 mg PO Q4 PRN PRN Reason: Fever of 100.6 F and Above Aspirin (Aspirin Chewable) 81 mg PO DAILY [facility] Last Admin: 06/08/18 08:39 Dose: 81 mg Atorvastatin Calcium (Lipitor) 10 mg PO HS [facility] Last Admin: 06/07/18 21:17 Dose: 10 mg Celecoxib (Celebrex) 100 mg PO Q12 [facility] Last Admin: 06/08/18 08:38 Dose: 100 mg Docusate Sodium (Colace) 100 mg PO BID [facility] Last Admin: 06/08/18 08:40 Dose: 100 mg Enoxaparin Sodium (Lovenox) 40 mg SC DAILY [facility] PRN Reason: Protocol Last Admin: 06/08/18 08:38 Dose: 40 mg Ferrous Sulfate (Feosol) 325 mg PO BID [facility] Last Admin: 06/08/18 08:40 Dose: 325 mg Folic Acid (Folic Acid) 1 mg PO DAILY [facility] Last Admin: 06/08/18 08:40 Dose: 1 mg Gabapentin (Neurontin) 600 mg PO TID [facility] Last Admin: 06/08/18 08:41 Dose: 600 mg Losartan Potassium (Cozaar) 25 mg PO DAILY [facility] Last Admin: 06/08/18 08:47 Dose: 25 mg Ondansetron HCl (Zofran Inj) 4 mg IVP Q4 PRN PRN Reason: Nausea/Vomiting Oxycodone HCl (Oxycodone Immediate Release Tab) 10 mg PO Q4H PRN PRN Reason: Pain, moderate (4-7) Last Admin: 06/08/18 08:39 Dose: 10 mg Oxycodone HCl (Oxycontin Extended Release Tab) 20 mg PO Q8@0500,1300,2100 [facility] Last Admin: 06/08/18 05:21 Dose: 20 mg - Labs Labs: 06/06/18 05:45 06/06/18 05:45 - Additional Findings Additional findings: Objective systemic- wnl usculoskektal stance/gait- dferred R knee wound benign N/V intact pt orthopedcially stable no evidence for thromboembolic disease Assessment and Plan - Assessment and Plan (Free Text) Assessment: A- successful RIGHT TKR P- full weight bearing CPM orthopedically stable
[2018-06-09] MEDS: oxyCODONE 10 mg Immediate Release Tab PO PRN ×3 (01:23→17:03)
[2018-06-09] MEDS: oxyCODONE 20 mg ER Tab (oxyCONTIN) PO SCH ×3 (05:29→20:55)
[2018-06-09] MEDS: Enoxaparin 40 mg Syringe SC SCH (08:44)
--- NOTE | 2018-06-09 10:48 | CP.PCM.PN ---
Subjective - Date & Time of Evaluation Date of Evaluation: 06/09/18 Time of Evaluation: 10:48 - Subjective Subjective: C/O R KNEE PAIN TODAY NO CHEST PAINS/SOB Objective - Vital Signs/Intake and Output Vital Signs (last 24 hours): Temp Pulse Resp BP Pulse Ox 97.1 F L 99 H 20 120/71 95 06/09/18 07:48 06/09/18 08:42 06/09/18 07:48 06/09/18 08:42 06/09/18 07:48 - Medications Medications: Current Medications Acetaminophen (Tylenol 325mg Tab) 650 mg PO Q4 PRN PRN Reason: Fever of 100.6 F and Above Aspirin (Aspirin Chewable) 81 mg PO DAILY [facility] Last Admin: 06/09/18 08:44 Dose: 81 mg Atorvastatin Calcium (Lipitor) 10 mg PO HS [facility] Last Admin: 06/08/18 21:01 Dose: 10 mg Celecoxib (Celebrex) 100 mg PO Q12 [facility] Last Admin: 06/09/18 08:43 Dose: 100 mg Docusate Sodium (Colace) 100 mg PO BID [facility] Last Admin: 06/09/18 08:43 Dose: 100 mg Enoxaparin Sodium (Lovenox) 40 mg SC DAILY [facility] PRN Reason: Protocol Last Admin: 06/09/18 08:44 Dose: 40 mg Ferrous Sulfate (Feosol) 325 mg PO BID [facility] Last Admin: 06/09/18 08:43 Dose: 325 mg Folic Acid (Folic Acid) 1 mg PO DAILY [facility] Last Admin: 06/09/18 08:43 Dose: 1 mg Gabapentin (Neurontin) 600 mg PO TID [facility] Last Admin: 06/09/18 08:43 Dose: 600 mg Losartan Potassium (Cozaar) 25 mg PO DAILY [facility] Last Admin: 06/09/18 08:42 Dose: 25 mg Ondansetron HCl (Zofran Inj) 4 mg IVP Q4 PRN PRN Reason: Nausea/Vomiting Oxycodone HCl (Oxycodone Immediate Release Tab) 10 mg PO Q4H PRN PRN Reason: Pain, moderate (4-7) Last Admin: 06/09/18 08:42 Dose: 10 mg Oxycodone HCl (Oxycontin Extended Release Tab) 20 mg PO Q8@0500,1300,2100 [facility] Last Admin: 06/09/18 05:29 Dose: 20 mg - Labs Labs: 06/06/18 05:45 06/06/18 05:45 - Constitutional Appears: In Acute Distress - Head Exam Head Exam: ATRAUMATIC, NORMAL INSPECTION, NORMOCEPHALIC - Eye Exam Eye Exam: EOMI, Normal appearance, PERRL Pupil Exam: NORMAL ACCOMODATION, PERRL - ENT Exam ENT Exam: Mucous Membranes Moist, Normal Exam - Neck Exam Neck Exam: Full ROM, Normal Inspection. absent: Lymphadenopathy - Respiratory Exam Respiratory Exam: Clear to Ausculation Bilateral, NORMAL BREATHING PATTERN - Cardiovascular Exam Cardiovascular Exam: REGULAR RHYTHM, +S1, +S2. absent: Murmur - GI/Abdominal Exam GI & Abdominal Exam: Soft, Normal Bowel Sounds. absent: Tenderness - Rectal Exam Rectal Exam: NORMAL INSPECTION - Extremities Exam Extremities Exam: Full ROM, Normal Capillary Refill, Normal Inspection, Tenderness. absent: Joint Swelling, Pedal Edema - Back Exam Back Exam: NORMAL INSPECTION - Neurological Exam Neurological Exam: Alert, Awake, CN II-XII Intact, Normal Gait, Oriented x3 - Psychiatric Exam Psychiatric exam: Normal Affect, Normal Mood - Skin Skin Exam: Dry, Intact, Normal Color, Warm Assessment and Plan - Assessment and Plan (Free Text) Assessment: S/P R TKR HTN ARTHRITIS Plan: CONTINUE CURRENT RX ANALGESIC RX
[2018-06-10] MEDS: oxyCODONE 10 mg Immediate Release Tab PO PRN ×2 (01:07→08:22)
[2018-06-10] MEDS: oxyCODONE 20 mg ER Tab (oxyCONTIN) PO SCH ×3 (05:03→20:33)
--- NOTE | 2018-06-10 07:15 | CP.PCM.PN ---
Subjective - Date & Time of Evaluation Date of Evaluation: 06/10/18 Time of Evaluation: 07:14 - Subjective Subjective: Patient seen and examined at bedside comfortable. Pain at 4-5/10, well controlled with oral pain meds. Tolerating CPM and PT well. No new complaints. Objective - Vital Signs/Intake and Output Vital Signs (last 24 hours): Temp Pulse Resp BP Pulse Ox 97.7 F 101 H 20 131/65 98 06/09/18 19:54 06/09/18 19:54 06/09/18 19:54 06/09/18 19:54 06/09/18 19:54 - Medications Medications: Current Medications Acetaminophen (Tylenol 325mg Tab) 650 mg PO Q4 PRN PRN Reason: Fever of 100.6 F and Above Aspirin (Aspirin Chewable) 81 mg PO DAILY [facility] Last Admin: 06/09/18 08:44 Dose: 81 mg Atorvastatin Calcium (Lipitor) 10 mg PO HS [facility] Last Admin: 06/09/18 20:59 Dose: 10 mg Celecoxib (Celebrex) 100 mg PO Q12 [facility] Last Admin: 06/09/18 20:58 Dose: 100 mg Docusate Sodium (Colace) 100 mg PO BID [facility] Last Admin: 06/09/18 17:03 Dose: 100 mg Enoxaparin Sodium (Lovenox) 40 mg SC DAILY [facility] PRN Reason: Protocol Last Admin: 06/09/18 08:44 Dose: 40 mg Ferrous Sulfate (Feosol) 325 mg PO BID [facility] Last Admin: 06/09/18 17:03 Dose: 325 mg Folic Acid (Folic Acid) 1 mg PO DAILY [facility] Last Admin: 06/09/18 08:43 Dose: 1 mg Gabapentin (Neurontin) 600 mg PO TID [facility] Last Admin: 06/09/18 17:03 Dose: 600 mg Losartan Potassium (Cozaar) 25 mg PO DAILY [facility] Last Admin: 06/09/18 08:42 Dose: 25 mg Ondansetron HCl (Zofran Inj) 4 mg IVP Q4 PRN PRN Reason: Nausea/Vomiting Oxycodone HCl (Oxycodone Immediate Release Tab) 10 mg PO Q4H PRN PRN Reason: Pain, moderate (4-7) Last Admin: 06/10/18 01:07 Dose: 10 mg Oxycodone HCl (Oxycontin Extended Release Tab) 20 mg PO Q8@0500,1300,2100 [facility] Last Admin: 06/10/18 05:03 Dose: 20 mg - Labs Labs: 06/06/18 05:45 06/06/18 05:45 - Extremities Exam Additional comments: R knee: BAO CDI swelling improving sensation intact SP/DP/TN motor intact EHL/FHL/TA/G pedal pulses intact comps soft NT Assessment and Plan (1) Status post right knee replacement Assessment & Plan: POD# 7 s/p R TKA -Maintain BAO dressing -PT/OT FWB -CPM as per order -DVT ppx -orthopedically stable -above d/w Dr. Plasencia in agreement Status: Acute
[2018-06-10] MEDS: Enoxaparin 40 mg Syringe SC SCH (08:24)
--- NOTE | 2018-06-10 08:46 | CP.PCM.PN ---
Subjective - Date & Time of Evaluation Date of Evaluation: 06/10/18 Time of Evaluation: 08:45 - Subjective Subjective: NO COMPLAINTS EXCEPT FOR R KNEE PAIN Objective - Vital Signs/Intake and Output Vital Signs (last 24 hours): Temp Pulse Resp BP Pulse Ox 97.5 F L 90 20 123/79 96 06/10/18 07:39 06/10/18 08:25 06/10/18 07:39 06/10/18 08:25 06/10/18 07:39 - Medications Medications: Current Medications Acetaminophen (Tylenol 325mg Tab) 650 mg PO Q4 PRN PRN Reason: Fever of 100.6 F and Above Aspirin (Aspirin Chewable) 81 mg PO DAILY [facility] Last Admin: 06/10/18 08:22 Dose: 81 mg Atorvastatin Calcium (Lipitor) 10 mg PO HS [facility] Last Admin: 06/09/18 20:59 Dose: 10 mg Celecoxib (Celebrex) 100 mg PO Q12 [facility] Last Admin: 06/10/18 08:22 Dose: 100 mg Docusate Sodium (Colace) 100 mg PO BID [facility] Last Admin: 06/10/18 08:23 Dose: 100 mg Enoxaparin Sodium (Lovenox) 40 mg SC DAILY [facility] PRN Reason: Protocol Last Admin: 06/10/18 08:24 Dose: 40 mg Ferrous Sulfate (Feosol) 325 mg PO BID [facility] Last Admin: 06/10/18 08:24 Dose: Not Given Folic Acid (Folic Acid) 1 mg PO DAILY [facility] Last Admin: 06/10/18 08:23 Dose: 1 mg Gabapentin (Neurontin) 600 mg PO TID [facility] Last Admin: 06/10/18 08:24 Dose: 600 mg Losartan Potassium (Cozaar) 25 mg PO DAILY [facility] Last Admin: 06/10/18 08:25 Dose: 25 mg Ondansetron HCl (Zofran Inj) 4 mg IVP Q4 PRN PRN Reason: Nausea/Vomiting Oxycodone HCl (Oxycodone Immediate Release Tab) 10 mg PO Q4H PRN PRN Reason: Pain, moderate (4-7) Last Admin: 06/10/18 08:22 Dose: 10 mg Oxycodone HCl (Oxycontin Extended Release Tab) 20 mg PO Q8@0500,1300,2100 [facility] Last Admin: 06/10/18 05:03 Dose: 20 mg - Labs Labs: 07/26/18 05:45 06/06/18 05:45 - Constitutional Appears: No Acute Distress - Head Exam Head Exam: ATRAUMATIC, NORMAL INSPECTION, NORMOCEPHALIC - Eye Exam Eye Exam: EOMI, Normal appearance, PERRL Pupil Exam: NORMAL ACCOMODATION, PERRL - ENT Exam ENT Exam: Mucous Membranes Moist, Normal Exam - Neck Exam Neck Exam: Full ROM, Normal Inspection. absent: Lymphadenopathy - Respiratory Exam Respiratory Exam: Clear to Ausculation Bilateral, NORMAL BREATHING PATTERN - Cardiovascular Exam Cardiovascular Exam: REGULAR RHYTHM, +S1, +S2. absent: Murmur - GI/Abdominal Exam GI & Abdominal Exam: Soft, Normal Bowel Sounds. absent: Tenderness - Rectal Exam Rectal Exam: NORMAL INSPECTION - Extremities Exam Extremities Exam: Full ROM, Normal Capillary Refill, Normal Inspection, Pedal Edema. absent: Joint Swelling Additional comments: R KNEE SURGICAL SITE CLEAN AND HEALING - Back Exam Back Exam: NORMAL INSPECTION - Neurological Exam Neurological Exam: Alert, Awake, CN II-XII Intact, Normal Gait, Oriented x3 - Psychiatric Exam Psychiatric exam: Normal Affect, Normal Mood - Skin Skin Exam: Dry, Intact, Normal Color, Warm Assessment and Plan - Assessment and Plan (Free Text) Assessment: S/P R TKR HTN Plan: CONTINUE SAME RX
[2018-06-11] MEDS: oxyCODONE 10 mg Immediate Release Tab PO PRN ×4 (00:41→18:52)
[2018-06-11] MEDS: oxyCODONE 20 mg ER Tab (oxyCONTIN) PO SCH ×3 (04:50→21:04)
--- NOTE | 2018-06-11 08:03 | CP.PCM.PN ---
Subjective - Date & Time of Evaluation Date of Evaluation: 06/11/18 Time of Evaluation: 08:03 - Subjective Subjective: STILL HAS R LEG/KNEE PAIN BUT IMPROVING Objective - Vital Signs/Intake and Output Vital Signs (last 24 hours): Temp Pulse Resp BP Pulse Ox 97.5 F L 85 20 121/71 100 06/11/18 07:58 06/11/18 07:58 06/11/18 07:58 06/11/18 07:58 06/11/18 07:58 - Medications Medications: Current Medications Acetaminophen (Tylenol 325mg Tab) 650 mg PO Q4 PRN PRN Reason: Fever of 100.6 F and Above Aspirin (Aspirin Chewable) 81 mg PO DAILY [facility] Last Admin: 06/10/18 08:22 Dose: 81 mg Atorvastatin Calcium (Lipitor) 10 mg PO HS [facility] Last Admin: 06/10/18 21:45 Dose: 10 mg Celecoxib (Celebrex) 100 mg PO Q12 [facility] Last Admin: 06/10/18 20:34 Dose: 100 mg Docusate Sodium (Colace) 100 mg PO BID [facility] Last Admin: 06/10/18 16:42 Dose: 100 mg Enoxaparin Sodium (Lovenox) 40 mg SC DAILY [facility] PRN Reason: Protocol Last Admin: 06/10/18 08:24 Dose: 40 mg Ferrous Sulfate (Feosol) 325 mg PO BID [facility] Last Admin: 06/10/18 16:46 Dose: 325 mg Folic Acid (Folic Acid) 1 mg PO DAILY [facility] Last Admin: 06/10/18 08:23 Dose: 1 mg Gabapentin (Neurontin) 600 mg PO TID [facility] Last Admin: 06/10/18 16:43 Dose: 600 mg Losartan Potassium (Cozaar) 25 mg PO DAILY [facility] Last Admin: 06/10/18 08:25 Dose: 25 mg Ondansetron HCl (Zofran Inj) 4 mg IVP Q4 PRN PRN Reason: Nausea/Vomiting Oxycodone HCl (Oxycodone Immediate Release Tab) 10 mg PO Q4H PRN PRN Reason: Pain, moderate (4-7) Last Admin: 06/11/18 00:41 Dose: 10 mg Oxycodone HCl (Oxycontin Extended Release Tab) 20 mg PO Q8@0500,1300,2100 [facility] Last Admin: 06/11/18 04:50 Dose: 20 mg - Labs Labs: 06/06/18 05:45 06/06/18 05:45 - Constitutional Appears: No Acute Distress - Head Exam Head Exam: ATRAUMATIC, NORMAL INSPECTION, NORMOCEPHALIC - Eye Exam Eye Exam: EOMI, Normal appearance, PERRL Pupil Exam: NORMAL ACCOMODATION, PERRL - ENT Exam ENT Exam: Mucous Membranes Moist, Normal Exam - Neck Exam Neck Exam: Full ROM, Normal Inspection. absent: Lymphadenopathy - Respiratory Exam Respiratory Exam: Clear to Ausculation Bilateral, NORMAL BREATHING PATTERN - Cardiovascular Exam Cardiovascular Exam: REGULAR RHYTHM, +S1, +S2. absent: Murmur - GI/Abdominal Exam GI & Abdominal Exam: Soft, Normal Bowel Sounds. absent: Tenderness - Rectal Exam Rectal Exam: NORMAL INSPECTION - Extremities Exam Extremities Exam: Full ROM, Normal Capillary Refill, Normal Inspection, Tenderness. absent: Joint Swelling, Pedal Edema Additional comments: SURGICAL SITE--R KNEE HEALED--DRAIN IN PLACE - Back Exam Back Exam: NORMAL INSPECTION - Neurological Exam Neurological Exam: Abnormal Gait, Alert, Awake, CN II-XII Intact, Oriented x3 - Psychiatric Exam Psychiatric exam: Normal Affect, Normal Mood - Skin Skin Exam: Dry, Intact, Normal Color, Warm Assessment and Plan - Assessment and Plan (Free Text) Assessment: S/P R TKR ARTHRITIS HTN Plan: CONTINUE PT/OT
[2018-06-11] MEDS: Enoxaparin 40 mg Syringe SC SCH (08:13)
--- NOTE | 2018-06-11 10:08 | CP.PCM.PN ---
Subjective - Date & Time of Evaluation Date of Evaluation: 06/11/18 Time of Evaluation: 09:45 - Subjective Subjective: Patient seen and examined at bedside comfortable. Pain is well controlled. No new complaints. Objective - Vital Signs/Intake and Output Vital Signs (last 24 hours): Temp Pulse Resp BP Pulse Ox 97.5 F L 85 20 121/71 100 06/11/18 07:58 06/11/18 08:13 06/11/18 07:58 06/11/18 08:13 06/11/18 07:58 - Medications Medications: Current Medications Acetaminophen (Tylenol 325mg Tab) 650 mg PO Q4 PRN PRN Reason: Fever of 100.6 F and Above Aspirin (Aspirin Chewable) 81 mg PO DAILY [facility] Last Admin: 06/11/18 08:12 Dose: 81 mg Atorvastatin Calcium (Lipitor) 10 mg PO HS [facility] Last Admin: 06/10/18 21:45 Dose: 10 mg Celecoxib (Celebrex) 100 mg PO Q12 [facility] Last Admin: 06/11/18 08:12 Dose: 100 mg Docusate Sodium (Colace) 100 mg PO BID [facility] Last Admin: 06/11/18 08:12 Dose: 100 mg Enoxaparin Sodium (Lovenox) 40 mg SC DAILY [facility] PRN Reason: Protocol Last Admin: 06/11/18 08:13 Dose: 40 mg Ferrous Sulfate (Feosol) 325 mg PO BID [facility] Last Admin: 06/11/18 08:13 Dose: 325 mg Folic Acid (Folic Acid) 1 mg PO DAILY [facility] Last Admin: 06/11/18 08:13 Dose: 1 mg Gabapentin (Neurontin) 600 mg PO TID [facility] Last Admin: 06/11/18 08:14 Dose: 600 mg Losartan Potassium (Cozaar) 25 mg PO DAILY [facility] Last Admin: 06/11/18 08:13 Dose: 25 mg Ondansetron HCl (Zofran Inj) 4 mg IVP Q4 PRN PRN Reason: Nausea/Vomiting Oxycodone HCl (Oxycodone Immediate Release Tab) 10 mg PO Q4H PRN PRN Reason: Pain, moderate (4-7) Last Admin: 06/11/18 08:14 Dose: 10 mg Oxycodone HCl (Oxycontin Extended Release Tab) 20 mg PO Q8@0500,1300,2100 [facility] Last Admin: 06/11/18 04:50 Dose: 20 mg - Labs Labs: 06/06/18 05:45 06/06/18 05:45 - Extremities Exam Additional comments: R knee: BAO CDI, BAO removed revealing wound CDI with crystal swelling continues to improve sensation intact SP/DP/TN motor intact EHL/FHL/TA/G pedal pulses intact comps soft NT Assessment and Plan (1) Status post right knee replacement Assessment & Plan: POD# 8 s/p R TKA -Dry opsite dressing applied -PT/OT FWB -CPM as per order -DVT ppx -orthopedically stable -above d/w Dr. Plasencia in agreement Status: Acute
[2018-06-12] MEDS: oxyCODONE 10 mg Immediate Release Tab PO PRN ×3 (01:03→14:23)
[2018-06-12] MEDS: oxyCODONE 20 mg ER Tab (oxyCONTIN) PO SCH ×3 (04:57→20:07)
[2018-06-12] MEDS: Enoxaparin 40 mg Syringe SC SCH (08:34)
--- NOTE | 2018-06-12 11:15 | CP.PCM.PN ---
Subjective - Date & Time of Evaluation Date of Evaluation: 06/12/18 Time of Evaluation: 11:15 - Subjective Subjective: C/O R KNEE PAIN TODAY R KNEE DRAIN REMOVED Objective - Vital Signs/Intake and Output Vital Signs (last 24 hours): Temp Pulse Resp BP Pulse Ox 97.1 F L 82 20 110/76 94 L 06/12/18 07:47 06/12/18 08:33 06/12/18 07:47 06/12/18 08:33 06/12/18 07:47 - Medications Medications: Current Medications Acetaminophen (Tylenol 325mg Tab) 650 mg PO Q4 PRN PRN Reason: Fever of 100.6 F and Above Aspirin (Aspirin Chewable) 81 mg PO DAILY [facility] Last Admin: 06/12/18 08:32 Dose: 81 mg Atorvastatin Calcium (Lipitor) 10 mg PO HS [facility] Last Admin: 06/11/18 21:04 Dose: 10 mg Celecoxib (Celebrex) 100 mg PO Q12 [facility] Last Admin: 06/12/18 08:32 Dose: 100 mg Docusate Sodium (Colace) 100 mg PO BID [facility] Last Admin: 06/12/18 08:33 Dose: 100 mg Enoxaparin Sodium (Lovenox) 40 mg SC DAILY [facility] PRN Reason: Protocol Last Admin: 06/12/18 08:34 Dose: 40 mg Ferrous Sulfate (Feosol) 325 mg PO BID [facility] Last Admin: 06/12/18 08:34 Dose: 325 mg Folic Acid (Folic Acid) 1 mg PO DAILY [facility] Last Admin: 06/12/18 08:34 Dose: 1 mg Gabapentin (Neurontin) 600 mg PO TID [facility] Last Admin: 06/12/18 08:34 Dose: 600 mg Losartan Potassium (Cozaar) 25 mg PO DAILY [facility] Last Admin: 06/12/18 08:33 Dose: 25 mg Ondansetron HCl (Zofran Inj) 4 mg IVP Q4 PRN PRN Reason: Nausea/Vomiting Oxycodone HCl (Oxycodone Immediate Release Tab) 10 mg PO Q4H PRN PRN Reason: Pain, moderate (4-7) Last Admin: 06/12/18 07:18 Dose: 10 mg Oxycodone HCl (Oxycontin Extended Release Tab) 20 mg PO Q8@0500,1300,2100 [facility] Last Admin: 06/12/18 04:57 Dose: 20 mg - Labs Labs: 06/06/18 05:45 06/06/18 05:45 - Constitutional Appears: In Acute Distress - Head Exam Head Exam: ATRAUMATIC, NORMAL INSPECTION, NORMOCEPHALIC - Eye Exam Eye Exam: EOMI, Normal appearance, PERRL Pupil Exam: NORMAL ACCOMODATION, PERRL - ENT Exam ENT Exam: Mucous Membranes Moist, Normal Exam - Neck Exam Neck Exam: Full ROM, Normal Inspection. absent: Lymphadenopathy - Respiratory Exam Respiratory Exam: Clear to Ausculation Bilateral, NORMAL BREATHING PATTERN - Cardiovascular Exam Cardiovascular Exam: REGULAR RHYTHM, +S1, +S2. absent: Murmur - GI/Abdominal Exam GI & Abdominal Exam: Soft, Normal Bowel Sounds. absent: Tenderness - Rectal Exam Rectal Exam: NORMAL INSPECTION - Extremities Exam Extremities Exam: Full ROM, Normal Capillary Refill, Normal Inspection, Tenderness. absent: Joint Swelling, Pedal Edema - Back Exam Back Exam: NORMAL INSPECTION - Neurological Exam Neurological Exam: Alert, Awake, CN II-XII Intact, Normal Gait, Oriented x3 - Psychiatric Exam Psychiatric exam: Normal Affect, Normal Mood - Skin Skin Exam: Dry, Intact, Normal Color, Warm Assessment and Plan - Assessment and Plan (Free Text) Assessment: S/P R TKR Plan: CONTINUE CURRENT RX
--- NOTE | 2018-06-12 14:38 | CP.PCM.PN ---
Subjective - Date & Time of Evaluation Date of Evaluation: 06/12/18 Time of Evaluation: 14:37 - Subjective Subjective: Patient seen and examined at bedside. Pain is moderate today. He states this is due to the increased activity in PT today. No other complaints. Objective - Vital Signs/Intake and Output Vital Signs (last 24 hours): Temp Pulse Resp BP Pulse Ox 97.1 F L 82 20 110/76 94 L 06/12/18 07:47 06/12/18 08:33 06/12/18 07:47 06/12/18 08:33 06/12/18 07:47 - Medications Medications: Current Medications Acetaminophen (Tylenol 325mg Tab) 650 mg PO Q4 PRN PRN Reason: Fever of 100.6 F and Above Aspirin (Aspirin Chewable) 81 mg PO DAILY [facility] Last Admin: 06/12/18 08:32 Dose: 81 mg Atorvastatin Calcium (Lipitor) 10 mg PO HS [facility] Last Admin: 06/11/18 21:04 Dose: 10 mg Celecoxib (Celebrex) 100 mg PO Q12 [facility] Last Admin: 06/12/18 08:32 Dose: 100 mg Docusate Sodium (Colace) 100 mg PO BID [facility] Last Admin: 06/12/18 08:33 Dose: 100 mg Enoxaparin Sodium (Lovenox) 40 mg SC DAILY [facility] PRN Reason: Protocol Last Admin: 06/12/18 08:34 Dose: 40 mg Ferrous Sulfate (Feosol) 325 mg PO BID [facility] Last Admin: 06/12/18 08:34 Dose: 325 mg Folic Acid (Folic Acid) 1 mg PO DAILY [facility] Last Admin: 06/12/18 08:34 Dose: 1 mg Gabapentin (Neurontin) 600 mg PO TID [facility] Last Admin: 06/12/18 13:06 Dose: 600 mg Losartan Potassium (Cozaar) 25 mg PO DAILY [facility] Last Admin: 06/12/18 08:33 Dose: 25 mg Ondansetron HCl (Zofran Inj) 4 mg IVP Q4 PRN PRN Reason: Nausea/Vomiting Oxycodone HCl (Oxycodone Immediate Release Tab) 10 mg PO Q4H PRN PRN Reason: Pain, moderate (4-7) Last Admin: 06/12/18 14:23 Dose: 10 mg Oxycodone HCl (Oxycontin Extended Release Tab) 20 mg PO Q8@0500,1300,2100 [facility] Last Admin: 06/12/18 13:03 Dose: 20 mg - Labs Labs: 06/06/18 05:45 06/06/18 05:45 - Extremities Exam Additional comments: R knee: Dressings with mild dry blood distally, dressings removed revealing wound intact with crystal, dry blood at distal aspect of wound swelling continues to improve sensation intact SP/DP/TN motor intact EHL/FHL/TA/G pedal pulses intact comps soft NT Assessment and Plan (1) Status post right knee replacement Assessment & Plan: POD# 9 s/p R TKA -Wet to dry dressings applied, to be changed daily until drainage ceases -PT/OT FWB -CPM as per order -DVT ppx -orthopedically stable -above d/w Dr. Plasencia in agreement Status: Acute
[2018-06-13] MEDS: oxyCODONE 10 mg Immediate Release Tab PO PRN ×3 (00:20→16:56)
[2018-06-13] MEDS: oxyCODONE 20 mg ER Tab (oxyCONTIN) PO SCH ×3 (04:31→21:07)
--- NOTE | 2018-06-13 08:04 | CP.PCM.PN ---
Subjective - Date & Time of Evaluation Date of Evaluation: 06/13/18 Time of Evaluation: 08:04 - Subjective Subjective: R KNEE PAIN IMPROVING Objective - Vital Signs/Intake and Output Vital Signs (last 24 hours): Temp Pulse Resp BP Pulse Ox 97.2 F L 83 20 122/73 97 06/12/18 21:12 06/12/18 21:12 06/12/18 21:12 06/12/18 21:12 06/12/18 21:12 - Medications Medications: Current Medications Acetaminophen (Tylenol 325mg Tab) 650 mg PO Q4 PRN PRN Reason: Fever of 100.6 F and Above Aspirin (Aspirin Chewable) 81 mg PO DAILY [facility] Last Admin: 06/12/18 08:32 Dose: 81 mg Atorvastatin Calcium (Lipitor) 10 mg PO HS [facility] Last Admin: 06/12/18 21:17 Dose: 10 mg Celecoxib (Celebrex) 100 mg PO Q12 [facility] Last Admin: 06/12/18 21:17 Dose: 100 mg Docusate Sodium (Colace) 100 mg PO BID [facility] Last Admin: 06/12/18 17:26 Dose: 100 mg Enoxaparin Sodium (Lovenox) 40 mg SC DAILY [facility] PRN Reason: Protocol Last Admin: 06/12/18 08:34 Dose: 40 mg Ferrous Sulfate (Feosol) 325 mg PO BID [facility] Last Admin: 06/12/18 17:27 Dose: 325 mg Folic Acid (Folic Acid) 1 mg PO DAILY [facility] Last Admin: 06/12/18 08:34 Dose: 1 mg Gabapentin (Neurontin) 600 mg PO TID [facility] Last Admin: 06/12/18 17:27 Dose: 600 mg Losartan Potassium (Cozaar) 25 mg PO DAILY [facility] Last Admin: 06/12/18 08:33 Dose: 25 mg Ondansetron HCl (Zofran Inj) 4 mg IVP Q4 PRN PRN Reason: Nausea/Vomiting Oxycodone HCl (Oxycodone Immediate Release Tab) 10 mg PO Q4H PRN PRN Reason: Pain, moderate (4-7) Last Admin: 06/13/18 06:40 Dose: 10 mg Oxycodone HCl (Oxycontin Extended Release Tab) 20 mg PO Q8@0500,1300,2100 [facility] Last Admin: 06/13/18 04:31 Dose: 20 mg - Labs Labs: 06/06/18 05:45 06/06/18 05:45 - Constitutional Appears: No Acute Distress - Head Exam Head Exam: ATRAUMATIC, NORMAL INSPECTION, NORMOCEPHALIC - Eye Exam Eye Exam: EOMI, Normal appearance, PERRL Pupil Exam: NORMAL ACCOMODATION, PERRL - ENT Exam ENT Exam: Mucous Membranes Moist, Normal Exam - Neck Exam Neck Exam: Full ROM, Normal Inspection. absent: Lymphadenopathy - Respiratory Exam Respiratory Exam: Clear to Ausculation Bilateral, NORMAL BREATHING PATTERN - Cardiovascular Exam Cardiovascular Exam: REGULAR RHYTHM, +S1, +S2. absent: Murmur - GI/Abdominal Exam GI & Abdominal Exam: Soft, Normal Bowel Sounds. absent: Tenderness - Rectal Exam Rectal Exam: NORMAL INSPECTION - Extremities Exam Extremities Exam: Full ROM, Normal Capillary Refill, Normal Inspection, Tenderness. absent: Joint Swelling, Pedal Edema - Back Exam Back Exam: NORMAL INSPECTION - Neurological Exam Neurological Exam: Alert, Awake, CN II-XII Intact, Normal Gait, Oriented x3 - Psychiatric Exam Psychiatric exam: Normal Affect, Normal Mood - Skin Skin Exam: Dry, Intact, Normal Color, Warm Assessment and Plan - Assessment and Plan (Free Text) Assessment: S/P R TKR HYPERTENSION Plan: CONTINUE CURRENT RX
--- NOTE | 2018-06-13 08:34 | CP.PCM.PN ---
Subjective - Date & Time of Evaluation Date of Evaluation: 06/13/18 Time of Evaluation: 07:45 - Subjective Subjective: Patient seen and examined at bedside comfortable. Pain improved and mild at this time. No new complaints. Objective - Vital Signs/Intake and Output Vital Signs (last 24 hours): Temp Pulse Resp BP Pulse Ox 97.2 F L 73 20 126/68 99 06/13/18 08:19 06/13/18 08:19 06/13/18 08:19 06/13/18 08:19 06/13/18 08:19 - Medications Medications: Current Medications Acetaminophen (Tylenol 325mg Tab) 650 mg PO Q4 PRN PRN Reason: Fever of 100.6 F and Above Aspirin (Aspirin Chewable) 81 mg PO DAILY [facility] Last Admin: 06/12/18 08:32 Dose: 81 mg Atorvastatin Calcium (Lipitor) 10 mg PO HS [facility] Last Admin: 06/12/18 21:17 Dose: 10 mg Celecoxib (Celebrex) 100 mg PO Q12 [facility] Last Admin: 06/12/18 21:17 Dose: 100 mg Docusate Sodium (Colace) 100 mg PO BID [facility] Last Admin: 06/12/18 17:26 Dose: 100 mg Enoxaparin Sodium (Lovenox) 40 mg SC DAILY [facility] PRN Reason: Protocol Last Admin: 06/12/18 08:34 Dose: 40 mg Ferrous Sulfate (Feosol) 325 mg PO BID [facility] Last Admin: 06/12/18 17:27 Dose: 325 mg Folic Acid (Folic Acid) 1 mg PO DAILY [facility] Last Admin: 06/12/18 08:34 Dose: 1 mg Gabapentin (Neurontin) 600 mg PO TID [facility] Last Admin: 06/12/18 17:27 Dose: 600 mg Losartan Potassium (Cozaar) 25 mg PO DAILY [facility] Last Admin: 06/12/18 08:33 Dose: 25 mg Ondansetron HCl (Zofran Inj) 4 mg IVP Q4 PRN PRN Reason: Nausea/Vomiting Oxycodone HCl (Oxycodone Immediate Release Tab) 10 mg PO Q4H PRN PRN Reason: Pain, moderate (4-7) Last Admin: 06/13/18 06:40 Dose: 10 mg Oxycodone HCl (Oxycontin Extended Release Tab) 20 mg PO Q8@0500,1300,2100 [facility] Last Admin: 06/13/18 04:31 Dose: 20 mg - Labs Labs: 06/06/18 05:45 06/06/18 05:45 - Extremities Exam Additional comments: R knee: Wet to dry betadine dressings intact, dressings removed revealing wound intact with crystal,no drainage sensation intact SP/DP/TN motor intact EHL/FHL/TA/G pedal pulses intact comps soft NT Assessment and Plan (1) Status post right knee replacement Assessment & Plan: POD# 10 s/p R TKA -Wet to dry dressings changed, possibly dry dressings tomorrow if wound is dry -PT/OT FWB -DVT ppx -orthopedically stable -above d/w Dr. Plasencia in agreement Status: Acute
[2018-06-13] MEDS: Enoxaparin 40 mg Syringe SC SCH (08:45)
--- NOTE | 2018-06-13 14:20 | CP.PCM.PN ---
Subjective - Date & Time of Evaluation Date of Evaluation: 06/13/18 Time of Evaluation: 14:18 - Subjective Subjective: Patient seen in the room and doing well denies constipation ambulating 150' with RW pain is controlled using the CPM good compliance continue current care Objective - Vital Signs/Intake and Output Vital Signs (last 24 hours): Temp Pulse Resp BP Pulse Ox 97.2 F L 73 20 126/68 99 06/13/18 08:19 06/13/18 08:45 06/13/18 08:19 06/13/18 08:45 06/13/18 08:19 - Medications Medications: Current Medications Acetaminophen (Tylenol 325mg Tab) 650 mg PO Q4 PRN PRN Reason: Fever of 100.6 F and Above Aspirin (Aspirin Chewable) 81 mg PO DAILY [facility] Last Admin: 06/13/18 08:45 Dose: 81 mg Atorvastatin Calcium (Lipitor) 10 mg PO HS [facility] Last Admin: 06/12/18 21:17 Dose: 10 mg Celecoxib (Celebrex) 100 mg PO Q12 [facility] Last Admin: 06/13/18 08:45 Dose: 100 mg Docusate Sodium (Colace) 100 mg PO BID [facility] Last Admin: 06/13/18 08:46 Dose: 100 mg Enoxaparin Sodium (Lovenox) 40 mg SC DAILY [facility] PRN Reason: Protocol Last Admin: 06/13/18 08:45 Dose: 40 mg Ferrous Sulfate (Feosol) 325 mg PO BID [facility] Last Admin: 06/13/18 08:45 Dose: 325 mg Folic Acid (Folic Acid) 1 mg PO DAILY [facility] Last Admin: 06/13/18 08:45 Dose: 1 mg Gabapentin (Neurontin) 600 mg PO TID [facility] Last Admin: 06/13/18 12:50 Dose: 600 mg Losartan Potassium (Cozaar) 25 mg PO DAILY [facility] Last Admin: 06/13/18 08:45 Dose: 25 mg Ondansetron HCl (Zofran Inj) 4 mg IVP Q4 PRN PRN Reason: Nausea/Vomiting Oxycodone HCl (Oxycodone Immediate Release Tab) 10 mg PO Q4H PRN PRN Reason: Pain, moderate (4-7) Last Admin: 06/13/18 06:40 Dose: 10 mg Oxycodone HCl (Oxycontin Extended Release Tab) 20 mg PO Q8@0500,1300,2100 [facility] Last Admin: 06/13/18 12:50 Dose: 20 mg - Labs Labs: 06/06/18 05:45 06/06/18 05:45
[2018-06-14] MEDS: oxyCODONE 10 mg Immediate Release Tab PO PRN ×3 (01:01→17:05)
[2018-06-14] MEDS: oxyCODONE 20 mg ER Tab (oxyCONTIN) PO SCH ×3 (04:58→21:02)
--- NOTE | 2018-06-14 08:19 | CP.PCM.PN ---
Subjective - Date & Time of Evaluation Date of Evaluation: 06/14/18 Time of Evaluation: 08:19 - Subjective Subjective: NO NEW COMPLAINTS EXCEPT FOR POSTOP PAIN Objective - Vital Signs/Intake and Output Vital Signs (last 24 hours): Temp Pulse Resp BP Pulse Ox 97.5 F L 91 H 20 133/63 98 06/13/18 21:45 06/13/18 21:45 06/13/18 21:45 06/13/18 21:45 06/13/18 21:45 - Medications Medications: Current Medications Acetaminophen (Tylenol 325mg Tab) 650 mg PO Q4 PRN PRN Reason: Fever of 100.6 F and Above Aspirin (Aspirin Chewable) 81 mg PO DAILY [facility] Last Admin: 06/13/18 08:45 Dose: 81 mg Atorvastatin Calcium (Lipitor) 10 mg PO HS [facility] Last Admin: 06/13/18 21:06 Dose: 10 mg Celecoxib (Celebrex) 100 mg PO Q12 [facility] Last Admin: 06/13/18 21:06 Dose: 100 mg Docusate Sodium (Colace) 100 mg PO BID [facility] Last Admin: 06/13/18 16:57 Dose: 100 mg Ferrous Sulfate (Feosol) 325 mg PO BID [facility] Last Admin: 06/13/18 16:57 Dose: 325 mg Folic Acid (Folic Acid) 1 mg PO DAILY [facility] Last Admin: 06/13/18 08:45 Dose: 1 mg Gabapentin (Neurontin) 600 mg PO TID [facility] Last Admin: 06/13/18 17:40 Dose: 600 mg Losartan Potassium (Cozaar) 25 mg PO DAILY [facility] Last Admin: 06/13/18 08:45 Dose: 25 mg Ondansetron HCl (Zofran Inj) 4 mg IVP Q4 PRN PRN Reason: Nausea/Vomiting Oxycodone HCl (Oxycodone Immediate Release Tab) 10 mg PO Q4H PRN PRN Reason: Pain, moderate (4-7) Last Admin: 06/14/18 01:01 Dose: 10 mg Oxycodone HCl (Oxycontin Extended Release Tab) 20 mg PO Q8@0500,1300,2100 [facility] Last Admin: 06/14/18 04:58 Dose: 20 mg - Labs Labs: 06/06/18 05:45 06/06/18 05:45 - Constitutional Appears: No Acute Distress - Head Exam Head Exam: ATRAUMATIC, NORMAL INSPECTION, NORMOCEPHALIC - Eye Exam Eye Exam: EOMI, Normal appearance, PERRL Pupil Exam: NORMAL ACCOMODATION, PERRL - ENT Exam ENT Exam: Mucous Membranes Moist, Normal Exam - Neck Exam Neck Exam: Full ROM, Normal Inspection. absent: Lymphadenopathy - Respiratory Exam Respiratory Exam: Clear to Ausculation Bilateral, NORMAL BREATHING PATTERN - Cardiovascular Exam Cardiovascular Exam: REGULAR RHYTHM, +S1, +S2. absent: Murmur - GI/Abdominal Exam GI & Abdominal Exam: Soft, Normal Bowel Sounds. absent: Tenderness - Rectal Exam Rectal Exam: NORMAL INSPECTION - Extremities Exam Extremities Exam: Full ROM, Normal Capillary Refill, Normal Inspection, Tenderness. absent: Joint Swelling, Pedal Edema - Back Exam Back Exam: NORMAL INSPECTION - Neurological Exam Neurological Exam: Alert, Awake, CN II-XII Intact, Normal Gait, Oriented x3 - Psychiatric Exam Psychiatric exam: Normal Affect, Normal Mood - Skin Skin Exam: Dry, Intact, Normal Color, Warm Assessment and Plan - Assessment and Plan (Free Text) Assessment: S/P R TKR HTN Plan: CONTINUE CURRENT RX
--- NOTE | 2018-06-14 09:10 | CP.PCM.PN ---
Subjective - Date & Time of Evaluation Date of Evaluation: 06/14/18 Time of Evaluation: 09:07 - Subjective Subjective: Patient states pain is controlled. No new complaints. Objective - Vital Signs/Intake and Output Vital Signs (last 24 hours): Temp Pulse Resp BP Pulse Ox 97.7 F 83 20 122/67 96 06/14/18 08:17 06/14/18 08:50 06/14/18 08:17 06/14/18 08:50 06/14/18 08:17 - Medications Medications: Current Medications Acetaminophen (Tylenol 325mg Tab) 650 mg PO Q4 PRN PRN Reason: Fever of 100.6 F and Above Aspirin (Aspirin Chewable) 81 mg PO DAILY [facility] Last Admin: 06/14/18 08:50 Dose: 81 mg Atorvastatin Calcium (Lipitor) 10 mg PO HS [facility] Last Admin: 06/13/18 21:06 Dose: 10 mg Celecoxib (Celebrex) 100 mg PO Q12 [facility] Last Admin: 06/14/18 08:50 Dose: 100 mg Docusate Sodium (Colace) 100 mg PO BID [facility] Last Admin: 06/14/18 08:49 Dose: 100 mg Ferrous Sulfate (Feosol) 325 mg PO BID [facility] Last Admin: 06/14/18 08:49 Dose: 325 mg Folic Acid (Folic Acid) 1 mg PO DAILY [facility] Last Admin: 06/14/18 08:50 Dose: 1 mg Gabapentin (Neurontin) 600 mg PO TID [facility] Last Admin: 06/14/18 08:49 Dose: 600 mg Losartan Potassium (Cozaar) 25 mg PO DAILY [facility] Last Admin: 06/14/18 08:50 Dose: 25 mg Ondansetron HCl (Zofran Inj) 4 mg IVP Q4 PRN PRN Reason: Nausea/Vomiting Oxycodone HCl (Oxycodone Immediate Release Tab) 10 mg PO Q4H PRN PRN Reason: Pain, moderate (4-7) Last Admin: 06/14/18 08:49 Dose: 10 mg Oxycodone HCl (Oxycontin Extended Release Tab) 20 mg PO Q8@0500,1300,2100 [facility] Last Admin: 06/14/18 04:58 Dose: 20 mg - Labs Labs: 06/06/18 05:45 06/06/18 05:45 - Extremities Exam Additional comments: mild expected knee swelling, no erythema, dry, incision intact, calves soft NT neg homans +DP/PT pulses Assessment and Plan (1) Osteoarthritis of right knee Assessment & Plan: s/p TKR cont PT/OT VTE proph orthopedically stable d/w Dr. Plasencia, agrees with above Status: Acute (2) Vitamin D deficiency Assessment & Plan: <12 supp f/u with PMD 3 months to recheck Status: Acute
[2018-06-14] MEDS: Cholecalciferol 1,000 INTLU TAB PO SCH (10:36)
[2018-06-15] MEDS: oxyCODONE 10 mg Immediate Release Tab PO PRN ×2 (01:10→19:52)
[2018-06-15] MEDS: oxyCODONE 20 mg ER Tab (oxyCONTIN) PO SCH ×3 (05:20→21:13)
[2018-06-15] MEDS: Cholecalciferol 1,000 INTLU TAB PO SCH (08:20)
--- NOTE | 2018-06-15 08:58 | CP.PCM.PN ---
Subjective - Date & Time of Evaluation Date of Evaluation: 06/15/18 Time of Evaluation: 08:57 - Subjective Subjective: Patient seen in the room doing well right calf is swollen as would be expected after a right TKR but the temp is warm will get a right LE doppler at this time no sob/cp or cough negative Dilip's Objective - Vital Signs/Intake and Output Vital Signs (last 24 hours): Temp Pulse Resp BP Pulse Ox 97.8 F 78 20 128/59 L 100 06/15/18 08:24 06/15/18 08:24 06/15/18 08:24 06/15/18 08:24 06/15/18 08:24 - Medications Medications: Current Medications Acetaminophen (Tylenol 325mg Tab) 650 mg PO Q4 PRN PRN Reason: Fever of 100.6 F and Above Aspirin (Aspirin Chewable) 81 mg PO DAILY [facility] Last Admin: 06/15/18 08:20 Dose: 81 mg Atorvastatin Calcium (Lipitor) 10 mg PO HS [facility] Last Admin: 06/14/18 21:02 Dose: 10 mg Calcium Carbonate (Oscal) 500 mg PO DAILY [facility] Last Admin: 06/15/18 08:20 Dose: 500 mg Celecoxib (Celebrex) 100 mg PO Q12 [facility] Last Admin: 06/15/18 08:20 Dose: 100 mg Cholecalciferol (Vitamin D) 2,000 intlu PO DAILY [facility] Last Admin: 06/15/18 08:20 Dose: 2,000 intlu Docusate Sodium (Colace) 100 mg PO BID [facility] Last Admin: 06/15/18 08:19 Dose: 100 mg Ferrous Sulfate (Feosol) 325 mg PO BID [facility] Last Admin: 06/15/18 08:20 Dose: 325 mg Folic Acid (Folic Acid) 1 mg PO DAILY [facility] Last Admin: 06/15/18 08:21 Dose: 1 mg Gabapentin (Neurontin) 600 mg PO TID [facility] Last Admin: 06/15/18 08:19 Dose: 600 mg Losartan Potassium (Cozaar) 25 mg PO DAILY [facility] Last Admin: 06/15/18 08:21 Dose: 25 mg Ondansetron HCl (Zofran Inj) 4 mg IVP Q4 PRN PRN Reason: Nausea/Vomiting Oxycodone HCl (Oxycodone Immediate Release Tab) 10 mg PO Q4H PRN PRN Reason: Pain, moderate (4-7) Last Admin: 06/15/18 01:10 Dose: 10 mg Oxycodone HCl (Oxycontin Extended Release Tab) 20 mg PO Q8@0500,1300,2100 [facility] Last Admin: 06/15/18 05:20 Dose: 20 mg - Labs Labs: 06/06/18 05:45 06/06/18 05:45
--- NOTE | 2018-06-15 11:12 | CP.PCM.PN ---
Subjective - Date & Time of Evaluation Date of Evaluation: 06/15/18 Time of Evaluation: 10:30 - Subjective Subjective: S- pt without complaints Objective - Vital Signs/Intake and Output Vital Signs (last 24 hours): Temp Pulse Resp BP Pulse Ox 97.8 F 78 20 128/59 L 100 06/15/18 08:24 06/15/18 08:24 06/15/18 08:24 06/15/18 08:24 06/15/18 08:24 - Medications Medications: Current Medications Acetaminophen (Tylenol 325mg Tab) 650 mg PO Q4 PRN PRN Reason: Fever of 100.6 F and Above Aspirin (Aspirin Chewable) 81 mg PO DAILY [facility] Last Admin: 06/15/18 08:20 Dose: 81 mg Atorvastatin Calcium (Lipitor) 10 mg PO HS [facility] Last Admin: 06/14/18 21:02 Dose: 10 mg Calcium Carbonate (Oscal) 500 mg PO DAILY [facility] Last Admin: 06/15/18 08:20 Dose: 500 mg Celecoxib (Celebrex) 100 mg PO Q12 [facility] Last Admin: 06/15/18 08:20 Dose: 100 mg Cholecalciferol (Vitamin D) 2,000 intlu PO DAILY [facility] Last Admin: 06/15/18 08:20 Dose: 2,000 intlu Docusate Sodium (Colace) 100 mg PO BID [facility] Last Admin: 06/15/18 08:19 Dose: 100 mg Ferrous Sulfate (Feosol) 325 mg PO BID [facility] Last Admin: 06/15/18 08:20 Dose: 325 mg Folic Acid (Folic Acid) 1 mg PO DAILY [facility] Last Admin: 06/15/18 08:21 Dose: 1 mg Gabapentin (Neurontin) 600 mg PO TID [facility] Last Admin: 06/15/18 08:19 Dose: 600 mg Losartan Potassium (Cozaar) 25 mg PO DAILY [facility] Last Admin: 06/15/18 08:21 Dose: 25 mg Ondansetron HCl (Zofran Inj) 4 mg IVP Q4 PRN PRN Reason: Nausea/Vomiting Oxycodone HCl (Oxycodone Immediate Release Tab) 10 mg PO Q4H PRN PRN Reason: Pain, moderate (4-7) Last Admin: 06/15/18 01:10 Dose: 10 mg Oxycodone HCl (Oxycontin Extended Release Tab) 20 mg PO Q8@0500,1300,2100 [facility] Last Admin: 06/15/18 05:20 Dose: 20 mg - Labs Labs: 06/06/18 05:45 06/06/18 05:45 - Skin Additional comments: Objective stance/gait- defrred dressing changed wound nebign no evidence for sepsis/no drainage R calf- no tenderness to palpation/ minimal eythema No Marly's Assessment and Plan - Assessment and Plan (Free Text) Assessment: A- crystal removed wound benign pt weight bearing to tolerance CPM P- doppler to be accomp[lished as per DR saeed
--- NOTE | 2018-06-15 11:18 | CP.PCM.PN ---
Subjective - Date & Time of Evaluation Date of Evaluation: 06/15/18 Time of Evaluation: 11:19 - Subjective Subjective: feels better still has edema of r leg Objective - Vital Signs/Intake and Output Vital Signs (last 24 hours): Temp Pulse Resp BP Pulse Ox 97.8 F 78 20 128/59 L 100 06/15/18 08:24 06/15/18 08:24 06/15/18 08:24 06/15/18 08:24 06/15/18 08:24 - Medications Medications: Current Medications Acetaminophen (Tylenol 325mg Tab) 650 mg PO Q4 PRN PRN Reason: Fever of 100.6 F and Above Aspirin (Aspirin Chewable) 81 mg PO DAILY [facility] Last Admin: 06/15/18 08:20 Dose: 81 mg Atorvastatin Calcium (Lipitor) 10 mg PO HS [facility] Last Admin: 06/14/18 21:02 Dose: 10 mg Calcium Carbonate (Oscal) 500 mg PO DAILY [facility] Last Admin: 06/15/18 08:20 Dose: 500 mg Celecoxib (Celebrex) 100 mg PO Q12 [facility] Last Admin: 06/15/18 08:20 Dose: 100 mg Cholecalciferol (Vitamin D) 2,000 intlu PO DAILY [facility] Last Admin: 06/15/18 08:20 Dose: 2,000 intlu Docusate Sodium (Colace) 100 mg PO BID [facility] Last Admin: 06/15/18 08:19 Dose: 100 mg Ferrous Sulfate (Feosol) 325 mg PO BID [facility] Last Admin: 06/15/18 08:20 Dose: 325 mg Folic Acid (Folic Acid) 1 mg PO DAILY [facility] Last Admin: 06/15/18 08:21 Dose: 1 mg Gabapentin (Neurontin) 600 mg PO TID [facility] Last Admin: 06/15/18 08:19 Dose: 600 mg Losartan Potassium (Cozaar) 25 mg PO DAILY [facility] Last Admin: 06/15/18 08:21 Dose: 25 mg Ondansetron HCl (Zofran Inj) 4 mg IVP Q4 PRN PRN Reason: Nausea/Vomiting Oxycodone HCl (Oxycodone Immediate Release Tab) 10 mg PO Q4H PRN PRN Reason: Pain, moderate (4-7) Last Admin: 06/15/18 01:10 Dose: 10 mg Oxycodone HCl (Oxycontin Extended Release Tab) 20 mg PO Q8@0500,1300,2100 [facility] Last Admin: 06/15/18 05:20 Dose: 20 mg - Labs Labs: 06/06/18 05:45 06/06/18 05:45 - Head Exam Head Exam: ATRAUMATIC, NORMAL INSPECTION, NORMOCEPHALIC - Eye Exam Eye Exam: EOMI, Normal appearance, PERRL Pupil Exam: NORMAL ACCOMODATION, PERRL - ENT Exam ENT Exam: Mucous Membranes Moist, Normal Exam - Neck Exam Neck Exam: Full ROM, Normal Inspection. absent: Lymphadenopathy - Respiratory Exam Respiratory Exam: Clear to Ausculation Bilateral, NORMAL BREATHING PATTERN - Cardiovascular Exam Cardiovascular Exam: REGULAR RHYTHM, +S1, +S2. absent: Murmur - GI/Abdominal Exam GI & Abdominal Exam: Soft, Normal Bowel Sounds. absent: Tenderness - Rectal Exam Rectal Exam: NORMAL INSPECTION - Extremities Exam Extremities Exam: Full ROM, Normal Capillary Refill, Normal Inspection, Pedal Edema, Tenderness. absent: Joint Swelling - Back Exam Back Exam: NORMAL INSPECTION - Neurological Exam Neurological Exam: Alert, Awake, CN II-XII Intact, Normal Gait, Oriented x3 - Psychiatric Exam Psychiatric exam: Normal Affect, Normal Mood - Skin Skin Exam: Dry, Intact, Normal Color, Warm Assessment and Plan - Assessment and Plan (Free Text) Assessment: s/p r tkr r/o dvt htn Plan: for venous doppler of r leg continue lovenox rx
[2018-06-15] MEDS ORDERED: Enoxaparin 40 mg Syringe SC SCH (11:30)
[2018-06-15] MEDS: Enoxaparin 100 mg Syringe SC SCH ×2 (15:11→21:13)
[2018-06-16] MEDS: oxyCODONE 10 mg Immediate Release Tab PO PRN ×2 (01:05→08:17)
[2018-06-16] MEDS: oxyCODONE 20 mg ER Tab (oxyCONTIN) PO SCH ×2 (05:02→12:23)
[2018-06-16] MEDS: Enoxaparin 100 mg Syringe SC SCH (08:13)
[2018-06-16] MEDS: Cholecalciferol 1,000 INTLU TAB PO SCH (08:14)
[2018-06-16 08:22] VITALS: BP 121/70; PULSE 79
[2018-06-16 08:25] VITALS: TEMP 97.5; O2SAT 98
--- NOTE | 2018-06-16 10:02 | CP.PCM.DIS ---
Provider - Provider Date of Admission: 06/04/18 18:37 Attending physician: Jose Guadalupe Hassan MD Primary care physician: Jose Guadalupe Hassan MD Time Spent in preparation of Discharge (in minutes): 35 Diagnosis - Discharge Diagnosis (1) Deep venous thrombosis Status: Acute (2) Status post right knee replacement Status: Acute (3) Hyperlipidemia Status: Acute (4) Hypertension Status: Acute (5) Osteoarthritis of right knee Status: Acute Hospital Course - Lab Results Lab Results: Most Recent Lab Values WBC 12.4 K/uL (4.8-10.8) H 06/06/18 05:45 RBC 3.64 Mil/uL (4.40-5.90) L 06/06/18 05:45 Hgb 11.4 g/dL (12.0-18.0) L D 06/06/18 05:45 Hct 33.0 % (35.0-51.0) L 06/06/18 05:45 MCV 90.7 fl (80.0-94.0) 06/06/18 05:45 MCH 31.4 pg (27.0-31.0) H 06/06/18 05:45 MCHC 34.6 g/dL (33.0-37.0) 06/06/18 05:45 RDW 12.4 % (11.5-14.5) 06/06/18 05:45 Plt Count 270 K/uL (130-400) 06/06/18 05:45 MPV 7.8 fl (7.2-11.7) 06/06/18 05:45 Neut % (Auto) 75.3 % (50.0-75.0) H 06/06/18 05:45 Lymph % (Auto) 10.2 % (20.0-40.0) L 06/06/18 05:45 [place] % (Auto) 14.2 % (0.0-10.0) H 06/06/18 05:45 Eos % (Auto) 0.2 % (0.0-4.0) 06/06/18 05:45 Baso % (Auto) 0.1 % (0.0-2.0) 06/06/18 05:45 Neut # (Auto) 9.4 K/uL (1.8-7.0) H 06/06/18 05:45 Lymph # (Auto) 1.3 K/uL (1.0-4.3) 06/06/18 05:45 [place] # (Auto) 1.8 K/uL (0.0-0.8) H 06/06/18 05:45 Eos # (Auto) 0.0 K/uL (0.0-0.7) 06/06/18 05:45 Baso # (Auto) 0.0 K/uL (0.0-0.2) 06/06/18 05:45 Sodium 134 mmol/l (132-148) 06/06/18 05:45 Potassium 3.7 MMOL/L (3.6-5.0) 06/06/18 05:45 Chloride 96 mmol/L (98-107) L 06/06/18 05:45 Carbon Dioxide 28 mmol/L (22-30) 06/06/18 05:45 Anion Gap 14 (10-20) 06/06/18 05:45 BUN 10 mg/dl (9-20) 06/06/18 05:45 Creatinine 0.8 mg/dl (0.8-1.5) 06/06/18 05:45 Est GFR ( Amer) > 60 06/06/18 05:45 Est GFR (Non-Af Amer) > 60 06/06/18 05:45 Random Glucose 129 mg/dL (75-110) H 06/06/18 05:45 Calcium 8.8 mg/dL (8.4-10.2) 06/06/18 05:45 Discharge Exam - Head Exam Head Exam: ATRAUMATIC, NORMAL INSPECTION, NORMOCEPHALIC - Eye Exam Eye Exam: EOMI, Normal appearance, PERRL Pupil Exam: NORMAL ACCOMODATION, PERRL - GI/Abdominal Exam GI & Abdominal Exam: Normal Bowel Sounds - Rectal Exam Rectal Exam: NORMAL INSPECTION - Extremities Exam Extremities exam: pedal edema, tenderness - Neurological Exam Neurological exam: Alert, CN II-XII Intact, Normal Gait, Oriented x3, Reflexes Normal - Psychiatric Exam Psychiatric exam: Normal Affect, Normal Mood - Skin Skin Exam: Dry, Intact, Normal Color, Warm Discharge Plan - Follow Up Plan Condition: GOOD Disposition: HOME/ ROUTINE Patient education suggested?: Yes Additional Instructions: FOLLOW UP WITH DR ANTHONY AND JUDI Referrals: Jose Guadalupe Hassan MD [Primary Care Provider] -
--- NOTE | 2018-06-17 11:07 | US ---
Date of service: 06/15/2018 PROCEDURE: Right lower extremity venous duplex Doppler. HISTORY: POST OP, SWELLING COMPARISON: None available. TECHNIQUE: Common femoral, superficial femoral, popliteal and posterior tibial veins were evaluated. Flow was assessed with color Doppler, compressibility, assessment of phasic flow and augmentation response. FINDINGS: COMMON FEMORAL VEIN: Unremarkable. SUPERFICIAL FEMORAL VEIN: Unremarkable. POPLITEAL VEIN: Unremarkable. POSTERIOR TIBIAL VEIN: Focal thrombus affecting posterior tibial vein. OTHER FINDINGS: None. IMPRESSION: Acute thrombus limited to the right posterior tibial vein without proximal propagation Concordant results (preliminary interpretation) provided by [facility]. Procedure Completed: 12:22 Preliminary ([facility]) Report: Dictated and Authenticated: 13:02 June 15, 2008 Final Interpretation: 11:05 June 17, 2018.
== END 2018-06-16 13:20 | disposition home or self-care (01) | DRG 561 ==
LOC: H.TCU 18:37
PROVIDERS: ADMIT Internal Medicine Pulmonary Disease; ATTEND Internal Medicine Pulmonary Disease
PROC: F07Z9FZ Gait Training/Functional Ambulation Treatment using Assistive, Adaptive, Supportive or Protective Equipment (ICD-10-PCS; principal; 2018-06-04)
PROC: F08Z4FZ Home Management Treatment using Assistive, Adaptive, Supportive or Protective Equipment (ICD-10-PCS; 2018-06-04)
PROC: F07M6FZ Therapeutic Exercise Treatment of Musculoskeletal System - Whole Body using Assistive, Adaptive, Supportive or Protective Equipment (ICD-10-PCS; 2018-06-04)
DX: Z47.1 Aftercare following joint replacement surgery (principal); M17.11 Unilateral primary osteoarthritis, right knee; Z96.651 Presence of right artificial knee joint; K29.70 Gastritis, unspecified, without bleeding; R00.0 Tachycardia, unspecified; R60.0 Localized edema; E78.00 Pure hypercholesterolemia, unspecified; E78.5 Hyperlipidemia, unspecified; I10 Essential (primary) hypertension; J44.9 Chronic obstructive pulmonary disease, unspecified

== ENCOUNTER 2018-06-25 10:24 | Emergency (ER) | payer BC ==
[2018-06-25 10:35] VITALS: BMI 28.8
[2018-06-25 12:38] LABS: BASO # 0.1 K/uL (0.0-0.2); EOS # 0.1 K/uL (0.0-0.7); EOS % 1.4 % (0.0-4.0); HEMOGLOBIN 12.7 g/dL (12.0-18.0); LYMPH # 1.8 K/uL (1.0-4.3); LYMPH % 18.8 % (20.0-40.0); MEAN CELL VOLUME 87.8 fl (80.0-94.0); MEAN CORPUSCULAR HEMOGLOBIN 29.8 pg (27.0-31.0); MEAN CORPUSCULAR HGB CONC 33.9 g/dL (33.0-37.0); MEAN PLATELET VOLUME 7.8 fl (7.2-11.7); MONO # 0.8 K/uL (0.0-0.8); MONO % 8.4 % (0.0-10.0); NEUT # 6.6 K/uL (1.8-7.0); NEUT % 70.4 % (50.0-75.0); NRBC % 0.1 % (0.0-0.0); RBC 4.28 Mil/uL (4.40-5.90); RED CELL DISTRIBUTION WIDTH 13.7 % (11.5-14.5); WHITE BLOOD COUNT 9.4 K/uL (4.8-10.8)
[2018-06-25 13:11] LABS: INR 1.8
[2018-06-25 13:14] LABS: PARTIAL THROMBOPLASTIN TIME 37.4 Seconds (25.6-37.1)
[2018-06-25 13:27] VITALS: O2SAT 98
[2018-06-25 13:32] LABS: ALB/GLOB RATIO 1.2 (1.0-2.1); ALBUMIN 4.3 g/dL (3.5-5.0); ALT/SGPT 40 U/L (21-72); AST/SGOT 28 U/L (17-59); BLOOD UREA NITROGEN 17 mg/dl (9-20); CALCIUM 9.7 mg/dL (8.4-10.2); GFR AFRICAN-AMERICAN > 60; GFR NON-AFRICAN AMERICAN > 60
--- NOTE | 2018-06-25 13:40 | ED PDOC ---
Lower Extremity Pain/Injury Time Seen by Provider: 06/25/18 10:49 Chief Complaint (Nursing): Lower Extremity Problem/Injury Chief Complaint (Provider): Right Knee Pain History Per: Patient History/Exam Limitations: no limitations Onset/Duration Of Symptoms: Days Current Symptoms Are (Timing): Still Present Additional Complaint(s): 58 year old male presents to the ED for an evaluation of his right knee pain. Patient states he had a right total knee replacement in May by Dr. Anthony and found to have DVT in the right leg. Reports he has been taking Xarelto past 2 days without any relief. He contacted Dr. Anthony but was advised to visit the ED. Patient denies having a history of DVT or PE prior to this episode. Also denies chest pain, shortness of breath, palpitations, hemoptysis, fever, numbness or tingling. PMD: Dr. Hassan, ORTHO: Dr. Anthony Past Medical History Reviewed: Historical Data, Nursing Documentation, Vital Signs Vital Signs: Last Vital Signs Temp 98.1 F 06/25/18 10:43 Pulse 90 06/25/18 13:26 Resp 18 06/25/18 13:26 BP 130/75 06/25/18 13:26 Pulse Ox 98 06/25/18 13:26 - Medical History PMH: Arthritis, COPD, Fractures, Gastritis (HEARTBURN), HTN, Hypercholesterolemia Denies: HIV, Chronic Kidney Disease - Surgical History Surgical History: Hernia Repair Other surgeries: right total knee replacement - Family History Family History: States: Unknown Family Hx, CAD - Social History Current smoker - smoking cessation education provided: No Alcohol: None Drugs: Denies - Home Medications Home Medications: Ambulatory Orders Medication Instructions Recorded Gabapentin [Neurontin] 600 mg PO TID 03/21/18 Losartan [Cozaar] 25 mg PO DAILY 03/21/18 Docusate [Colace] 100 mg PO BID cap 06/04/18 Ferrous Sulfate [Feosol] 325 mg PO BID tab 06/04/18 Folic Acid 1 mg PO DAILY tab 06/04/18 oxyCODONE [oxyCODONE Immediate 10 mg PO Q4H PRN 2 Days tab 06/04/18 Release Tab] Calcium Carbonate [Oscal] 500 mg PO DAILY #30 tab 06/16/18 Celecoxib [celeBREX] 100 mg PO Q12 #60 cap 06/16/18 Cholecalciferol [Vitamin D 1000 IU] 2,000 intlu PO DAILY #30 tab 06/16/18 Rivaroxaban [Xarelto] 15 mg PO BID #60 tab 06/16/18 - Allergies Allergies/Adverse Reactions: Allergies Allergy/AdvReac Type Severity Reaction Status Date / Time No Known Allergies Allergy Verified 06/04/18 17:11 Review of Systems ROS Statement: Except As Marked, All Systems Reviewed And Found Negative Constitutional: Negative for: Fever Cardiovascular: Negative for: Chest Pain, Palpitations Respiratory: Negative for: Shortness of Breath Musculoskeletal: Positive for: Leg Pain (right) Neurological: Negative for: Numbness Physical Exam - Reviewed Nursing Documentation Reviewed: Yes Vital Signs Reviewed: Yes - Physical Exam Appears: Positive for: Non-toxic, No Acute Distress Head Exam: Positive for: ATRAUMATIC, NORMAL INSPECTION, NORMOCEPHALIC Skin: Positive for: Normal Color, Warm, Dry Eye Exam: Positive for: Normal appearance Cardiovascular/Chest: Positive for: Regular Rate, Rhythm. Negative for: Murmur , Tachycardia Respiratory: Positive for: Normal Breath Sounds. Negative for: Decreased Breath Sounds, Wheezing, Respiratory Distress Pulses-Dorsalis Pedis (L): 2+ Pulses-Dorsalis Pedis (R): 2+ Extremity: Positive for: Normal ROM (right knee has healing wounds without erythema, discharge, swelling, or dehisence). Negative for: Tenderness, Calf Tenderness (b/l), Deformity, Swelling Neurologic/Psych: Positive for: Alert, Oriented (x3). Negative for: Motor/ Sensory Deficits - Laboratory Results Result Diagrams: 06/25/18 12:25 06/25/18 12:25 - ECG O2 Sat by Pulse Oximetry: 98 (RA) Pulse Ox Interpretation: Normal - Progress ED Course And Treament: Case d/w Dr. Anthony who states pt. can be dc'd and f/u in his office. Case d/w Dr. Hassan who also agrees with care, plan, and states pt. is to continue Xarelto and can be dc'd. Pt. informed of plan and f/u. Advised to continue Xarelto as prescribed. Reports no chest pain, SOB, or palpitations. Medical Decision Making Medical Decision Making: Time: 1137 Initial Impression: right knee pain Initial Plan: --EKG --CMP --CBC w/ Differential --Partial Thromboplastin Time [COAG] --Academic Physician --IV Insertion --Duplex Lower Extremity Vein Right [US] --Percocet 2 tabs PO --Reevaluation Time: 1419 PROCEDURE: Right lower extremity venous duplex Doppler. HISTORY: R popliteal vein DVT COMPARISON: 06/15/2018. TECHNIQUE: Common femoral, superficial femoral, popliteal and posterior tibial veins were evaluated. Flow was assessed with color Doppler, compressibility, assessment of phasic flow and augmentation response. FINDINGS: COMMON FEMORAL VEIN: Normal flow, compressibility and augmentation response. SUPERFICIAL FEMORAL VEIN: Normal flow, compressibility and augmentation response. POPLITEAL VEIN: Recanalization since the prior examination. Normal flow, compressibility and augmentation response. POSTERIOR TIBIAL VEIN: There is partial recanalization of the posterior tibial vein with normal flow in the proximal segment however persistent thrombus in the mid and distal segment. OTHER FINDINGS: None. IMPRESSION: 1. Interval recanalization of the proximal posterior tibial vein. Persistent thrombus the mid and distal posterior tibial vein. 2. Interval recanalization with normal flow in the popliteal vein. 3. No evidence of deep venous thrombosis in the common femoral and superficial femoral veins. Scribe Attestation: Documented by Branden Dunaway, acting as a scribe for Isael Jorge PA-C Provider Scribe Attestation: All medical record entries made by the Scribe were at my direction and personally dictated by me. I have reviewed the chart and agree that the record accurately reflects my personal performance of the history, physical exam, medical decision making, and the department course for this patient. I have also personally directed, reviewed, and agree with the discharge instructions and disposition. Disposition - Clinical Impression Clinical Impression: DVT (deep venous thrombosis) - Patient ED Disposition Is Patient to be Admitted: No - Disposition Referrals: Sage Anthony III, MD [Staff Provider] - Jose Guadalupe Hassan MD [Family Provider] - Disposition: Routine/Home Disposition Time: 14:40 Condition: STABLE Additional Instructions: FOLLOW UP WITH DR. ANTHONY ON SUNDAY WITHOUT FAIL PREVIOUSLY SCHEDULED CONTINUE XARELTO PREVIOUSLY PRESCRIBED WITHOUT FAIL NAVID GUARDADO, thank you for letting us take care of you today. Your provider was Ashish Valentin MD and you were treated for RT LEG PAIN. The emergency medical care you received today was directed at your acute symptoms. If you were prescribed any medication, please fill it and take as directed. It may take several days for your symptoms to resolve. Return to the Emergency Department if your symptoms worsen, do not improve, or if you have any other problems. Please contact your doctor or call one of the physicians/clinics you have been referred to that are listed on the Patient Visit Information form that is included in your discharge packet. Bring any paperwork you were given at discharge with you along with any medications you are taking to your follow up visit. Our treatment cannot replace ongoing medical care by a primary care provider outside of the emergency department. Thank you for allowing the [facility] team to be part of your care today. If you had an X-Ray or CT scan: A Radiologist will review the ED reading if any change in treatment is needed we will contact you. If you had a blood, urine, or wound culture: It will take several days for the results, if any change in treatment is needed we will contact you. If you had an STI test: It will take 48 hours for the results. Please call after 1 week if you have not heard back. Instructions: Deep Vein Thrombosis (Blood Clots in the Legs) (DC) Forms: [employer] (Georgian) Print Language: POLISH
[2018-06-25] MEDS ORDERED: Oxycodone/Acetaminophen 5/325 mg Tab PO STA (13:55)
[2018-06-25] MEDS ORDERED: Oxycodone/Acetaminophen 5/325 mg Tab ONE (14:16)
--- NOTE | 2018-06-25 14:20 | US ---
Date of service: 06/25/2018 PROCEDURE: Right lower extremity venous duplex Doppler. HISTORY: R popliteal vein DVT COMPARISON: 06/15/2018. TECHNIQUE: Common femoral, superficial femoral, popliteal and posterior tibial veins were evaluated. Flow was assessed with color Doppler, compressibility, assessment of phasic flow and augmentation response. FINDINGS: COMMON FEMORAL VEIN: Normal flow, compressibility and augmentation response. SUPERFICIAL FEMORAL VEIN: Normal flow, compressibility and augmentation response. POPLITEAL VEIN: Recanalization since the prior examination. Normal flow, compressibility and augmentation response. POSTERIOR TIBIAL VEIN: There is partial recanalization of the posterior tibial vein with normal flow in the proximal segment however persistent thrombus in the mid and distal segment. OTHER FINDINGS: None. IMPRESSION: 1. Interval recanalization of the proximal posterior tibial vein. Persistent thrombus the mid and distal posterior tibial vein. 2. Interval recanalization with normal flow in the popliteal vein. 3. No evidence of deep venous thrombosis in the common femoral and superficial femoral veins.
[2018-06-25 15:22] VITALS: BP 128/76; PULSE 78; RESP 19; TEMP 97
--- NOTE | 2018-06-26 08:31 | CARD ---
APPROVED REPORT Date of service: 06/25/2018 <Conclusion> Normal sinus rhythm Normal ECG
== END 2018-06-25 15:23 | disposition home or self-care (01) ==
LOC: H.ER 10:24
DX: I82.411 Acute embolism and thrombosis of right femoral vein (principal); I10 Essential (primary) hypertension; J44.9 Chronic obstructive pulmonary disease, unspecified; Z82.49 Family history of ischemic heart disease and other diseases of the circulatory system; Z96.651 Presence of right artificial knee joint; E78.00 Pure hypercholesterolemia, unspecified

== ENCOUNTER 2018-07-01 12:58 | Emergency (ER) | payer BC ==
[2018-07-01 12:58] VITALS: BMI 28.8
[2018-07-01 13:11] VITALS: BP 137/67; PULSE 80; RESP 18; TEMP 97; O2SAT 100
[2018-07-01] MEDS ORDERED: Oxycodone/Acetaminophen 5/325 mg Tab PO STA (13:21)
[2018-07-01] MEDS ORDERED: Oxycodone/Acetaminophen 5/325 mg Tab ONE (13:49)
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
--- NOTE | 2018-07-01 15:18 | RAD ---
Date of service: 07/01/2018 PROCEDURE: Right Knee Radiographs. HISTORY: Fall. Status post knee replacement COMPARISON: Comparison made with prior study 06/03/2018 FINDINGS: BONES: Re- demonstrated is right total knee replacement. Hardware appears intact with satisfactory alignment. No evidence of acute displaced fracture nor dislocation. There appears to be mild prepatellar soft tissue swelling with small -medium-sized suprapatellar joint effusion JOINTS: As above. JOINT EFFUSION: As above OTHER FINDINGS: None. IMPRESSION: Re- demonstrated is right total knee replacement. Hardware appears intact with satisfactory alignment. No evidence of acute displaced fracture nor dislocation. There appears to be mild prepatellar soft tissue swelling with small -medium-sized suprapatellar joint effusion
--- NOTE | 2018-07-01 15:52 | ED PDOC ---
HPI: Trauma/Fall - HPI Time Seen by Provider: 07/01/18 13:14 Chief Complaint (Nursing): Lower Extremity Problem/Injury Chief Complaint (Provider): Lower Extremity Problem/Injury History Per: Patient, Family () History/Exam Limitations: no limitations Onset/Duration Of Symptoms: Sudden Onset Injury Occurred (Timing): Just Before Arrival Additional Complaint(s): 58 year old male arrives to ED with for an evaluation of right knee pain status post fall injury prior to arrival. Patient states he was using his cane when he lost balance and twisted his right knee. He reports a history of a right knee replacement in 05/2018. Otherwise: (-) fever, (-) chills, (-) numbness, or (-) other bodily injuries. Past Medical History Reviewed: Historical Data, Nursing Documentation, Vital Signs Vital Signs: Last Vital Signs Temp 97 F L 07/01/18 13:06 Pulse 80 07/01/18 13:06 Resp 18 07/01/18 13:06 BP 137/67 07/01/18 13:06 Pulse Ox 100 07/01/18 16:04 - Medical History PMH: Arthritis, COPD, Fractures, Gastritis (HEARTBURN), HTN, Hypercholesterolemia Denies: HIV, Chronic Kidney Disease - Surgical History Surgical History: Hernia Repair Other surgeries: right knee replacement 05/2018 - Family History Family History: States: Unknown Family Hx, CAD - Home Medications Home Medications: Ambulatory Orders Medication Instructions Recorded Gabapentin [Neurontin] 600 mg PO TID 03/21/18 Losartan [Cozaar] 25 mg PO DAILY 03/21/18 Docusate [Colace] 100 mg PO BID cap 06/04/18 Ferrous Sulfate [Feosol] 325 mg PO BID tab 06/04/18 Folic Acid 1 mg PO DAILY tab 06/04/18 oxyCODONE [oxyCODONE Immediate 10 mg PO Q4H PRN 2 Days tab 06/04/18 Release Tab] Calcium Carbonate [Oscal] 500 mg PO DAILY #30 tab 06/16/18 Celecoxib [celeBREX] 100 mg PO Q12 #60 cap 06/16/18 Cholecalciferol [Vitamin D 1000 IU] 2,000 intlu PO DAILY #30 tab 06/16/18 Rivaroxaban [Xarelto] 15 mg PO BID #60 tab 06/16/18 - Allergies Allergies/Adverse Reactions: Allergies Allergy/AdvReac Type Severity Reaction Status Date / Time No Known Allergies Allergy Verified 06/04/18 17:11 Review of Systems ROS Statement: Except As Marked, All Systems Reviewed And Found Negative Constitutional: Negative for: Fever, Chills Musculoskeletal: Positive for: Leg Pain (right knee) Neurological: Negative for: Numbness Physical Exam - Reviewed Nursing Documentation Reviewed: Yes Vital Signs Reviewed: Yes - Physical Exam Comments: GENERAL APPEARANCE: Patient is awake, alert, oriented x 3, in no acute distress. SKIN: Warm, dry; (-) cyanosis. LOWER EXTREMITY: soft, healed vertical surgical scar on anterior aspect of right patella. (+) edema, (+) warmth, and (+) erythema. Limited range of motion secondary to pain. CARDIOVASCULAR: (+) distal pulse. NEUROLOGIC: (+) distal sensation. - ECG O2 Sat by Pulse Oximetry: 100 (RA) Pulse Ox Interpretation: Normal Medical Decision Making Medical Decision Making: Time: 132 Initial Plan: * Percocet 5/325mg PO * XR knee (right) * Ortho consult Time: 1424 --Case discussed with Dr. Watts. States he will see patient at bedside. Time: 1515 --XR knee (right) FINDINGS: BONES: Re- demonstrated is right total knee replacement. Hardware appears intact with satisfactory alignment. No evidence of acute displaced fracture nor dislocation. There appears to be mild prepatellar soft tissue swelling with small -medium-sized suprapatellar joint effusion JOINTS: As above. JOINT EFFUSION: As above OTHER FINDINGS: None. IMPRESSION: Re- demonstrated is right total knee replacement. Hardware appears intact with satisfactory alignment. No evidence of acute displaced fracture nor dislocation. There appears to be mild prepatellar soft tissue swelling with small -medium-sized suprapatellar joint effusion --Patient seen and evaluated by Dr. Plasencia in the ER, XRs reviewed by him. He recommends no weight bearing and to have pt f/u in his office in 1 week for re- evaluation. Patient feels comfortable and agrees with plan for outpt f/u. Scribe Attestation: Documented by Edita Sandhu, acting as a scribe for Britt Mcadams PA-C. Provider Scribe Attestation: All medical record entries made by the Scribe were at my direction and personally dictated by me. I have reviewed the chart and agree that the record accurately reflects my personal performance of the history, physical exam, medical decision making, and the department course for this patient. I have also personally directed, reviewed, and agree with the discharge instructions and disposition. Disposition - Clinical Impression Clinical Impression: Right knee sprain, Status post right knee replacement - Patient ED Disposition Is Patient to be Admitted: No Counseled Patient/Family Regarding: Studies Performed, Diagnosis, Need For Followup - Disposition Disposition: Routine/Home Disposition Time: 14:30 Condition: IMPROVED Additional Instructions: Thank you for letting us take care of you today. You were treated for R knee sprain, s/p knee replacement surgery. The emergency medical care you received today was directed at your acute symptoms. Rest, ice elevate, no weight bearing. Return to the Emergency Department if your symptoms worsen, do not improve, or if you have any other problems. Please follow up with Dr. Plasencia in 1 week for re-evaluation. Bring any paperwork you were given at discharge with you along with any medications you are taking to your follow up visit. Our treatment cannot replace ongoing medical care by a primary care provider (PCP) outside of the emergency department. Thank you for allowing the [facility] team to be part of your care today. Instructions: Knee Sprain (DC) Forms: [employer] (Zambian) - PA / GUARD [employer]MM[employer]RATION / Resident Statement MD/DO has reviewed & agrees with the documentation as recorded.
== END 2018-07-01 14:56 | disposition home or self-care (01) ==
LOC: H.ER 12:58
DX: S83.91XA Sprain of unspecified site of right knee, initial encounter (principal); W19.XXXA Unspecified fall, initial encounter; Y92.89 Other specified places as the place of occurrence of the external cause; Z96.651 Presence of right artificial knee joint

== ENCOUNTER 2018-07-10 10:51 | Emergency (ER) | payer BC ==
[2018-07-10 11:02] VITALS: BMI 27.1
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
[2018-07-10 12:04] LABS: BASO # 0.1 K/uL (0.0-0.2); BASO % 0.8 % (0.0-2.0); EOS # 0.2 K/uL (0.0-0.7); EOS % 3.7 % (0.0-4.0); HEMOGLOBIN 12.7 g/dL (12.0-18.0); LYMPH # 1.2 K/uL (1.0-4.3); LYMPH % 18.6 % (20.0-40.0); MEAN CELL VOLUME 88.8 fl (80.0-94.0); MEAN CORPUSCULAR HEMOGLOBIN 29.5 pg (27.0-31.0); MEAN CORPUSCULAR HGB CONC 33.3 g/dL (33.0-37.0); MEAN PLATELET VOLUME 7.6 fl (7.2-11.7); MONO # 0.7 K/uL (0.0-0.8); MONO % 10.9 % (0.0-10.0); NEUT # 4.4 K/uL (1.8-7.0); RBC 4.29 Mil/uL (4.40-5.90); RED CELL DISTRIBUTION WIDTH 14.1 % (11.5-14.5); WHITE BLOOD COUNT 6.6 K/uL (4.8-10.8)
[2018-07-10 12:07] LABS: VENOUS BLOOD GAS BASE EXCESS 7.4 mmol/L (0.0-2.0); VENOUS BLOOD GAS PCO2 62 mmHg (40-60); VENOUS BLOOD GAS PO2 22 mm/Hg (30-55); VENOUS BLOOD PH 7.36 (7.32-7.43)
[2018-07-10 12:07] LABS: INR 1.7; PROTHROMBIN TIME 19.3 Seconds (9.8-13.1)
[2018-07-10 12:10] LABS: PARTIAL THROMBOPLASTIN TIME 44.3 Seconds (25.6-37.1)
[2018-07-10] MEDS ORDERED: Oxycodone/Acetaminophen 5/325 mg Tab PO STA ×2 (12:23→17:08)
[2018-07-10 12:29] LABS: ALB/GLOB RATIO 1.2 (1.0-2.1); ALT/SGPT 34 U/L (21-72); AST/SGOT 20 U/L (17-59); BLOOD UREA NITROGEN 14 mg/dl (9-20); CALCIUM 9.6 mg/dL (8.4-10.2); GFR NON-AFRICAN AMERICAN > 60
[2018-07-10] MEDS ORDERED: Oxycodone/Acetaminophen 5/325 mg Tab ONE ×2 (12:54→17:16)
--- NOTE | 2018-07-10 15:55 | US ---
Date of service: 07/10/2018 PROCEDURE: Right lower extremity venous duplex Doppler. HISTORY: R/O DVT COMPARISON: None available. TECHNIQUE: Common femoral, superficial femoral, popliteal and posterior tibial veins were evaluated. Flow was assessed with color Doppler, compressibility, assessment of phasic flow and augmentation response. FINDINGS: COMMON FEMORAL VEIN: Unremarkable. SUPERFICIAL FEMORAL VEIN: Unremarkable. POPLITEAL VEIN: Unremarkable. POSTERIOR TIBIAL VEIN: Unremarkable. 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 Normal paired posterior tibialis veins are identified. IMPRESSION: No evidence of deep venous thrombosis in the right lower extremity.
[2018-07-10 16:40] VITALS: O2SAT 97
[2018-07-10 17:35] VITALS: BP 116/77; PULSE 89; RESP 20; TEMP 97.9
== END 2018-07-10 17:30 | disposition home or self-care (01) ==
LOC: H.ER 10:51
DX: M79.604 Pain in right leg (principal)

== ENCOUNTER 2018-07-16 10:49 | Emergency (ER) | payer BC ==
[2018-07-16 10:50] VITALS: BMI 27.1
[2018-07-16 11:03] VITALS: PULSE 87; TEMP 98
[2018-07-16 11:22] VITALS: BP 136/98; RESP 18; O2SAT 98
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
[2018-07-16 12:37] LABS: BASO # 0.1 K/uL (0.0-0.2); EOS # 0.2 K/uL (0.0-0.7); HEMOGLOBIN 14.2 g/dL (12.0-18.0); LYMPH # 1.6 K/uL (1.0-4.3); LYMPH % 19.9 % (20.0-40.0); MEAN CELL VOLUME 87.6 fl (80.0-94.0); MEAN CORPUSCULAR HEMOGLOBIN 30.1 pg (27.0-31.0); MEAN CORPUSCULAR HGB CONC 34.3 g/dL (33.0-37.0); MEAN PLATELET VOLUME 7.7 fl (7.2-11.7); MONO # 0.6 K/uL (0.0-0.8); MONO % 8.1 % (0.0-10.0); NEUT # 5.3 K/uL (1.8-7.0); NRBC % 0.1 % (0.0-0.0); RBC 4.73 Mil/uL (4.40-5.90); RED CELL DISTRIBUTION WIDTH 14.4 % (11.5-14.5); WHITE BLOOD COUNT 7.8 K/uL (4.8-10.8)
[2018-07-16] MEDS ORDERED: Morphine 4 MG/ML VIAL ONE (14:00)
[2018-07-16 14:30] LABS: ALB/GLOB RATIO 1.4 (1.0-2.1); ALBUMIN 3.9 g/dL (3.5-5.0); ALT/SGPT 32 U/L (21-72); AST/SGOT 20 U/L (17-59); BLOOD UREA NITROGEN 11 mg/dl (9-20); CALCIUM 9.6 mg/dL (8.4-10.2); GFR NON-AFRICAN AMERICAN > 60
--- NOTE | 2018-07-16 14:48 | US ---
Right lower extremity ultrasound. Indication: Pain, history of DVT Technique: Duplex ultrasound evaluation of the right lower extremity Comparison: Lower extremity ultrasound performed 07/10/18 Findings: There is normal flow, compressibility, and augmentation of the right common femoral, femoral, and popliteal veins. 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 Duplication of the popliteal vein is not appreciated. The right posterior tibial vein appears patent. Enlarged right inguinal lymph nodes, nonspecific. Impression: No evidence of deep venous thrombosis in the right lower extremity. Enlarged right inguinal lymph nodes, nonspecific.
--- NOTE | 2018-07-16 19:08 | CT ---
Date of service: 07/16/2018 PROCEDURE: CT RIGHT KNEE NONCONTRAST HISTORY: pain, swelling, knee replacement 06/03 COMPARISON: Right Knee Radiographs 07/01/2018. TECHNIQUE: A volumetric CT acquisition was performed using axial technique through the right knee with reformatted datasets provided in multiple planes. Intravenous contrast not administered for this examination. Contrast Dose: None Radiation dose:Total exam DLP = 364.73 mGy-cm. This CT exam was performed using one or more of the following dose reduction techniques: Automated exposure control, adjustment of the mA and/or kV according to patient size, and/or use of iterative reconstruction technique. FINDINGS: No fracture or destructive bony lesion appreciable. No subluxation or dislocation. Knee patient status post right shoulder replacement with no interval change in appearance of the distal femoral and proximal tibial hardware. The patella stable in appearance as well. No loosening is appreciated or suspicious cortication or erosion related to the prosthetic components. No suspicious lytic or blastic change identified. Limited pretibial soft tissue edema is appreciate including the dermis which could reflect cellulitis or postoperative fibrosis even. No emphysematous changes are appreciated. No suspicious fluid collection is identified although minimal bursitis is noted. Clinically correlate. Limitations: Artifacts from metallic prosthetic hardware. IMPRESSION: No fracture, subluxation or dislocation. Artifacts are generated by metallic prosthetic hardware from right total knee replacement. These components nevertheless appear grossly intact without evidence of loosening at this time or fracture. Bursitis is noted as well as prepatellar soft tissue edema or even possible postoperative fibrosis. No emphysema soft tissue change or prominent fluid collection identified. Clinically correlate further. Concordant preliminary report from [facility], 07/16/2018.
== END 2018-07-16 19:27 | disposition home or self-care (01) ==
LOC: H.ER 10:49
DX: L03.115 Cellulitis of right lower limb (principal); Z96.651 Presence of right artificial knee joint; I10 Essential (primary) hypertension; E78.00 Pure hypercholesterolemia, unspecified; Z82.49 Family history of ischemic heart disease and other diseases of the circulatory system; Z86.718 Personal history of other venous thrombosis and embolism; J44.9 Chronic obstructive pulmonary disease, unspecified
CPT/HCPCS: 73700; 80053; 85025; 87040; 93971; 96374; 99283; J2270

== ENCOUNTER 2018-07-23 12:08 | Inpatient (IN) | payer BC ==
[2018-07-23 12:08] VITALS: BMI 27.1
[2018-07-23] MEDS ORDERED: Sodium Chloride 0.9% 1,000 ML IV STA (13:00)
[2018-07-23] MEDS ORDERED: Vancomycin 1 g Inj ONE ×2 (13:47→13:57)
[2018-07-23 13:52] LABS: VENOUS BLOOD GAS BASE EXCESS 5.6 mmol/L (0.0-2.0); VENOUS BLOOD GAS PCO2 60 mmHg (40-60); VENOUS BLOOD GAS PO2 16 mm/Hg (30-55); VENOUS BLOOD PH 7.35 (7.32-7.43)
[2018-07-23 13:56] LABS: INR 1.7; PROTHROMBIN TIME 18.6 Seconds (9.8-13.1)
[2018-07-23 13:59] LABS: PARTIAL THROMBOPLASTIN TIME 41.4 Seconds (25.6-37.1)
[2018-07-23] MEDS ORDERED: Morphine 4 MG/ML VIAL ONE ×2 (13:59→16:09)
[2018-07-23 14:01] LABS: BASO # 0.1 K/uL (0.0-0.2); BASO % 0.8 % (0.0-2.0); EOS # 0.2 K/uL (0.0-0.7); EOS % 3.4 % (0.0-4.0); HEMOGLOBIN 13.1 g/dL (12.0-18.0); LYMPH # 1.6 K/uL (1.0-4.3); LYMPH % 22.3 % (20.0-40.0); MEAN CELL VOLUME 87.6 fl (80.0-94.0); MEAN CORPUSCULAR HEMOGLOBIN 29.6 pg (27.0-31.0); MEAN CORPUSCULAR HGB CONC 33.8 g/dL (33.0-37.0); MEAN PLATELET VOLUME 7.9 fl (7.2-11.7); MONO # 0.7 K/uL (0.0-0.8); MONO % 8.9 % (0.0-10.0); NEUT # 4.8 K/uL (1.8-7.0); NEUT % 64.6 % (50.0-75.0); NRBC % 0.1 % (0.0-0.0); RBC 4.43 Mil/uL (4.40-5.90); RED CELL DISTRIBUTION WIDTH 14.5 % (11.5-14.5); WHITE BLOOD COUNT 7.4 K/uL (4.8-10.8)
[2018-07-23 14:04] LABS: ALB/GLOB RATIO 1.5 (1.0-2.1); ALBUMIN 4.4 g/dL (3.5-5.0); ALT/SGPT 37 U/L (21-72); AST/SGOT 27 U/L (17-59); BLOOD UREA NITROGEN 18 mg/dl (9-20); GFR NON-AFRICAN AMERICAN > 60
--- NOTE | 2018-07-23 14:51 | ED PDOC ---
Lower Extremity Pain/Injury Time Seen by Provider: 07/23/18 12:38 Chief Complaint (Nursing): Lower Extremity Problem/Injury Chief Complaint (Provider): Right knee pain, swelling and redness History Per: Patient History/Exam Limitations: no limitations Onset/Duration Of Symptoms: Days Current Symptoms Are (Timing): Still Present Additional Complaint(s): 58 yo male sent in by Dr. Plasencia for evaluation of continued right knee pain and swelling. Pt was seen in Dr. Plasencia's office today and sent directly to ER. Pt reports taking bactrim as prescribed. Pt reports tactile fever in the evening. PMD: Dr. Hassan. 06/03 - Knee replacement by Dr. Plasencia. 06/17 - Placed on Xerelto for DVT in LE. 07/01 - ER visit after twist and fall. Normal XR. Seen by Dr. Plasencia in ER. 07/10 - ER visit for evaluation of swelling and pain to knee. Placed on levaquin 07/09/[address] Plasencia. No DVT on US. Labs WNL. 07/20 - Return to ER for evaluation. (+) pain, swelling, redness. Pt placed on Bactrim. Normal wbc. Past Medical History Vital Signs: Last Vital Signs Temp 97.5 F L 07/23/18 14:23 Pulse 79 07/23/18 14:23 Resp 18 07/23/18 14:23 BP 113/65 07/23/18 14:23 Pulse Ox 97 07/23/18 14:23 - Medical History PMH: Arthritis, COPD, Fractures, Gastritis (HEARTBURN), HTN, Hypercholesterolemia Denies: HIV, Chronic Kidney Disease - Surgical History Surgical History: Hernia Repair - Family History Family History: States: Unknown Family Hx, CAD - Home Medications Home Medications: Ambulatory Orders Medication Instructions Recorded Gabapentin [Neurontin] 600 mg PO TID 03/21/18 Losartan [Cozaar] 25 mg PO DAILY 03/21/18 Docusate [Colace] 100 mg PO BID cap 06/04/18 Ferrous Sulfate [Feosol] 325 mg PO BID tab 06/04/18 Folic Acid 1 mg PO DAILY tab 06/04/18 oxyCODONE [oxyCODONE Immediate 10 mg PO Q4H PRN 2 Days tab 06/04/18 Release Tab] Calcium Carbonate [Oscal] 500 mg PO DAILY #30 tab 06/16/18 Celecoxib [celeBREX] 100 mg PO Q12 #60 cap 06/16/18 Cholecalciferol [Vitamin D 1000 IU] 2,000 intlu PO DAILY #30 tab 06/16/18 Rivaroxaban [Xarelto] 15 mg PO BID #60 tab 06/16/18 - Allergies Allergies/Adverse Reactions: Allergies Allergy/AdvReac Type Severity Reaction Status Date / Time No Known Allergies Allergy Verified 07/23/18 12:47 Physical Exam - Reviewed Nursing Documentation Reviewed: Yes Vital Signs Reviewed: Yes - Physical Exam Appears: Positive for: Well, Non-toxic, No Acute Distress Head Exam: Positive for: ATRAUMATIC, NORMAL INSPECTION, NORMOCEPHALIC Skin: Positive for: Normal Color, Warm, DRY Eye Exam: Positive for: Normal appearance ENT: Positive for: Normal ENT Inspection Neck: Positive for: Normal, Painless ROM Cardiovascular/Chest: Positive for: Regular Rate, Rhythm Respiratory: Positive for: Normal Breath Sounds. Negative for: Accessory Muscle Use, Respiratory Distress Back: Positive for: Normal Inspection Extremity: Positive for: Tenderness (Anterior knee, (+) erythema, warm to the touch ), Swelling. Negative for: Normal ROM, Deformity Neurologic/Psych: Positive for: Alert, Oriented - Laboratory Results Result Diagrams: 07/23/18 13:30 07/23/18 13:30 - ECG O2 Sat by Pulse Oximetry: 97 Medical Decision Making Medical Decision Making: Pt failed an out-patient course of Levaquin and bactrim. Pt without improvement of symptoms. Exam remains the same from previous visit. Disposition - Clinical Impression Clinical Impression: Cellulitis of leg, right, Failure of outpatient treatment - Patient ED Disposition Is Patient to be Admitted: Yes - Disposition Disposition Time: 13:59 Condition: STABLE
[2018-07-23] MEDS ORDERED: Dextrose 5%/0.45% NS 1,000 ML IV SCH (20:30)
--- NOTE | 2018-07-23 20:31 | CP.PCM.PN ---
Subjective - Date & Time of Evaluation Date of Evaluation: 07/23/18 Time of Evaluation: 20:30 - Subjective Subjective: I D NOTE PATIENT EXAMINED ,EMR REVIEWED DISCUSSED HISTORY c PATIENT SPOKE c EARLIER IN DAY CT REVIEWED HAVE STARTED VANCOMYCIN/MAXIPEME LABS ORDERED Objective - Vital Signs/Intake and Output Vital Signs (last 24 hours): Temp Pulse Resp BP Pulse Ox 97.9 F 72 18 118/70 98 07/23/18 19:00 07/23/18 19:00 07/23/18 19:00 07/23/18 19:00 07/23/18 19:00 - Medications Medications: Current Medications Vancomycin HCl 1 gm/ Sodium (Chloride) 250 mls @ 166.667 mls/hr IVPB DAILY [facility] PRN Reason: Protocol Last Admin: 07/23/18 13:20 Dose: 166.667 mls/hr Vancomycin HCl 1 gm/ Sodium (Chloride) 250 mls @ 166.667 mls/hr IVPB Q12 [facility] PRN Reason: Protocol Cefepime HCl 1 gm/ Sodium (Chloride) 100 mls @ 100 mls/hr IVPB Q12 [facility] PRN Reason: Protocol - Labs Labs: 07/23/18 13:30 07/23/18 13:30 PT 18.6 Seconds (9.8-13.1) H 07/23/18 13:30 INR 1.7 07/23/18 13:30 APTT 41.4 Seconds (25.6-37.1) H 07/23/18 13:30
[2018-07-23] MEDS: Cefepime 1 GM in Sodium Chloride 0.9% 100 ML IVPB SCH (22:54)
[2018-07-24 06:41] LABS: BASO # 0.1 K/uL (0.0-0.2); BASO % 1.2 % (0.0-2.0); EOS # 0.4 K/uL (0.0-0.7); EOS % 6.2 % (0.0-4.0); HEMOGLOBIN 12.2 g/dL (12.0-18.0); LYMPH # 1.7 K/uL (1.0-4.3); LYMPH % 25.2 % (20.0-40.0); MEAN CELL VOLUME 87.8 fl (80.0-94.0); MEAN CORPUSCULAR HEMOGLOBIN 29.6 pg (27.0-31.0); MEAN CORPUSCULAR HGB CONC 33.8 g/dL (33.0-37.0); MEAN PLATELET VOLUME 7.8 fl (7.2-11.7); MONO # 0.7 K/uL (0.0-0.8); MONO % 10.9 % (0.0-10.0); NEUT # 3.8 K/uL (1.8-7.0); NEUT % 56.5 % (50.0-75.0); RBC 4.13 Mil/uL (4.40-5.90); RED CELL DISTRIBUTION WIDTH 14.2 % (11.5-14.5); WHITE BLOOD COUNT 6.7 K/uL (4.8-10.8)
[2018-07-24 07:36] LABS: BLOOD UREA NITROGEN 17 mg/dl (9-20); CALCIUM 9.3 mg/dL (8.4-10.2); GFR NON-AFRICAN AMERICAN > 60
--- NOTE | 2018-07-24 08:53 | CP.PCM.CON ---
History of Present Illness - History of Present Illness History of Present Illness: Orthopedic consultation: Dr. Plasencia Patient is a 58 y/o male with PMH of HTN, CAD, COPD, hypercholesterolemia who presents due to severe right knee pain and redness. He has had right total knee replacement on 06/03/18 and was discharged to TCU then to home stable. He has been attending outpt PT. Three weeks ago, he experienced right knee pain, LE swelling and redness pain which has progressed. This has limited his daily activities for the last few weeks. Currently the pain is moderate, dull and aching in quality and intermittent. The pain worsens with activity/bending and alleviates with rest. He is been followed by Dr. Calderón for chronic pain. He denies radiation of pain, numbness and tingling. He also denies CP/SOB/N/V/D/ fever/dysuria/melena. Review of Systems - Review of Systems All systems: reviewed and no additional remarkable complaints except Review of Systems: as per HPI Past Patient History - Infectious Disease Hx of Infectious Diseases: None - Past Medical History & Family History Past Medical History?: Yes Past Family History: Reviewed and not pertinent - Past Social History Smoking Status: Never Smoked Alcohol: None Drugs: Denies - CARDIAC Hx Cardiac Disorders: Yes Hx Hypercholesterolemia: Yes Hx Hypertension: Yes - PULMONARY Hx Respiratory Disorders: Yes Hx Chronic Obstructive Pulmonary Disease (COPD): Yes - NEUROLOGICAL Hx Neurological Disorder: No - HEENT Hx HEENT Problems: No - RENAL Hx Chronic Kidney Disease: No - ENDOCRINE/METABOLIC Hx Endocrine Disorders: No - HEMATOLOGICAL/ONCOLOGICAL Hx Human Immunodeficiency Virus (HIV): No - INTEGUMENTARY Hx Dermatological Problems: No - MUSCULOSKELETAL/RHEUMATOLOGICAL Hx Musculoskeletal Disorders: Yes Hx Arthritis: Yes Hx Falls: Yes Hx Fractures: Yes - GASTROINTESTINAL Hx Gastrointestinal Disorders: Yes Hx Gastritis: Yes (HEARTBURN) - GENITOURINARY/GYNECOLOGICAL Hx Genitourinary Disorders: No - PSYCHIATRIC Hx Psychophysiologic Disorder: No Hx Emotional Abuse: No Hx Physical Abuse: No Hx Substance Use: No - SURGICAL HISTORY Hx Surgeries: Yes Hx Angioplasty: Yes (nov 22) Hx Arthroscopy: Yes (BILATERAL KNEES arthroscopies) Hx Cardiac Catheterization: Yes Hx Herniorrhaphy: Yes (40+ years ago right inguinal) Hx Orthopedic Surgery: Yes (right hand fifth metacarpal ORIF) Other/Comment: rt. knee replacement-06/03/18 - ANESTHESIA Hx Anesthesia: Yes Hx Anesthesia Reactions: No Hx Malignant Hyperthermia: No Meds Allergies/Adverse Reactions: Allergies Allergy/AdvReac Type Severity Reaction Status Date / Time No Known Allergies Allergy Verified 07/23/18 12:47 - Medications Medications: Current Medications Calcium Carbonate (Oscal) 500 mg PO DAILY [facility] Last Admin: 07/24/18 08:09 Dose: 500 mg Docusate Sodium (Colace) 100 mg PO BID [facility] Last Admin: 07/24/18 08:06 Dose: 100 mg Ferrous Sulfate (Feosol) 325 mg PO BID [facility] Last Admin: 07/24/18 08:08 Dose: 325 mg Folic Acid (Folic Acid) 1 mg PO DAILY [facility] Last Admin: 07/24/18 08:09 Dose: 1 mg Gabapentin (Neurontin) 600 mg PO TID [facility] Last Admin: 07/24/18 08:09 Dose: 600 mg Vancomycin HCl 1 gm/ Sodium (Chloride) 250 mls @ 166.667 mls/hr IVPB Q12@0800, 2000 [facility] PRN Reason: Protocol Last Admin: 07/24/18 08:10 Dose: 166.667 mls/hr Cefepime HCl 1 gm/ Sodium (Chloride) 100 mls @ 100 mls/hr IVPB Q12 [facility] PRN Reason: Protocol Last Admin: 07/23/18 22:54 Dose: 100 mls/hr Dextrose/Sodium Chloride (Dextrose 5%/0.45% Ns 1000 Ml) 1,000 mls @ 40 mls/hr IV .Q24H [facility] Stop: 07/24/18 20:28 Last Admin: 07/23/18 22:55 Dose: 40 mls/hr Losartan Potassium (Cozaar) 25 mg PO DAILY [facility] Last Admin: 07/24/18 08:06 Dose: 25 mg Morphine Sulfate (Morphine) 4 mg IVP Q6 PRN PRN Reason: Pain, severe (8-10) Last Admin: 07/24/18 04:30 Dose: 4 mg Zolpidem Tartrate (Ambien) 10 mg PO HS PRN PRN Reason: Insomnia Last Admin: 07/23/18 22:54 Dose: 10 mg Physical Exam - Constitutional Appears: Well, No Acute Distress - Head Exam Head Exam: ATRAUMATIC, NORMOCEPHALIC - Eye Exam Eye Exam: EOMI, Normal appearance, PERRL - ENT Exam ENT Exam: Mucous Membranes Moist - Respiratory Exam Respiratory Exam: Clear to Auscultation Bilateral, NORMAL BREATHING PATTERN - Cardiovascular Exam Cardiovascular Exam: +S1, +S2 - GI/Abdominal Exam GI & Abdominal Exam: Normal Bowel Sounds, Soft - Extremities Exam Additional comments: R knee: Surgical wound clean dry intact, no drainage widespread redness, +swelling, +tenderness diffuse ROM 0-45 degrees sensation intact SP/DP/TN motor intact EHL/FHL/TA/G pedal pulses intact comps soft NT - Neurological Exam Neurological exam: Alert, Oriented x3 - Psychiatric Exam Psychiatric exam: Normal Affect, Normal Mood - Skin Skin Exam: Normal Color, Warm Results - Vital Signs Recent Vital Signs: Last Vital Signs Temp 98 F 07/24/18 08:21 Pulse 69 07/24/18 08:21 Resp 18 07/24/18 08:21 BP 134/83 07/24/18 08:21 Pulse Ox 99 07/24/18 08:21 - Labs Result Diagrams: 07/24/18 05:50 07/24/18 05:50 Labs: Laboratory Results - last 24 hr 07/23/18 07/23/18 07/23/18 13:13 13:30 13:30 WBC 7.4 RBC 4.43 Hgb 13.1 Hct 38.8 MCV 87.6 MCH 29.6 MCHC 33.8 RDW 14.5 Plt Count 341 MPV 7.9 Neut % (Auto) 64.6 Lymph % (Auto) 22.3 Dent % (Auto) 8.9 Eos % (Auto) 3.4 Baso % (Auto) 0.8 Neut # (Auto) 4.8 Lymph # (Auto) 1.6 Dent # (Auto) 0.7 Eos # (Auto) 0.2 Baso # (Auto) 0.1 ESR PT INR APTT pO2 16 L VBG pH 7.35 VBG pCO2 60 VBG HCO3 27.7 VBG Total CO2 34.9 H VBG O2 Sat (Calc) 40.4 VBG Base Excess 5.6 H VBG Potassium 4.0 Sodium 137.0 140 Chloride 102.0 100 Glucose 136 H Lactate 1.4 FiO2 21.0 Potassium 4.2 Carbon Dioxide 32 H Anion Gap 12 BUN 18 Creatinine 0.8 Est GFR ( Amer) > 60 Est GFR (Non-Af Amer) > 60 Random Glucose 121 H Calcium 10.0 Total Bilirubin 0.4 AST 27 ALT 37 Alkaline Phosphatase 60 Total Protein 7.4 Albumin 4.4 Globulin 3.0 Albumin/Globulin Ratio 1.5 Venous Blood Potassium 4.0 07/23/18 07/24/18 07/24/18 13:30 05:50 05:50 WBC 6.7 RBC 4.13 L Hgb 12.2 Hct 36.3 MCV 87.8 MCH 29.6 MCHC 33.8 RDW 14.2 Plt Count 296 MPV 7.8 Neut % (Auto) 56.5 Lymph % (Auto) 25.2 Dent % (Auto) 10.9 H Eos % (Auto) 6.2 H Baso % (Auto) 1.2 Neut # (Auto) 3.8 Lymph # (Auto) 1.7 Dent # (Auto) 0.7 Eos # (Auto) 0.4 Baso # (Auto) 0.1 ESR 16 PT 18.6 H INR 1.7 APTT 41.4 H pO2 VBG pH VBG pCO2 VBG HCO3 VBG Total CO2 VBG O2 Sat (Calc) VBG Base Excess VBG Potassium Sodium 140 Chloride 103 Glucose Lactate FiO2 Potassium 4.7 Carbon Dioxide 32 H Anion Gap 10 BUN 17 Creatinine 0.9 Est GFR ( Amer) > 60 Est GFR (Non-Af Amer) > 60 Random Glucose 104 Calcium 9.3 Total Bilirubin AST ALT Alkaline Phosphatase Total Protein Albumin Globulin Albumin/Globulin Ratio Venous Blood Potassium Assessment & Plan (1) Cellulitis of leg, right Assessment and Plan: Patient admitted due to RLE cellulitis vs Erysipelas -conservative management -IV abx as per Dr. Parks -PT/OT WBAT -recommend repeat LE duplex to R/o DVT -no indication for surgical intervention at this time -above d/w Dr. Plasencia in agreement Status: Acute (2) Status post right knee replacement Assessment and Plan: orthopedically stable Status: Acute - Date & Time Date: 07/24/18 Time: 07:30
[2018-07-24] MEDS: Cefepime 1 GM in Sodium Chloride 0.9% 100 ML IVPB SCH ×2 (10:03→20:54)
[2018-07-24] MEDS ORDERED: Lidocaine 1% 5ml Abboject ONE (14:18)
--- NOTE | 2018-07-24 14:38 | PCM.SURG1 ---
Surgeon's Initial Post Op Note - Surgeon's Notes Surgeon: Abdelrahman Segura MD Motion Picture Director: NONE Type of Anesthesia: Local Pre-Operative Diagnosis: Knee infection Operative Findings: US showed a patent right basilic vein. Post-Operative Diagnosis: Knee infection Operation Performed: Single lumen picc placement right arm, 40 CM, via the basilic vein. Tip is in the SVC. Specimen/Specimens Removed: NONE Estimated Blood Loss: EBL {In ML}: 2 Blood Products Given: N/A Drains Used: No Drains Post-Op Condition: Fair Date of Surgery/Procedure: 07/24/18 Time of Surgery/Procedure: 14:35
--- NOTE | 2018-07-24 15:55 | VASCULAR ---
PROCEDURE: Date of procedure: 07/24/2018 Procedure: 1. Placement of a right arm PICC with ultrasound and fluoroscopic guidance, CPT 14286 2. PICC tip confirmation with spot radiograph and is in the superior vena cava Medications: 1 percent lidocaine Total Fluoro time: 23.2 seconds Radiation: 3.58 MGy EBL: 2 cc HISTORY: Infection requiring long-term IV antibiotics TECHNIQUE: Following informed consent and procedure time-out, the patient was placed supine on the interventional table and the right arm prepped and draped in the usual sterile fashion. Ultrasound showed a patent and compressible right basilic vein. After the skin was anesthetized with lidocaine, the basilic vein was accessed with micro micropuncture technique using ultrasound guidance. A guidewire was then advanced under fluoroscopic guidance into the superior vena cava. An image documenting ultrasound guidance for vascular access was permanently saved. The length of the single-lumen 4 [place] PICC was trimmed to 40 centimeters and advanced through a peel-away sheath. The PICC was position with tip of PICC confirm a spot radiograph the superior vena cava. The PICC was secured to the patient's skin. The PICC was flushed. A biopatch and sterile dressing was applied. IMPRESSION: Placement of a single-lumen 4 [place] PICC trimmed to 40 centimeters via right basilic vein. The tip of the PICC is confirmed with spot radiograph and is in the superior vena cava.
--- NOTE | 2018-07-24 20:45 | HP ---
HISTORY OF PRESENT ILLNESS: Mr. Dang is a 58-year-old male who was admitted via the emergency room after he did a visit to Dr. Plasencia, his orthopedic surgeon and was found to have an infected right knee with severe cellulitis and tenderness. He is status post right total knee replacement about 7 weeks ago and has been to the emergency room on multiple occasions because of right knee pain. All workup in the emergency room has been noncontributory. He had been placed on oral antibiotics x2, but symptoms, however, persisted. He therefore sought help at the orthopedic surgeon's office and was referred back to the emergency room for admission for IV antibiotic therapy and possible surgical intervention regarding right knee infection. PAST MEDICAL HISTORY: He has a past medical history of arthritis, status post right total knee replacement, also has a recent deep venous thrombosis of the lower extremity, and hypertension. FAMILY HISTORY: Noncontributory. SOCIAL HISTORY: Socially, he does not smoke or drink. REVIEW OF SYSTEMS: Essentially remarkable for right knee pain and fever with chills and night sweats. PHYSICAL EXAMINATION: GENERAL: The patient is alert and oriented, appears to be in moderate distress. VITAL SIGNS: Blood pressure 113/65 with a pulse of 79, respiratory rate 18. He is febrile. Temperature of 97.5 degrees Fahrenheit, O2 sat 97% on room air. SKIN: Shows fair turgor. HEENT: Pupils are equal and reactive to light and accommodation. JVP flat. Mouth shows fair hygiene. LUNGS: Clear. HEART: Regular. No murmurs or gallop. ABDOMEN: Soft, nontender. No organomegaly. EXTREMITIES: There is redness, tenderness, and swelling of right knee, scar from surgery healed. CENTRAL NERVOUS SYSTEM: Exam is grossly intact. LABORATORY DATA: WBC 7.4, hemoglobin 13.1, platelet count 341,000. Sodium 140, potassium 4.2, BUN 18, creatinine 0.9, serum glucose 121. IMPRESSION: Cellulitis of right knee, status post right total knee replacement, history of hypertension. PLAN: Intravenous antibiotics. Infectious Disease evaluation. Orthopedic reevaluation regarding any form of surgical intervention, right knee. The patient will probably benefit from IV antibiotic therapy in subacute care prior to being discharged home. Jose Guadalupe Hassan MD [facility] # [id number]
[2018-07-25] VITALS: RESP 20
[2018-07-25] MEDS: Cefepime 1 GM in Sodium Chloride 0.9% 100 ML IVPB SCH (08:17)
[2018-07-25 08:23] VITALS: BP 130/65; PULSE 80
--- NOTE | 2018-07-25 08:32 | CP.PCM.DIS ---
Provider - Provider Date of Admission: 07/23/18 14:44 Attending physician: Jose Guadalupe Hassan MD Time Spent in preparation of Discharge (in minutes): 30 Diagnosis - Discharge Diagnosis (1) Cellulitis of leg, right Status: Acute (2) Failure of outpatient treatment Status: Acute (3) Deep venous thrombosis Status: Acute (4) Hyperlipidemia Status: Acute (5) Hypertension Status: Acute (6) Leg pain Status: Acute (7) Osteoarthritis of right knee Status: Acute (8) Status post right knee replacement Status: Acute (9) Vitamin D deficiency Status: Acute Hospital Course - Lab Results Lab Results: Micro Results 07/23/18 13:30 Blood-Venous Blood Culture - Preliminary NO GROWTH AFTER 24 HOURS 07/23/18 13:18 Blood-Venous Blood Culture - Preliminary NO GROWTH AFTER 24 HOURS Most Recent Lab Values WBC 6.7 K/uL (4.8-10.8) 07/24/18 05:50 RBC 4.13 Mil/uL (4.40-5.90) L 07/24/18 05:50 Hgb 12.2 g/dL (12.0-18.0) 07/24/18 05:50 Hct 36.3 % (35.0-51.0) 07/24/18 05:50 MCV 87.8 fl (80.0-94.0) 07/24/18 05:50 MCH 29.6 pg (27.0-31.0) 07/24/18 05:50 MCHC 33.8 g/dL (33.0-37.0) 07/24/18 05:50 RDW 14.2 % (11.5-14.5) 07/24/18 05:50 Plt Count 296 K/uL (130-400) 07/24/18 05:50 MPV 7.8 fl (7.2-11.7) 07/24/18 05:50 Neut % (Auto) 56.5 % (50.0-75.0) 07/24/18 05:50 Lymph % (Auto) 25.2 % (20.0-40.0) 07/24/18 05:50 Routt % (Auto) 10.9 % (0.0-10.0) H 07/24/18 05:50 Eos % (Auto) 6.2 % (0.0-4.0) H 07/24/18 05:50 Baso % (Auto) 1.2 % (0.0-2.0) 07/24/18 05:50 Neut # (Auto) 3.8 K/uL (1.8-7.0) 07/24/18 05:50 Lymph # (Auto) 1.7 K/uL (1.0-4.3) 07/24/18 05:50 Routt # (Auto) 0.7 K/uL (0.0-0.8) 07/24/18 05:50 Eos # (Auto) 0.4 K/uL (0.0-0.7) 07/24/18 05:50 Baso # (Auto) 0.1 K/uL (0.0-0.2) 07/24/18 05:50 ESR 16 mm/hr (0-20) 07/24/18 05:50 PT 18.6 Seconds (9.8-13.1) H 07/23/18 13:30 INR 1.7 07/23/18 13:30 APTT 41.4 Seconds (25.6-37.1) H 07/23/18 13:30 pO2 16 mm/Hg (30-55) L 07/23/18 13:13 VBG pH 7.35 (7.32-7.43) 07/23/18 13:13 VBG pCO2 60 mmHg (40-60) 07/23/18 13:13 VBG HCO3 27.7 mmol/L 07/23/18 13:13 VBG Total CO2 34.9 mmol/L (22-28) H 07/23/18 13:13 VBG O2 Sat (Calc) 40.4 % (40-65) 07/23/18 13:13 VBG Base Excess 5.6 mmol/L (0.0-2.0) H 07/23/18 13:13 VBG Potassium 4.0 mmol/L (3.6-5.2) 07/23/18 13:13 Sodium 137.0 mmol/L (132-148) 07/23/18 13:13 Chloride 102.0 mmol/L (98-107) 07/23/18 13:13 Glucose 136 mg/dL (75-110) H 07/23/18 13:13 Lactate 1.4 mmol/L (0.7-2.1) 07/23/18 13:13 FiO2 21.0 % 07/23/18 13:13 Sodium 140 mmol/l (132-148) 07/24/18 05:50 Potassium 4.7 MMOL/L (3.6-5.0) 07/24/18 05:50 Chloride 103 mmol/L (98-107) 07/24/18 05:50 Carbon Dioxide 32 mmol/L (22-30) H 07/24/18 05:50 Anion Gap 10 (10-20) 07/24/18 05:50 BUN 17 mg/dl (9-20) 07/24/18 05:50 Creatinine 0.9 mg/dl (0.8-1.5) 07/24/18 05:50 Est GFR ( Amer) > 60 07/24/18 05:50 Est GFR (Non-Af Amer) > 60 07/24/18 05:50 Random Glucose 104 mg/dL (75-110) 07/24/18 05:50 Calcium 9.3 mg/dL (8.4-10.2) 07/24/18 05:50 Total Bilirubin 0.4 mg/dl (0.2-1.3) 07/23/18 13:30 AST 27 U/L (17-59) 07/23/18 13:30 ALT 37 U/L (21-72) 07/23/18 13:30 Alkaline Phosphatase 60 U/L (38-126) 07/23/18 13:30 Total Protein 7.4 G/DL (6.3-8.2) 07/23/18 13:30 Albumin 4.4 g/dL (3.5-5.0) 07/23/18 13:30 Globulin 3.0 gm/dL (2.2-3.9) 07/23/18 13:30 Albumin/Globulin Ratio 1.5 (1.0-2.1) 07/23/18 13:30 Procalcitonin < 0.05 NG/ML (0.19-0.49) L 07/24/18 05:50 Venous Blood Potassium 4.0 mmol/L (3.6-5.2) 07/23/18 13:13 - Hospital Course Hospital Course: pain and redness of r knee improving with therapy Discharge Exam - Head Exam Head Exam: ATRAUMATIC, NORMOCEPHALIC - Eye Exam Eye Exam: EOMI, Normal appearance, PERRL Pupil Exam: NORMAL ACCOMODATION, PERRL - GI/Abdominal Exam GI & Abdominal Exam: Normal Bowel Sounds - Rectal Exam Rectal Exam: NORMAL INSPECTION - Extremities Exam Extremities exam: joint swelling, tenderness - Neurological Exam Neurological exam: Abnormal Gait, Alert, CN II-XII Intact, Oriented x3, Reflexes Normal - Psychiatric Exam Psychiatric exam: Normal Affect, Normal Mood - Skin Skin Exam: Dry, Intact, Warm Discharge Plan - Follow Up Plan Condition: STABLE Disposition: HOME/ ROUTINE Patient education suggested?: Yes Instructions: Cellulitis and Erysipelas (Skin Infections) Additional Instructions: discharge to subacute care on iv antibiotics
[2018-07-25 08:47] VITALS: TEMP 98.1; O2SAT 96
--- NOTE | 2018-07-25 11:34 | US ---
Date of service: 07/25/2018 PROCEDURE: Right lower extremity venous duplex Doppler. HISTORY: r/o RLE DVT COMPARISON: None available. TECHNIQUE: Common femoral, superficial femoral, popliteal and posterior tibial veins were evaluated. Flow was assessed with color Doppler, compressibility, assessment of phasic flow and augmentation response. FINDINGS: COMMON FEMORAL VEIN: Unremarkable. SUPERFICIAL FEMORAL VEIN: Unremarkable. POPLITEAL VEIN: Unremarkable. POSTERIOR TIBIAL VEIN: Unremarkable. OTHER FINDINGS: None. IMPRESSION: No evidence of deep venous thrombosis in the right lower extremity.
== END 2018-07-25 14:40 | DRG 603 ==
LOC: H.ER 12:08 → H.ERHOLD 14:44 → H.TEL 15:47 → H.ERHOLD 15:53 → H.MEDSURG1 18:45 → UNDODISIN 07-25 14:36
PROVIDERS: ADMIT Internal Medicine Pulmonary Disease; ATTEND Internal Medicine Pulmonary Disease
PROC: 02HV33Z Insertion of Infusion Device into Superior Vena Cava, Percutaneous Approach (ICD-10-PCS; principal; 2018-07-24)
PROC: B518ZZA Fluoroscopy of Superior Vena Cava, Guidance (ICD-10-PCS; 2018-07-24)
PROC: 3E04329 Introduction of Other Anti-infective into Central Vein, Percutaneous Approach (ICD-10-PCS; 2018-07-24)
DX: L03.115 Cellulitis of right lower limb (principal); G89.29 Other chronic pain; M17.11 Unilateral primary osteoarthritis, right knee; Z96.651 Presence of right artificial knee joint; I25.10 Atherosclerotic heart disease of native coronary artery without angina pectoris; I10 Essential (primary) hypertension; E78.5 Hyperlipidemia, unspecified; E78.00 Pure hypercholesterolemia, unspecified; E55.9 Vitamin D deficiency, unspecified; K29.70 Gastritis, unspecified, without bleeding; J44.9 Chronic obstructive pulmonary disease, unspecified; Z86.718 Personal history of other venous thrombosis and embolism; Z79.01 Long term (current) use of anticoagulants